=== PATIENT | male | born 1970 | race Caucasian/White ===

== ENCOUNTER 2016-12-07 16:24 | Emergency (ER) | payer MEDICAID ==
[~2016-12-07] VITALS: Ht 170.2 cm; Wt 97.1 kg
[~2016-12-07 16:24] MED LIST: AMOX1TAB12 PO; BACL-19 PO; BACL20TA PO; CARI350T PO; CYAN250013 PO; DOXY100T PO; GABA300C10 PO; HYDR-3307 PO; INSU100V8 SQ; LIDO700A5 TD; LISI-167 PO; METF100010 PO; TRAZ100T15 PO
[2016-12-07] MEDS ORDERED: ONDANSETRON 2MG/ML, 2ML IVPush ONE (17:00)
[2016-12-07] MEDS ORDERED: SODIUM CHLORIDE FLUSH 10ML SYR IVF ONE (17:00)
[2016-12-07 17:07] LABS: HEMOGLOBIN 14.8 g/dL (13.7-18.0)
[2016-12-07 17:22] LABS: BLOOD UREA NITROGEN 6 mg/dL (7-18)
[2016-12-07] MEDS ORDERED: ONDANSETRON 2MG/ML, 2ML ONE (18:20)
[2016-12-07] MEDS ORDERED: HYDROmorphone 1 MG/ML, 1ML ONE ×2 (18:20→19:15)
[2016-12-07] MEDS: HYDROmorphone 1 MG/ML, 1ML IVPush PRN ×2 (18:23→19:17)
[2016-12-07] MEDS ORDERED: OMNIPAQUE 350 MG/ML, 100ML BOTTLE ONE (20:06)
[2016-12-07] MEDS ORDERED: LORazepam 1MG TABLET PO ONE (21:00)
[2016-12-07 21:07] VITALS: BP 146/68
== END 2016-12-07 21:09 | disposition home or self-care (01) ==
LOC: ED 20:55
DX: M79.661 Pain in right lower leg (principal); I10 Essential (primary) hypertension; E11.9 Type 2 diabetes mellitus without complications; E78.00 Pure hypercholesterolemia, unspecified; M54.9 Dorsalgia, unspecified; G89.29 Other chronic pain; F10.20 Alcohol dependence, uncomplicated; F17.210 Nicotine dependence, cigarettes, uncomplicated
CPT/HCPCS: 36415; 73701; 80048; 82040; 85025; 93971; 96374; 96375; 96376; 99285; J1170; J2405; Q9967

== ENCOUNTER 2017-01-24 20:33 | Inpatient (IN) | payer MEDICAID ==
[~2017-01-24] VITALS: Ht 170.2 cm; Wt 103.5 kg
[2017-01-24] MEDS ORDERED: SODIUM CHLORIDE 0.9% 1,000 ML IV ONE (20:49)
[2017-01-24] MEDS ORDERED: ONDANSETRON 2MG/ML, 2ML IVPush ONE (21:00)
[2017-01-24] MEDS ORDERED: SODIUM CHLORIDE FLUSH 10ML SYR IVF ONE (21:00)
[2017-01-24] MEDS ORDERED: SODIUM CHLORIDE 0.9% 1,000ML IVBOLUS ONE (21:00)
[2017-01-24] MEDS ORDERED: MORPHINE SULFATE 4 MG/ML, 1ML ONE ×2 (21:18→21:34)
[2017-01-24] MEDS ORDERED: ONDANSETRON 2MG/ML, 2ML ONE (21:18)
[2017-01-24 21:22] LABS: ASPARTATE AMINO TRANSFERASE 11 U/L (15-37); BLOOD UREA NITROGEN 10 mg/dL (7-18)
[2017-01-24] MEDS: MORPHINE SULFATE 4 MG/ML, 1ML IVPush PRN ×2 (21:22→21:40)
[2017-01-24] MEDS ORDERED: CEFTRIAXONE PMX 1GM/50ML 50 ML ONE (21:55)
[2017-01-24] MEDS ORDERED: AZITHROMYCIN 500 MG in SODIUM CHLORIDE 0.9% 250 ML IV ONE (22:00)
[2017-01-24] MEDS ORDERED: CEFTRIAXONE PMX 1GM/50ML 50 ML IVPB ONE (22:00)
[2017-01-24] MEDS ORDERED: morphine SULFATE 10 MG/ML, 1ML ONE (22:21)
[2017-01-24 22:22] LABS: RAPID INFLUENZA A Negative (Negative); RAPID INFLUENZA B Negative (Negative)
[2017-01-24] MEDS: morphine SULFATE 10 MG/ML, 1ML IVPush PRN (22:26)
[2017-01-24] MEDS ORDERED: ENALAPRILAT 1.25 MG/ML, 2ML IV PRN (22:30)
[2017-01-24] MEDS ORDERED: GUAIFENESIN/DM 200-20MG, 10ML UDC PO PRN (22:30)
[2017-01-24] MEDS ORDERED: DOCUSATE 100 MG CAPSULE PO PRN (22:30)
[2017-01-24] MEDS: CEFTRIAXONE PMX 1GM/50ML 50 ML IV SCH (22:30)
[2017-01-24] MEDS ORDERED: ACETAMINOPHEN 325 MG TABLET PO PRN (22:30)
[2017-01-24] MEDS ORDERED: POLYETHYLENE GLYCOL 17 GM PACKET PO PRN (22:30)
[2017-01-24] MEDS ORDERED: hydrALAzine 20 MG/ML, 1ML IV PRN (22:30)
[2017-01-24] MEDS ORDERED: ONDANSETRON 2MG/ML, 2ML IVPush PRN (22:30)
[2017-01-24] MEDS ORDERED: LABETALOL 5MG/ML, 20ML IVPush PRN (22:30)
[2017-01-24 23:09] VITALS: BP 124/75
[2017-01-25] MEDS: NS + 20MEQ KCL 1,000 ML IV SCH ×2 (00:13→09:11)
[2017-01-25] MEDS: DOXYCYCLINE 100 MG in DEXTROSE 5% 250 ML IV SCH ×3 (00:13→21:50)
[2017-01-25] MEDS: TRAZODONE 100MG TABLET PO SCH ×2 (00:13→21:50)
[2017-01-25] MEDS: BACLOFEN 10 MG TABLET PO SCH ×3 (00:14→21:49)
[2017-01-25] MEDS: ENOXAPARIN 40 MG/0.4 ML SQ SCH ×2 (00:14→21:51)
[2017-01-25] MEDS: metFORMIN XR 500 MG TAB.ER.24H PO SCH ×3 (00:14→21:49)
[2017-01-25] MEDS: NICOTINE 14MG/24 HR PATCH.TD24 TD SCH ×2 (00:14→21:54)
[2017-01-25] MEDS: GABAPENTIN 300 MG CAPSULE PO SCH ×4 (00:14→21:47)
[2017-01-25] MEDS: LIDODERM 5% PATCH TD SCH ×2 (00:15→21:54)
[2017-01-25] MEDS: INSULIN DETEMIR 100 UNITS/ML, PEN SQ-INSULIN SCH ×3 (00:16→21:53)
[2017-01-25] MEDS: morphine SULFATE 10 MG/ML, 1ML IVPush PRN ×3 (02:18→16:42)
[2017-01-25 02:22] VITALS: BP 126/79
[2017-01-25 05:30] LABS: BLOOD UREA NITROGEN 11 mg/dL (7-18)
[2017-01-25 07:47] VITALS: BP 128/81
[2017-01-25] MEDS: LISINOPRIL 10 MG TABLET PO SCH (08:37)
[2017-01-25] MEDS: HYDROcodone/APAP 5/325 TABLET PO PRN ×2 (09:10→16:25)
[2017-01-25] MEDS: INSULIN ASPART 100 UNITS/ML, PEN SQ-INSULIN SCH ×4 (09:12→21:53)
[2017-01-25 16:37] VITALS: BP 128/79
[2017-01-25 21:24] VITALS: BP 125/77
[2017-01-25] MEDS: CEFTRIAXONE PMX 1GM/50ML 50 ML IV SCH (21:51)
[2017-01-26 00:39] VITALS: BP 143/92
[2017-01-26] MEDS: HYDROcodone/APAP 5/325 TABLET PO PRN ×3 (00:52→19:59)
[2017-01-26] MEDS: morphine SULFATE 10 MG/ML, 1ML IVPush PRN ×4 (04:35→22:35)
[2017-01-26 04:41] LABS: BLOOD UREA NITROGEN 14 mg/dL (7-18)
[2017-01-26 04:45] LABS: ASPARTATE AMINO TRANSFERASE 9 U/L (15-37)
[2017-01-26 07:32] VITALS: BP 101/61
[2017-01-26] MEDS: INSULIN ASPART 100 UNITS/ML, PEN SQ-INSULIN SCH ×4 (08:05→19:54)
[2017-01-26] MEDS: BACLOFEN 10 MG TABLET PO SCH ×2 (08:06→20:00)
[2017-01-26] MEDS: GABAPENTIN 300 MG CAPSULE PO SCH ×3 (08:06→20:00)
[2017-01-26] MEDS: LISINOPRIL 10 MG TABLET PO SCH (08:07)
[2017-01-26] MEDS: metFORMIN XR 500 MG TAB.ER.24H PO SCH ×2 (08:07→20:00)
[2017-01-26] MEDS: INSULIN DETEMIR 100 UNITS/ML, PEN SQ-INSULIN SCH ×2 (08:13→19:53)
[2017-01-26] MEDS: DOXYCYCLINE 100 MG in DEXTROSE 5% 250 ML IV SCH ×2 (09:00→23:41)
[2017-01-26 13:18] VITALS: BP 99/67
[2017-01-26] MEDS ORDERED: ALBUTEROL SULFATE 2.5 MG/3 ML ONE (17:03)
[2017-01-26] MEDS ORDERED: ALBUTEROL SULFATE 2.5 MG/3 ML NPPB PRN (17:30)
[2017-01-26 19:58] VITALS: BP 126/71
[2017-01-26] MEDS: NICOTINE 14MG/24 HR PATCH.TD24 TD SCH (20:09)
[2017-01-26] MEDS: TRAZODONE 100MG TABLET PO SCH (21:00)
[2017-01-26] MEDS: ENOXAPARIN 40 MG/0.4 ML SQ SCH (22:34)
[2017-01-26] MEDS: CEFTRIAXONE PMX 1GM/50ML 50 ML IV SCH (22:34)
[2017-01-26] MEDS: LIDODERM 5% PATCH TD SCH (22:35)
[2017-01-27 01:39] VITALS: BP 123/72
[2017-01-27] MEDS: TRAZODONE 100MG TABLET PO SCH (01:51)
[2017-01-27] MEDS: HYDROcodone/APAP 5/325 TABLET PO PRN (05:29)
[2017-01-27 06:09] LABS: ASPARTATE AMINO TRANSFERASE 13 U/L (15-37); BLOOD UREA NITROGEN 12 mg/dL (7-18)
[2017-01-27] MEDS: INSULIN ASPART 100 UNITS/ML, PEN SQ-INSULIN SCH (07:00)
[2017-01-27 07:40] VITALS: BP 115/76
[2017-01-27] MEDS ORDERED: CEFD300C37 PO (09:15)
[2017-01-27] MEDS ORDERED: DOXY100T PO (09:15)
[2017-01-27] MEDS: DOXYCYCLINE 100 MG in DEXTROSE 5% 250 ML IV SCH (09:18)
[2017-01-27] MEDS: LISINOPRIL 10 MG TABLET PO SCH (09:19)
[2017-01-27] MEDS: GABAPENTIN 300 MG CAPSULE PO SCH (09:19)
[2017-01-27] MEDS: BACLOFEN 10 MG TABLET PO SCH (09:19)
[2017-01-27] MEDS: INSULIN DETEMIR 100 UNITS/ML, PEN SQ-INSULIN SCH (09:19)
[2017-01-27] MEDS: metFORMIN XR 500 MG TAB.ER.24H PO SCH (09:19)
== END 2017-01-27 10:30 | disposition home or self-care (01) | DRG 871 ==
LOC: SUATTDRO 22:05 → ED 22:07 → EDIP 22:12 → 3NW 23:03
PROVIDERS: ADMIT Family Medicine; ATTEND Family Medicine
DX: A41.9 Sepsis, unspecified organism (principal); J18.9 Pneumonia, unspecified organism; E87.1 Hypo-osmolality and hyponatremia; I10 Essential (primary) hypertension; F17.210 Nicotine dependence, cigarettes, uncomplicated; R09.02 Hypoxemia; E11.65 Type 2 diabetes mellitus with hyperglycemia; F10.21 Alcohol dependence, in remission; J02.0 Streptococcal pharyngitis; Z71.6 Tobacco abuse counseling; Z88.6 Allergy status to analgesic agent; Z79.4 Long term (current) use of insulin; Z79.899 Other long term (current) drug therapy; Z79.84 Long term (current) use of oral hypoglycemic drugs; Z82.49 Family history of ischemic heart disease and other diseases of the circulatory system
CPT/HCPCS: 36415; 71010; 80048; 80053; 81003; 82962; 83605; 85025; 87040; 87400; 87880; 93005; 96365; 96368; 96375; 96376; J0456; J0696; J1650; J1815; J2405; J3480; J7060; J2270; J7030; J7050

== ENCOUNTER 2017-03-13 11:21 | Emergency (ER) | payer MEDICAID ==
[~2017-03-13] VITALS: Ht 170.2 cm; Wt 104.3 kg
[~2017-03-13 11:21] MED LIST changes: +CEFD300C37 PO
[2017-03-13] MEDS ORDERED: SODIUM CHLORIDE FLUSH 10ML SYR IVF ONE (12:00)
[2017-03-13] MEDS ORDERED: ONDANSETRON 2MG/ML, 2ML IVPush ONE (12:00)
[2017-03-13] MEDS ORDERED: SODIUM CHLORIDE 0.9% 1,000ML IVBOLUS ONE (12:00)
[2017-03-13] MEDS ORDERED: FAMOTIDINE 20 MG/2 ML IVP ONE (12:00)
[2017-03-13] MEDS ORDERED: MORPHINE SULFATE 4 MG/ML, 1ML ONE ×2 (12:04→12:52)
[2017-03-13] MEDS ORDERED: FAMOTIDINE 20 MG/2 ML ONE (12:04)
[2017-03-13] MEDS ORDERED: ONDANSETRON 2MG/ML, 2ML ONE (12:04)
[2017-03-13] MEDS: MORPHINE SULFATE 4 MG/ML, 1ML IVPush PRN ×2 (12:10→12:58)
[2017-03-13 12:19] LABS: ASPARTATE AMINO TRANSFERASE 26 U/L (15-37); BLOOD UREA NITROGEN 16 mg/dL (7-18)
[2017-03-13] MEDS ORDERED: SIMV10TA3 PO (13:08)
[2017-03-13] MEDS ORDERED: SIMV5TAB5 PO (13:08)
[2017-03-13 13:50] VITALS: BP 116/43
== END 2017-03-13 14:45 | disposition home or self-care (01) ==
LOC: ED 12:06
DX: R10.13 Epigastric pain (principal); R11.2 Nausea with vomiting, unspecified; R19.7 Diarrhea, unspecified; E10.65 Type 1 diabetes mellitus with hyperglycemia; I10 Essential (primary) hypertension; E78.00 Pure hypercholesterolemia, unspecified
CPT/HCPCS: 36415; 74022; 80053; 81003; 82010; 82800; 82962; 83690; 85025; 93005; 96361; 96374; 96375; 96376; 99285; J2405; J7030; S0028

== ENCOUNTER 2017-04-04 15:20 | Emergency (ER) | payer MEDICAID ==
[~2017-04-04] VITALS: Ht 170.2 cm; Wt 103.5 kg
[~2017-04-04 15:20] MED LIST changes: +SIMV10TA3 PO; +SIMV5TAB5 PO
[2017-04-04] MEDS ORDERED: SODIUM CHLORIDE FLUSH 10ML SYR IVF ONE (15:30)
[2017-04-04] MEDS ORDERED: SODIUM CHLORIDE 0.9% 1,000ML IVBOLUS ONE (15:30)
[2017-04-04 15:46] LABS: PH, VENOUS 7.405 pH (7.320-7.420)
[2017-04-04 15:59] LABS: BLOOD UREA NITROGEN 13 mg/dL (7-18)
[2017-04-04 16:47] VITALS: BP 117/88
[2017-04-04] MEDS ORDERED: INSULIN REGULAR 100 UNITS/ML, 3ML VIAL SQ-INSULIN ONE (17:00)
[2017-04-04] MEDS ORDERED: INSULIN SINGLE DOSE, ER SQ-INSULIN ONE (17:04)
== END 2017-04-04 17:31 | disposition home or self-care (01) ==
LOC: ED 17:26
DX: E11.65 Type 2 diabetes mellitus with hyperglycemia (principal); Z79.4 Long term (current) use of insulin
CPT/HCPCS: 36415; 80048; 82010; 82040; 82803; 82962; 85025; 96360; 99284; J7030

== ENCOUNTER 2017-04-05 10:21 | Emergency (ER) | payer MEDICAID ==
[~2017-04-05] VITALS: Ht 170.2 cm; Wt 104.6 kg
[2017-04-05] MEDS ORDERED: SODIUM CHLORIDE 0.9% 1,000ML IVBOLUS ONE (11:00)
[2017-04-05] MEDS ORDERED: ONDANSETRON 2MG/ML, 2ML IVPush ONE (11:00)
[2017-04-05] MEDS ORDERED: ONDANSETRON 2MG/ML, 2ML ONE (11:07)
[2017-04-05] MEDS ORDERED: MORPHINE SULFATE 4 MG/ML, 1ML ONE ×2 (11:07→12:10)
[2017-04-05 11:11] LABS: ABG COLLECTION SITE NOT DOCUMENTED
[2017-04-05] MEDS: MORPHINE SULFATE 4 MG/ML, 1ML IVPush PRN ×2 (11:11→12:12)
[2017-04-05 11:13] LABS: BLOOD UREA NITROGEN 10 mg/dL (7-18)
[2017-04-05 12:05] VITALS: BP 121/61
== END 2017-04-05 12:36 | disposition home or self-care (01) ==
LOC: ED 10:40
DX: E11.65 Type 2 diabetes mellitus with hyperglycemia (principal); K08.89 Other specified disorders of teeth and supporting structures; E78.00 Pure hypercholesterolemia, unspecified; F10.229 Alcohol dependence with intoxication, unspecified; I10 Essential (primary) hypertension; Z79.4 Long term (current) use of insulin
CPT/HCPCS: 36415; 80048; 81003; 82010; 82040; 82803; 82962; 85025; 96374; 96375; 96376; 99284; J2405; J7030

== ENCOUNTER 2017-04-09 09:38 | Emergency (ER) | payer MEDICAID ==
[~2017-04-09] VITALS: Ht 162.6 cm; Wt 100.0 kg
[2017-04-09] MEDS ORDERED: DEXAMETHASONE 4 MG/ML, 1ML IVPush ONE (10:00)
[2017-04-09] MEDS ORDERED: MORPHINE SULFATE 4 MG/ML, 1ML IVPush ONE (10:00)
[2017-04-09] MEDS ORDERED: CLINDAMYCIN PMX 900MG/50ML 50 ML IV ONE (10:00)
[2017-04-09] MEDS ORDERED: MORPHINE SULFATE 4 MG/ML, 1ML ONE (10:07)
[2017-04-09] MEDS ORDERED: CLINDAMYCIN PMX 900MG/50ML 50 ML ONE (10:08)
[2017-04-09] MEDS ORDERED: DEXAMETHASONE 4 MG/ML, 1ML ONE (10:08)
[2017-04-09 10:15] VITALS: BP 136/85
[2017-04-10] MEDS ORDERED: OXYC5CAP4 PO (15:01)
== END 2017-04-09 11:24 | disposition home or self-care (01) ==
LOC: ED 09:52
DX: L03.211 Cellulitis of face (principal); E78.00 Pure hypercholesterolemia, unspecified; F10.229 Alcohol dependence with intoxication, unspecified; M54.9 Dorsalgia, unspecified; G89.29 Other chronic pain; E11.9 Type 2 diabetes mellitus without complications; I10 Essential (primary) hypertension; Z87.891 Personal history of nicotine dependence; Z90.49 Acquired absence of other specified parts of digestive tract
CPT/HCPCS: 96365; 96375; 99284; J1100

== ENCOUNTER 2017-04-10 14:46 | Emergency (ER) | payer MEDICAID ==
[~2017-04-10] VITALS: Ht 170.2 cm; Wt 103.0 kg
[2017-04-10] MEDS ORDERED: OXYC5CAP4 PO (15:01)
[2017-04-10] MEDS ORDERED: FAMOTIDINE 20 MG/2 ML ONE (15:21)
[2017-04-10] MEDS ORDERED: ONDANSETRON 2MG/ML, 2ML ONE (15:21)
[2017-04-10] MEDS ORDERED: ACETAMINOPHEN 325 MG TABLET ONE (15:21)
[2017-04-10] MEDS ORDERED: ACETAMINOPHEN 325 MG TABLET PO ONE (15:30)
[2017-04-10] MEDS ORDERED: FAMOTIDINE 20 MG/2 ML IVPush ONE (15:30)
[2017-04-10] MEDS ORDERED: ONDANSETRON 2MG/ML, 2ML IVPush ONE (15:30)
[2017-04-10] MEDS ORDERED: SODIUM CHLORIDE 0.9% 1,000ML IVBOLUS ONE (15:30)
[2017-04-10 15:31] LABS: PH, VENOUS 7.374 pH (7.320-7.420)
[2017-04-10 15:41] LABS: ASPARTATE AMINO TRANSFERASE 7 U/L (15-37); BLOOD UREA NITROGEN 20 mg/dL (7-18)
[2017-04-10] MEDS ORDERED: AMPICILLIN/SULBACTAM 3 GM IM ONE (16:00)
[2017-04-10] MEDS ORDERED: OMNIPAQUE 350 MG/ML, 100ML BOTTLE ONE (16:11)
[2017-04-10 17:07] VITALS: BP 89/67
== END 2017-04-10 17:10 | disposition left against medical advice (07) ==
LOC: ED 15:28
DX: K04.7 Periapical abscess without sinus (principal); F17.200 Nicotine dependence, unspecified, uncomplicated; E78.00 Pure hypercholesterolemia, unspecified; I10 Essential (primary) hypertension; E11.65 Type 2 diabetes mellitus with hyperglycemia; Z90.49 Acquired absence of other specified parts of digestive tract; Z79.82 Long term (current) use of aspirin
CPT/HCPCS: 36415; 70487; 80053; 82010; 82803; 83605; 85025; 87040; 96361; 96374; 96375; 99285; J2405; J7030; Q9967; S0028

== ENCOUNTER 2017-09-20 17:13 | Emergency (ER) | payer MEDICAID ==
[~2017-09-20] VITALS: Ht 170.2 cm; Wt 100.0 kg
[~2017-09-20 17:13] MED LIST changes: +OXYC5CAP2 PO
[2017-09-20 18:11] LABS: BASOPHILS # (AUTO) 0.05 x10^3/uL (0-0.1); BASOPHILS % (AUTO) 1 % (0-1); EOSINOPHILS # (AUTO) 0.17 x10^3/uL (0-0.4); EOSINOPHILS % (AUTO) 2 % (1-7); LYMPHOCYTES # (AUTO) 3.34 x10^3/uL (1-3.4); LYMPHOCYTES % (AUTO) 45 % (22-44); MD NO; MEAN CORPUSCULAR HEMOGLOBIN 34.6 pg (27.5-34.5); MEAN CORPUSCULAR VOLUME 101.9 fL (81-97); MEAN PLATELET VOLUME 7.9 fL (7.4-10.4); MONOCYTES # (AUTO) 0.53 x10^3/uL (0.2-0.8); MONOCYTES % (AUTO) 7 % (2-9); NEUTROPHILS # (AUTO) 3.35 x10^3/uL (1.8-6.8); NEUTROPHILS % (AUTO) 45 % (42-75); PLATELET COUNT 244 x10^3/uL (130-400); RED BLOOD COUNT 4.56 x10^6/uL (4.38-5.82); RED CELL DISTRIBUTION WIDTH 14.2 % (9.4-14.8)
[2017-09-20 18:24] LABS: ALANINE AMINOTRANSFERASE 137 U/L (12-78); ALBUMIN 3.8 g/dL (3.4-5.0); ANION GAP 15 mmol/L (5-15); CALCIUM 8.2 mg/dL (8.5-10.1); CHLORIDE 100 mmol/L (98-107); CREATININE 0.88 mg/dL (0.7-1.3)
[2017-09-20 18:26] LABS: ALKALINE PHOSPHATASE 95 U/L (45-117); BILIRUBIN,TOTAL 0.4 mg/dL (0.2-1.0); TOTAL PROTEIN 7.8 g/dL (6.4-8.2)
[2017-09-20 19:52] VITALS: BP 107/52
== END 2017-09-20 20:47 | disposition home or self-care (01) ==
LOC: ED 20:38
DX: E11.65 Type 2 diabetes mellitus with hyperglycemia (principal); E78.00 Pure hypercholesterolemia, unspecified; I10 Essential (primary) hypertension; I25.2 Old myocardial infarction; Z88.6 Allergy status to analgesic agent; Z90.49 Acquired absence of other specified parts of digestive tract; F10.229 Alcohol dependence with intoxication, unspecified
CPT/HCPCS: 36415; 71045; 80053; 83605; 85025; 93005; 99285

== ENCOUNTER 2017-09-23 17:31 | Emergency (ER) | payer MEDICAID ==
[~2017-09-23] VITALS: Ht 170.2 cm; Wt 91.1 kg
[2017-09-23] MEDS ORDERED: INSULIN REGULAR 100 UNITS/ML, 3ML VIAL ONE ×2 (17:50→19:47)
[2017-09-23 17:52] LABS: PH, VENOUS 7.411 pH (7.320-7.420)
[2017-09-23 17:56] LABS: BASOPHILS # (AUTO) 0.03 x10^3/uL (0-0.1); BASOPHILS % (AUTO) 1 % (0-1); EOSINOPHILS # (AUTO) 0.15 x10^3/uL (0-0.4); EOSINOPHILS % (AUTO) 3 % (1-7); LYMPHOCYTES # (AUTO) 1.76 x10^3/uL (1-3.4); LYMPHOCYTES % (AUTO) 33 % (22-44); MD NO; MEAN CORPUSCULAR HEMOGLOBIN 34.9 pg (27.5-34.5); MEAN CORPUSCULAR HGB CONC 34.1 g/dL (33.2-36.2); MEAN CORPUSCULAR VOLUME 102.5 fL (81-97); MEAN PLATELET VOLUME 8.3 fL (7.4-10.4); MONOCYTES # (AUTO) 0.47 x10^3/uL (0.2-0.8); MONOCYTES % (AUTO) 9 % (2-9); NEUTROPHILS # (AUTO) 2.94 x10^3/uL (1.8-6.8); NEUTROPHILS % (AUTO) 55 % (42-75); PLATELET COUNT 161 x10^3/uL (130-400); RED BLOOD COUNT 4.42 x10^6/uL (4.38-5.82); RED CELL DISTRIBUTION WIDTH 13.5 % (9.4-14.8)
[2017-09-23] MEDS ORDERED: FLUO10TA PO (17:56)
[2017-09-23] MEDS ORDERED: INSULIN REGULAR 100 UNITS/ML, 3ML VIAL SQ-INSULIN ONE (18:00)
[2017-09-23] MEDS ORDERED: HYDROcodone/APAP 5/325 TABLET PO ONE ×2 (18:00→20:00)
[2017-09-23] MEDS ORDERED: SODIUM CHLORIDE 0.9% 1,000ML IVBOLUS ONE (18:00)
[2017-09-23 18:05] LABS: ALANINE AMINOTRANSFERASE 98 U/L (12-78); ALBUMIN 3.3 g/dL (3.4-5.0); ANION GAP 8 mmol/L (5-15); CALCIUM 8.7 mg/dL (8.5-10.1); CHLORIDE 97 mmol/L (98-107); CREATININE 0.97 mg/dL (0.7-1.3)
[2017-09-23 18:07] LABS: ALKALINE PHOSPHATASE 101 U/L (45-117); BILIRUBIN,TOTAL 0.8 mg/dL (0.2-1.0); TOTAL PROTEIN 6.8 g/dL (6.4-8.2)
[2017-09-23 18:10] LABS: ACETONE, SERUM Negative (Negative)
[2017-09-23] MEDS ORDERED: HYDROcodone/APAP 5/325 TABLET ONE ×2 (18:20→19:52)
[2017-09-23] MEDS ORDERED: metFORMIN 500 MG TABLET PO ONE (18:30)
[2017-09-23] MEDS ORDERED: INSULIN REGULAR 100 UNITS/ML, 3ML VIAL IVPush ONE (19:30)
[2017-09-23 20:12] VITALS: BP 122/76
== END 2017-09-23 21:00 | disposition home or self-care (01) ==
LOC: ED 19:56
DX: E11.65 Type 2 diabetes mellitus with hyperglycemia (principal); Z79.4 Long term (current) use of insulin
CPT/HCPCS: 36415; 80053; 82010; 82803; 83690; 85025; 96361; 96372; 96374; 99284; J7030

== ENCOUNTER 2017-10-06 02:35 | Emergency (ER) | payer MEDICAID ==
[~2017-10-06] VITALS: Ht 170.2 cm; Wt 95.7 kg
[~2017-10-06 02:35] MED LIST changes: +FLUO10TA PO
[2017-10-06 02:37] VITALS: BP 137/90
[2017-10-06] MEDS ORDERED: AZITHROMYCIN 500 MG TABLET PO ONE (03:30)
[2017-10-06] MEDS ORDERED: CEFTRIAXONE 250 MG IM ONE (03:30)
[2017-10-06] MEDS ORDERED: AZITHROMYCIN 250 MG TABLET ONE (03:42)
[2017-10-06] MEDS ORDERED: CEFTRIAXONE 250 MG ONE (03:42)
== END 2017-10-06 03:54 | disposition home or self-care (01) ==
LOC: ED 03:10
DX: A56.01 Chlamydial cystitis and urethritis (principal); B37.42 Candidal balanitis
CPT/HCPCS: 87491; 87591; 96372; 99284; J0696

== ENCOUNTER 2018-03-29 14:25 | Emergency (ER) | payer MEDICAID ==
[~2018-03-29] VITALS: Ht 170.2 cm; Wt 99.5 kg
[2018-03-29] MEDS ORDERED: MORPHINE SULFATE 4 MG/ML, 1ML ONE ×2 (15:20→15:56)
[2018-03-29] MEDS ORDERED: ONDANSETRON 2MG/ML, 2ML ONE (15:20)
[2018-03-29] MEDS ORDERED: ONDANSETRON 2MG/ML, 2ML IVPush ONE (15:30)
[2018-03-29] MEDS ORDERED: SODIUM CHLORIDE FLUSH 10ML SYR IVF ONE (15:30)
[2018-03-29 15:33] LABS: BASOPHILS # (AUTO) 0.04 x10^3/uL (0-0.1); BASOPHILS % (AUTO) 0 % (0-1); EOSINOPHILS # (AUTO) 0.14 x10^3/uL (0-0.4); EOSINOPHILS % (AUTO) 1 % (1-7); LYMPHOCYTES # (AUTO) 2.22 x10^3/uL (1-3.4); LYMPHOCYTES % (AUTO) 22 % (22-44); MD NO; MEAN CORPUSCULAR HEMOGLOBIN 32.9 pg (27.5-34.5); MEAN CORPUSCULAR HGB CONC 33.4 g/dL (33.2-36.2); MEAN CORPUSCULAR VOLUME 98.7 fL (81-97); MEAN PLATELET VOLUME 8.4 fL (7.4-10.4); MONOCYTES # (AUTO) 0.64 x10^3/uL (0.2-0.8); MONOCYTES % (AUTO) 6 % (2-9); NEUTROPHILS # (AUTO) 7.09 x10^3/uL (1.8-6.8); NEUTROPHILS % (AUTO) 70 % (42-75); PLATELET COUNT 200 x10^3/uL (130-400); RED BLOOD COUNT 4.98 x10^6/uL (4.38-5.82)
[2018-03-29] MEDS: MORPHINE SULFATE 4 MG/ML, 1ML IVPush PRN ×2 (15:36→15:59)
[2018-03-29 15:44] LABS: ALBUMIN 3.9 g/dL (3.4-5.0); ANION GAP 8 mmol/L (5-15); CALCIUM 9.1 mg/dL (8.5-10.1); CHLORIDE 102 mmol/L (98-107); CREATININE 0.87 mg/dL (0.7-1.3)
[2018-03-29 16:43] VITALS: BP 179/83
== END 2018-03-29 17:16 | disposition home or self-care (01) ==
LOC: ED 17:04
DX: H60.12 Cellulitis of left external ear (principal); L03.211 Cellulitis of face; H93.8X2 Other specified disorders of left ear; I10 Essential (primary) hypertension; E11.9 Type 2 diabetes mellitus without complications; E78.00 Pure hypercholesterolemia, unspecified; Z87.891 Personal history of nicotine dependence
CPT/HCPCS: 36415; 70487; 80048; 82040; 85025; 96374; 96375; 99285; J2405

== ENCOUNTER 2018-04-01 17:30 | Inpatient (IN) | payer MEDICAID ==
[~2018-04-01] VITALS: Ht 170.2 cm; Wt 88.0 kg
[2018-04-01] MEDS ORDERED: ACETAMINOPHEN 500 MG TABLET PO ONE (18:30)
[2018-04-01] MEDS ORDERED: FAMOTIDINE 20 MG/2 ML IVPush ONE (18:30)
[2018-04-01] MEDS ORDERED: SODIUM CHLORIDE 0.9% 1,000ML IVBOLUS ONE (18:30)
[2018-04-01] MEDS ORDERED: ONDANSETRON 2MG/ML, 2ML IVPush ONE (18:30)
[2018-04-01] MEDS ORDERED: PANTOPRAZOLE 40 MG IV IVPush ONE (18:30)
[2018-04-01 18:42] LABS: BASOPHILS # (AUTO) 0.04 x10^3/uL (0-0.1); BASOPHILS % (AUTO) 0 % (0-1); EOSINOPHILS # (AUTO) 0.11 x10^3/uL (0-0.4); EOSINOPHILS % (AUTO) 1 % (1-7); LYMPHOCYTES # (AUTO) 2.11 x10^3/uL (1-3.4); LYMPHOCYTES % (AUTO) 25 % (22-44); MD NO; MEAN CORPUSCULAR HEMOGLOBIN 33.8 pg (27.5-34.5); MEAN CORPUSCULAR HGB CONC 34.1 g/dL (33.2-36.2); MEAN CORPUSCULAR VOLUME 99.1 fL (81-97); MEAN PLATELET VOLUME 8.4 fL (7.4-10.4); MONOCYTES # (AUTO) 0.62 x10^3/uL (0.2-0.8); MONOCYTES % (AUTO) 8 % (2-9); NEUTROPHILS # (AUTO) 5.47 x10^3/uL (1.8-6.8); NEUTROPHILS % (AUTO) 66 % (42-75); PLATELET COUNT 222 x10^3/uL (130-400); RED BLOOD COUNT 4.89 x10^6/uL (4.38-5.82); RED CELL DISTRIBUTION WIDTH 13.8 % (9.4-14.8)
[2018-04-01 18:54] LABS: ALANINE AMINOTRANSFERASE 43 U/L (12-78); ALBUMIN 3.7 g/dL (3.4-5.0); ANION GAP 9 mmol/L (5-15); CALCIUM 9.2 mg/dL (8.5-10.1); CHLORIDE 104 mmol/L (98-107); CREATININE 0.88 mg/dL (0.7-1.3)
[2018-04-01 18:57] LABS: ALKALINE PHOSPHATASE 67 U/L (45-117); BILIRUBIN,TOTAL 0.6 mg/dL (0.2-1.0); TOTAL PROTEIN 7.7 g/dL (6.4-8.2)
[2018-04-01] MEDS ORDERED: FAMOTIDINE 20 MG/2 ML ONE (18:58)
[2018-04-01] MEDS ORDERED: ONDANSETRON 2MG/ML, 2ML ONE (18:58)
[2018-04-01] MEDS ORDERED: ACETAMINOPHEN 500 MG TABLET ONE (18:58)
[2018-04-01] MEDS ORDERED: PANTOPRAZOLE 40 MG IV ONE (18:58)
[2018-04-01 18:59] LABS: MICROSCOPIC NOT IND
[2018-04-01 19:04] LABS: CULTURE INDICATED? NO
[2018-04-01] MEDS ORDERED: OMNIPAQUE 350 MG/ML, 100ML BOTTLE ONE (19:42)
[2018-04-01] MEDS ORDERED: INSU100I34 SC (21:09)
[2018-04-01] MEDS ORDERED: CLON1TAB23 PO (21:09)
[2018-04-01] MEDS ORDERED: QUET300T5 PO (21:09)
[2018-04-01] MEDS ORDERED: CEPH-376 PO (21:09)
[2018-04-01] MEDS ORDERED: METO25TA35 PO (21:09)
[2018-04-01] MEDS ORDERED: ONDANSETRON 2MG/ML, 2ML IVPush PRN (21:30)
[2018-04-01] MEDS ORDERED: CEFTRIAXONE 250 MG IV ONE (21:30)
[2018-04-01] MEDS ORDERED: POLYETHYLENE GLYCOL 17 GM PACKET PO PRN (21:30)
[2018-04-01] MEDS ORDERED: ACETAMINOPHEN 325 MG TABLET PO PRN (21:30)
[2018-04-01] MEDS ORDERED: AZITHROMYCIN 500 MG TABLET PO ONE (21:30)
[2018-04-01] MEDS ORDERED: BISACODYL 10 MG SUPP PR PRN (21:30)
[2018-04-01 21:35] LABS: HEMOGLOBIN A1C 10.2 % (4.2-6.3)
[2018-04-01] MEDS ORDERED: CEPHALEXIN 500 MG CAPSULE ONE (21:37)
[2018-04-01] MEDS ORDERED: AZITHROMYCIN 500 MG TABLET ONE (21:37)
[2018-04-01] MEDS ORDERED: CEFTRIAXONE 250 MG ONE (21:37)
[2018-04-01] MEDS: SODIUM CHLORIDE FLUSH 10ML SYR IVF SCH (21:41)
[2018-04-01] MEDS: CEPHALEXIN 500 MG CAPSULE PO SCH (21:42)
[2018-04-01 21:55] LABS: FOLATE LEVEL > 20.0 ng/mL (3.1-17.5)
[2018-04-01] MEDS: NICOTINE 7 MG/24 HR PATCH.TD24 TD SCH (22:51)
[2018-04-01] MEDS: SIMVASTATIN 10 MG TABLET PO SCH (22:51)
[2018-04-01] MEDS: HYDROcodone/APAP 10/325 MG TABLET PO PRN (22:51)
[2018-04-01] MEDS: INSULIN LISPRO 100 UNITS/ML, PEN SQ-INSULIN SCH (22:51)
[2018-04-01] MEDS: QUETIAPINE 100MG TABLET PO SCH (22:51)
[2018-04-02 02:14] VITALS: BP 107/70
[2018-04-02] MEDS: CEPHALEXIN 500 MG CAPSULE PO SCH ×2 (02:49→12:00)
[2018-04-02] MEDS: INSULIN LISPRO 100 UNITS/ML, PEN SQ-INSULIN SCH ×3 (03:30→18:08)
[2018-04-02 05:15] LABS: CHLORIDE 108 mmol/L (98-107)
[2018-04-02 05:25] LABS: BASOPHILS # (AUTO) 0.04 x10^3/uL (0-0.1); BASOPHILS % (AUTO) 1 % (0-1); EOSINOPHILS % (AUTO) 3 % (1-7); LYMPHOCYTES # (AUTO) 2.39 x10^3/uL (1-3.4); LYMPHOCYTES % (AUTO) 38 % (22-44); MD NO; MEAN CORPUSCULAR HEMOGLOBIN 33.9 pg (27.5-34.5); MEAN CORPUSCULAR HGB CONC 34.2 g/dL (33.2-36.2); MEAN CORPUSCULAR VOLUME 99.2 fL (81-97); MEAN PLATELET VOLUME 8.7 fL (7.4-10.4); MONOCYTES # (AUTO) 0.57 x10^3/uL (0.2-0.8); MONOCYTES % (AUTO) 9 % (2-9); NEUTROPHILS # (AUTO) 3.11 x10^3/uL (1.8-6.8); NEUTROPHILS % (AUTO) 49 % (42-75); PLATELET COUNT 205 x10^3/uL (130-400); RED BLOOD COUNT 4.51 x10^6/uL (4.38-5.82); RED CELL DISTRIBUTION WIDTH 14.3 % (9.4-14.8)
[2018-04-02 05:27] LABS: ALANINE AMINOTRANSFERASE 35 U/L (12-78); ALBUMIN 3.2 g/dL (3.4-5.0); ALKALINE PHOSPHATASE 54 U/L (45-117); ANION GAP 8 mmol/L (5-15); BILIRUBIN,TOTAL 0.9 mg/dL (0.2-1.0); CALCIUM 8.8 mg/dL (8.5-10.1); CREATININE 0.76 mg/dL (0.7-1.3); TOTAL PROTEIN 6.6 g/dL (6.4-8.2)
[2018-04-02 06:49] VITALS: BP 123/82
[2018-04-02] MEDS: SENNA/DOCUSATE TABLET PO SCH (09:00)
[2018-04-02] MEDS: ALBUTEROL SULFATE 2.5MG/0.5ML NPPB SCH ×4 (12:00→22:00)
[2018-04-02] MEDS: PANTOPRAZOLE 40 MG IV IVPush SCH ×2 (12:00→22:36)
[2018-04-02] MEDS: LISINOPRIL 10 MG TABLET PO SCH (12:00)
[2018-04-02] MEDS: METOPROLOL TARTRATE 25 MG TABLET PO SCH (12:00)
[2018-04-02] MEDS: SODIUM CHLORIDE FLUSH 10ML SYR IVF SCH ×2 (12:00→22:36)
[2018-04-02] MEDS: FLUOXETINE 10 MG CAP PO SCH (12:00)
[2018-04-02 13:17] VITALS: BP 104/69
[2018-04-02] MEDS: SUCRALFATE 1 GM TABLET PO SCH ×2 (18:08→22:36)
[2018-04-02] MEDS: AMPICILLIN/SULBACTAM 3 GM in SODIUM CHLORIDE 0.9% 100 ML IV SCH (18:08)
[2018-04-02 19:19] VITALS: BP 107/71
[2018-04-02] MEDS ORDERED: CYCL-259 PO ×2 (20:36→20:40)
[2018-04-02] MEDS ORDERED: CYCLOBENZAPRINE 10 MG TABLET PO PRN (21:00)
[2018-04-02] MEDS: NICOTINE 7 MG/24 HR PATCH.TD24 TD SCH (22:35)
[2018-04-02] MEDS: HYDROcodone/APAP 10/325 MG TABLET PO PRN (22:37)
[2018-04-02] MEDS: SIMVASTATIN 10 MG TABLET PO SCH (22:37)
[2018-04-02] MEDS: QUETIAPINE 100MG TABLET PO SCH (22:37)
[2018-04-03] MEDS: AMPICILLIN/SULBACTAM 3 GM in SODIUM CHLORIDE 0.9% 100 ML IV SCH ×5 (00:06→23:59)
[2018-04-03] MEDS: INSULIN LISPRO 100 UNITS/ML, PEN SQ-INSULIN SCH ×5 (00:17→21:04)
[2018-04-03 01:09] VITALS: BP 98/64
[2018-04-03] MEDS: ALBUTEROL SULFATE 2.5MG/0.5ML NPPB SCH ×5 (06:00→22:37)
[2018-04-03 07:20] VITALS: BP 102/67
[2018-04-03] MEDS: SENNA/DOCUSATE TABLET PO SCH (09:00)
[2018-04-03] MEDS ORDERED: DIAZEPAM 5 MG/ML, 2ML IV ONE (09:00)
[2018-04-03] MEDS: LISINOPRIL 10 MG TABLET PO SCH (09:46)
[2018-04-03] MEDS: METOPROLOL TARTRATE 25 MG TABLET PO SCH (09:46)
[2018-04-03] MEDS: PANTOPRAZOLE 40 MG IV IVPush SCH (09:46)
[2018-04-03] MEDS: SUCRALFATE 1 GM TABLET PO SCH ×4 (09:46→21:03)
[2018-04-03] MEDS: FLUOXETINE 10 MG CAP PO SCH (09:46)
[2018-04-03] MEDS: SODIUM CHLORIDE FLUSH 10ML SYR IVF SCH ×2 (09:47→21:05)
[2018-04-03] MEDS ORDERED: MIDAZOLAM 1 MG/ML, 2ML ONE (10:32)
[2018-04-03] MEDS ORDERED: FENTANYL PF 250 MCG/5ML ONE (10:32)
[2018-04-03] MEDS: PANTOPROZOLE 40MG TABLET PO SCH (11:30)
[2018-04-03] MEDS: HYDROcodone/APAP 10/325 MG TABLET PO PRN ×2 (12:16→21:35)
[2018-04-03 13:22] VITALS: BP 125/80
[2018-04-03 19:16] VITALS: BP 108/74
[2018-04-03] MEDS: QUETIAPINE 100MG TABLET PO SCH (21:04)
[2018-04-03] MEDS: NICOTINE 7 MG/24 HR PATCH.TD24 TD SCH (21:04)
[2018-04-03] MEDS: SIMVASTATIN 10 MG TABLET PO SCH (21:04)
[2018-04-03] MEDS ORDERED: ALBUTEROL SULFATE 2.5 MG/3 ML ONE (22:34)
[2018-04-04 01:08] VITALS: BP 114/68
[2018-04-04] MEDS: AMPICILLIN/SULBACTAM 3 GM in SODIUM CHLORIDE 0.9% 100 ML IV SCH ×2 (05:49→12:40)
[2018-04-04] MEDS: ALBUTEROL SULFATE 2.5MG/0.5ML NPPB SCH (06:00)
[2018-04-04 07:15] VITALS: BP 106/71
[2018-04-04] MEDS ORDERED: ALBUTEROL SULFATE 2.5MG/0.5ML NPPB PRN (07:30)
[2018-04-04] MEDS: INSULIN LISPRO 100 UNITS/ML, PEN SQ-INSULIN SCH ×3 (08:14→16:31)
[2018-04-04] MEDS: METOPROLOL TARTRATE 25 MG TABLET PO SCH (08:15)
[2018-04-04] MEDS: FLUOXETINE 10 MG CAP PO SCH (08:15)
[2018-04-04] MEDS: LISINOPRIL 10 MG TABLET PO SCH (08:15)
[2018-04-04] MEDS: PANTOPROZOLE 40MG TABLET PO SCH (08:15)
[2018-04-04] MEDS: SENNA/DOCUSATE TABLET PO SCH (08:15)
[2018-04-04] MEDS: SODIUM CHLORIDE FLUSH 10ML SYR IVF SCH (08:16)
[2018-04-04] MEDS: SUCRALFATE 1 GM TABLET PO SCH ×3 (08:16→16:33)
[2018-04-04 13:05] VITALS: BP 131/84
[2018-04-04] MEDS ORDERED: SUCR1TAB33 PO (16:22)
[2018-04-04] MEDS ORDERED: PANT40TA5 PO (16:22)
[2018-04-04] MEDS ORDERED: AMOX1TAB64 PO (16:27)
== END 2018-04-04 17:02 | disposition home or self-care (01) | DRG 378 ==
LOC: ED 20:56 → EDIP 21:01 → ED 21:21 → 3NE 22:03
PROVIDERS: ADMIT Internal Medicine; ATTEND Internal Medicine
PROC: 0DB68ZX Excision of Stomach, Via Natural or Artificial Opening Endoscopic, Diagnostic (ICD-10-PCS; principal; 2018-04-03 10:30)
DX: K29.91 Gastroduodenitis, unspecified, with bleeding (principal); F11.20 Opioid dependence, uncomplicated; L03.211 Cellulitis of face; D75.89 Other specified diseases of blood and blood-forming organs; E11.65 Type 2 diabetes mellitus with hyperglycemia; F10.21 Alcohol dependence, in remission; F17.210 Nicotine dependence, cigarettes, uncomplicated; F41.1 Generalized anxiety disorder; G89.29 Other chronic pain; I10 Essential (primary) hypertension; T39.395A Adverse effect of other nonsteroidal anti-inflammatory drugs [NSAID], initial encounter; M54.9 Dorsalgia, unspecified; F32.9 Major depressive disorder, single episode, unspecified; J32.0 Chronic maxillary sinusitis; J32.2 Chronic ethmoidal sinusitis; N34.2 Other urethritis; Z79.4 Long term (current) use of insulin; Y92.89 Other specified places as the place of occurrence of the external cause; Z82.49 Family history of ischemic heart disease and other diseases of the circulatory system; Z93.3 Colostomy status; Z90.49 Acquired absence of other specified parts of digestive tract; Z90.89 Acquired absence of other organs; Z71.6 Tobacco abuse counseling; Z88.6 Allergy status to analgesic agent
CPT/HCPCS: 36415; 99285; J7611; S0028; 70460; 80053; 81003; 82607; 82746; 82962; 83036; 83605; 83690; 85025; 86677; 86850; 86900; 87491; 87591; 88305; 94640; 96374; 96375; J0295; J0696; J2250; J2405; J3010; Q9967; C9113; J1815; J7030

== ENCOUNTER 2018-05-05 23:13 | Observation (INO) | payer MEDICAID ==
[~2018-05-05] VITALS: Ht 167.6 cm; Wt 104.1 kg
[~2018-05-05 23:13] MED LIST changes: +AMOX1TAB64 PO; +CEPH-376 PO; +CLON1TAB23 PO; +CYCL-259 PO; +INSU100I34 SC; +METO25TA35 PO; +PANT40TA5 PO; +QUET300T5 PO; +SUCR1TAB33 PO; +TRAZ-137 PO; -TRAZ100T15 PO
[2018-05-05] MEDS ORDERED: SODIUM CHLORIDE FLUSH 10ML SYR IVF ONE (23:30)
[2018-05-05] MEDS ORDERED: MORPHINE SULFATE 4 MG/ML, 1ML IVPush PRN (23:30)
[2018-05-05 23:41] LABS: BASOPHILS # (AUTO) 0.05 x10^3/uL (0-0.1); BASOPHILS % (AUTO) 1 % (0-1); EOSINOPHILS # (AUTO) 0.26 x10^3/uL (0-0.4); EOSINOPHILS % (AUTO) 3 % (1-7); LYMPHOCYTES # (AUTO) 3.81 x10^3/uL (1-3.4); LYMPHOCYTES % (AUTO) 41 % (22-44); MD NO; MEAN CORPUSCULAR HEMOGLOBIN 33.3 pg (27.5-34.5); MEAN PLATELET VOLUME 8.3 fL (7.4-10.4); MONOCYTES # (AUTO) 0.69 x10^3/uL (0.2-0.8); MONOCYTES % (AUTO) 7 % (2-9); NEUTROPHILS # (AUTO) 4.48 x10^3/uL (1.8-6.8); NEUTROPHILS % (AUTO) 48 % (42-75); PLATELET COUNT 247 x10^3/uL (130-400); RED BLOOD COUNT 4.76 x10^6/uL (4.38-5.82); RED CELL DISTRIBUTION WIDTH 13.7 % (9.4-14.8)
[2018-05-05] MEDS ORDERED: MORPHINE SULFATE 4 MG/ML, 1ML ONE (23:43)
[2018-05-05 23:50] LABS: INTERNATIONAL NORMALIZED RATIO 1.07 (0.93-1.1)
[2018-05-05 23:52] LABS: ALANINE AMINOTRANSFERASE 60 U/L (12-78); ALBUMIN 3.7 g/dL (3.4-5.0); ANION GAP 13 mmol/L (5-15); CALCIUM 8.5 mg/dL (8.5-10.1); CHLORIDE 101 mmol/L (98-107); CREATININE 0.86 mg/dL (0.7-1.3)
[2018-05-05 23:57] LABS: ALKALINE PHOSPHATASE 91 U/L (45-117); BILIRUBIN,TOTAL 0.5 mg/dL (0.2-1.0); TOTAL PROTEIN 7.8 g/dL (6.4-8.2); TROPONIN I < 0.015 ng/mL (0.000-0.045)
[2018-05-06] MEDS ORDERED: MAALOX/HYOSCYAMINE/LIDOCAINE 45 ML BTL ONE (00:18)
[2018-05-06] MEDS ORDERED: PANTOPRAZOLE 40 MG IV ONE (00:18)
[2018-05-06] MEDS ORDERED: PANTOPRAZOLE 40 MG IV IVPush SCH (00:30)
[2018-05-06] MEDS ORDERED: MAALOX/HYOSCYAMINE/LIDOCAINE 45 ML BTL PO ONE (00:30)
[2018-05-06 01:03] VITALS: BP 125/81
[2018-05-06] MEDS ORDERED: ONDANSETRON ODT 4 MG PO PRN (01:30)
[2018-05-06] MEDS ORDERED: ACETAMINOPHEN 325 MG TABLET PO PRN (01:30)
[2018-05-06] MEDS ORDERED: BISACODYL 10 MG SUPP PR PRN (01:30)
[2018-05-06] MEDS ORDERED: LABETALOL 5MG/ML, 20ML IVPush PRN (01:30)
[2018-05-06] MEDS ORDERED: DOCUSATE 100 MG CAPSULE PO PRN (01:30)
[2018-05-06] MEDS: GABAPENTIN 100 MG CAPSULE PO SCH ×4 (01:30→21:23)
[2018-05-06] MEDS ORDERED: hydrALAzine 20 MG/ML, 1ML IVPush PRN (01:30)
[2018-05-06] MEDS ORDERED: HYDROcodone/APAP 10/325 MG TABLET PO PRN (01:30)
[2018-05-06] MEDS ORDERED: POLYETHYLENE GLYCOL 17 GM PACKET PO PRN (01:30)
[2018-05-06] MEDS: NICOTINE 7 MG/24 HR PATCH.TD24 TD SCH (01:30)
[2018-05-06] MEDS ORDERED: PROMETHAZINE 25 MG/ML, 1ML IM PRN (01:30)
[2018-05-06] MEDS ORDERED: morphine SULFATE 10 MG/ML, 1ML IVPush PRN (01:30)
[2018-05-06] MEDS ORDERED: ONDANSETRON 2MG/ML, 2ML IVPush PRN (01:30)
[2018-05-06 01:53] LABS: HEMOGLOBIN A1C 11.3 % (4.2-6.3)
[2018-05-06 02:11] LABS: THYROID STIMULATING HORMONE 2.33 mIU/L (0.358-3.740)
[2018-05-06] MEDS: OXYcodone IR 5MG TABLET PO PRN ×5 (02:21→21:23)
[2018-05-06] MEDS: ACETAMINOPHEN 500 MG TABLET PO SCH ×2 (03:16→11:58)
[2018-05-06] MEDS: HEPARIN 5,000 UNITS/ML, 1ML SQ SCH ×3 (03:17→16:56)
[2018-05-06] MEDS: INSULIN LISPRO 100 UNITS/ML, PEN SQ-INSULIN SCH ×5 (03:17→21:24)
[2018-05-06] MEDS: SODIUM CHLORIDE 0.9% 1,000 ML IV SCH ×2 (03:18→18:18)
[2018-05-06 05:30] LABS: CHLORIDE 104 mmol/L (98-107)
[2018-05-06 05:35] LABS: BASOPHILS # (AUTO) 0.04 x10^3/uL (0-0.1); BASOPHILS % (AUTO) 1 % (0-1); EOSINOPHILS # (AUTO) 0.24 x10^3/uL (0-0.4); EOSINOPHILS % (AUTO) 4 % (1-7); LYMPHOCYTES # (AUTO) 2.56 x10^3/uL (1-3.4); LYMPHOCYTES % (AUTO) 41 % (22-44); MD NO; MEAN CORPUSCULAR HEMOGLOBIN 33.8 pg (27.5-34.5); MEAN CORPUSCULAR HGB CONC 34.4 g/dL (33.2-36.2); MEAN PLATELET VOLUME 8.7 fL (7.4-10.4); MONOCYTES # (AUTO) 0.59 x10^3/uL (0.2-0.8); MONOCYTES % (AUTO) 10 % (2-9); NEUTROPHILS # (AUTO) 2.75 x10^3/uL (1.8-6.8); NEUTROPHILS % (AUTO) 45 % (42-75); PLATELET COUNT 206 x10^3/uL (130-400); RED BLOOD COUNT 4.26 x10^6/uL (4.38-5.82); RED CELL DISTRIBUTION WIDTH 13.7 % (9.4-14.8)
[2018-05-06 05:41] LABS: ALANINE AMINOTRANSFERASE 55 U/L (12-78); ALBUMIN 3.4 g/dL (3.4-5.0); ALKALINE PHOSPHATASE 68 U/L (45-117); ANION GAP 11 mmol/L (5-15); BILIRUBIN,TOTAL 0.5 mg/dL (0.2-1.0); CALCIUM 7.9 mg/dL (8.5-10.1); CHOL/HDL RATIO 5.4; CHOLESTEROL, TOTAL 183 mg/dL (140-239); CREATININE 0.73 mg/dL (0.7-1.3); HDL CHOL % 19 % (26-37); HDL CHOLESTEROL (DIRECT) 34 mg/dL (40-60); LDL CHOLESTEROL,CALCULATED 71 mg/dL (54-169); LDL/HDL RATIO 2.1 (0.5-3.0); TOTAL PROTEIN 6.9 g/dL (6.4-8.2); TRIGLYCERIDES 391 mg/dL (50-200); TROPONIN I < 0.015 ng/mL (0.000-0.045); VLDL CHOLESTEROL 78 mg/dL (0-25)
[2018-05-06 06:50] VITALS: BP 123/77
[2018-05-06] MEDS ORDERED: ERGOCALCIFEROL 50,000 UNIT CAPSULE PO SCH (08:30)
[2018-05-06] MEDS: PANTOPROZOLE 40MG TABLET PO SCH (08:59)
[2018-05-06] MEDS: METOPROLOL TARTRATE 25 MG TABLET PO SCH (08:59)
[2018-05-06] MEDS ORDERED: REGADENOSON 0.4 MG/5 ML SYRINGE ONE (09:35)
[2018-05-06 11:30] LABS: TROPONIN I < 0.015 ng/mL (0.000-0.045)
[2018-05-06] MEDS: FLUOXETINE 10 MG CAP PO SCH (11:58)
[2018-05-06] MEDS ORDERED: LORazepam 2 MG/ML, 1ML IVPush ONE (13:00)
[2018-05-06 13:02] VITALS: BP 109/77
[2018-05-06] MEDS ORDERED: GADOBUTROL 10 MMOL/10 ML PFS ONE (13:54)
[2018-05-06] MEDS: INSULIN GLARGINE 100 UNITS/ML, PEN SQ-INSULIN ONE ×2 (14:15→14:17)
[2018-05-06 17:32] LABS: MICROSCOPIC NOT IND
[2018-05-06 17:33] LABS: CULTURE INDICATED? NO
[2018-05-06 19:01] VITALS: BP 126/83
[2018-05-06] MEDS ORDERED: INSULIN GLARGINE 100 UNITS/ML, PEN SQ-INSULIN SCH ×2 (21:00)
[2018-05-06] MEDS ORDERED: QUETIAPINE 100MG TABLET PO SCH (21:00)
[2018-05-06] MEDS ORDERED: SIMVASTATIN 40 MG TABLET PO SCH (21:00)
[2018-05-07 01:28] VITALS: BP 132/86
[2018-05-07] MEDS: NICOTINE 7 MG/24 HR PATCH.TD24 TD SCH (01:30)
[2018-05-07] MEDS: ACETAMINOPHEN 500 MG TABLET PO SCH ×2 (01:31→13:46)
[2018-05-07] MEDS: HEPARIN 5,000 UNITS/ML, 1ML SQ SCH ×2 (01:32→08:29)
[2018-05-07] MEDS: OXYcodone IR 5MG TABLET PO PRN ×2 (01:32→06:25)
[2018-05-07 07:29] VITALS: BP 122/83
[2018-05-07] MEDS: METOPROLOL TARTRATE 25 MG TABLET PO SCH (08:29)
[2018-05-07] MEDS: FLUOXETINE 10 MG CAP PO SCH (08:29)
[2018-05-07] MEDS: INSULIN LISPRO 100 UNITS/ML, PEN SQ-INSULIN SCH ×2 (08:29→11:00)
[2018-05-07] MEDS: GABAPENTIN 100 MG CAPSULE PO SCH ×2 (08:29→15:49)
[2018-05-07] MEDS: PANTOPROZOLE 40MG TABLET PO SCH (08:29)
[2018-05-07] MEDS ORDERED: GABA300C10 PO (12:27)
[2018-05-07] MEDS ORDERED: CYCL5TAB PO (12:27)
[2018-05-07] MEDS ORDERED: ACET500T71 PO (12:27)
[2018-05-07] MEDS ORDERED: ERGO500017 PO (12:27)
[2018-05-07 15:08] VITALS: BP 133/85
== END 2018-05-07 16:50 | disposition home or self-care (01) ==
LOC: ED 23:59 → INTOOBSV 05-06 00:18 → EDIP 05-06 00:18 → 5SO 05-06 02:18 → DCLOUNGE 05-07 16:35
PROVIDERS: ADMIT Internal Medicine; ATTEND Internal Medicine
DX: R07.89 Other chest pain (principal); E11.65 Type 2 diabetes mellitus with hyperglycemia; E78.00 Pure hypercholesterolemia, unspecified; E55.9 Vitamin D deficiency, unspecified; E78.5 Hyperlipidemia, unspecified; F17.210 Nicotine dependence, cigarettes, uncomplicated; F32.9 Major depressive disorder, single episode, unspecified; F41.1 Generalized anxiety disorder; I10 Essential (primary) hypertension; K21.9 Gastro-esophageal reflux disease without esophagitis; Z79.4 Long term (current) use of insulin; Z82.49 Family history of ischemic heart disease and other diseases of the circulatory system; M50.30 Other cervical disc degeneration, unspecified cervical region
CPT/HCPCS: 36415; 71045; 72156; 78452; 80053; 80061; 81003; 82306; 82607; 82962; 83036; 83690; 83735; 83880; 84439; 84443; 84484; 85025; 85610; 85730; 93005; 93017; 96361; 96372; 96374; 96375; 96376; 97162; 97165; 99285; A9502; A9585; C9113; C9898; G0378; G8978; G8979; G8980; J1644; J1815; J2060; J2270; J2785; J7030

== ENCOUNTER 2018-06-10 19:08 | Observation (INO) | payer MEDICAID ==
[~2018-06-10] VITALS: Ht 170.2 cm; Wt 100.0 kg
[~2018-06-10 19:08] MED LIST changes: +ACET500T71 PO; +CYCL5TAB PO; +ERGO500017 PO
[2018-06-10 19:51] LABS: BASOPHILS # (AUTO) 0.04 x10^3/uL (0-0.1); BASOPHILS % (AUTO) 1 % (0-1); EOSINOPHILS # (AUTO) 0.15 x10^3/uL (0-0.4); EOSINOPHILS % (AUTO) 2 % (1-7); LYMPHOCYTES # (AUTO) 3.41 x10^3/uL (1-3.4); LYMPHOCYTES % (AUTO) 39 % (22-44); MD NO; MEAN CORPUSCULAR HEMOGLOBIN 34.3 pg (27.5-34.5); MEAN CORPUSCULAR HGB CONC 34.3 g/dL (33.2-36.2); MEAN CORPUSCULAR VOLUME 99.9 fL (81-97); MEAN PLATELET VOLUME 8.1 fL (7.4-10.4); MONOCYTES # (AUTO) 0.57 x10^3/uL (0.2-0.8); MONOCYTES % (AUTO) 6 % (2-9); NEUTROPHILS # (AUTO) 4.67 x10^3/uL (1.8-6.8); NEUTROPHILS % (AUTO) 53 % (42-75); PLATELET COUNT 254 x10^3/uL (130-400); RED BLOOD COUNT 4.83 x10^6/uL (4.38-5.82); RED CELL DISTRIBUTION WIDTH 13.6 % (9.4-14.8)
[2018-06-10 19:58] LABS: ALANINE AMINOTRANSFERASE 86 U/L (12-78); ALBUMIN 4.1 g/dL (3.4-5.0); ANION GAP 16 mmol/L (5-15); CALCIUM 8.8 mg/dL (8.5-10.1); CHLORIDE 98 mmol/L (98-107); CREATININE 0.91 mg/dL (0.7-1.3); SALICYLATE LEVEL 3.3 mg/dL (2.8-20.0)
[2018-06-10 20:00] LABS: ALKALINE PHOSPHATASE 82 U/L (45-117); BILIRUBIN,TOTAL 0.6 mg/dL (0.2-1.0); TOTAL PROTEIN 8.3 g/dL (6.4-8.2)
[2018-06-10] MEDS ORDERED: SODIUM CHLORIDE 0.9% 1,000ML IVBOLUS ONE (20:00)
[2018-06-10 20:04] LABS: ACETAMINOPHEN < 2 mcg/mL (10-30)
[2018-06-10 20:26] LABS: AMPHETAMINE SCREEN, URINE Negative (Negative); BARBITURATE SCREEN, URINE Negative (Negative); BENZODIAZEPINE SCREEN, URINE Negative (Negative); CANNABINOID SCREEN, URINE Positive (Negative); COCAINE SCREEN, URINE Negative (Negative); METHADONE SCREEN, URINE Negative (Negative); OPIATE SCREEN, URINE Negative (Negative)
[2018-06-11] MEDS ORDERED: TEMPLATE NON-FORMULARY MED. (Gabapentin** 300 MG) PO SCH (02:30)
[2018-06-11] MEDS ORDERED: ERGOCALCIFEROL 50,000 UNIT CAPSULE PO SCH ×2 (02:30→09:00)
[2018-06-11] MEDS ORDERED: INSULIN GLARGINE 100 UNITS/ML, PEN SQ-INSULIN ONE (03:00)
[2018-06-11] MEDS ORDERED: POLYETHYLENE GLYCOL 17 GM PACKET PO PRN (03:00)
[2018-06-11] MEDS ORDERED: BISACODYL 10 MG SUPP PR PRN (03:00)
[2018-06-11] MEDS ORDERED: OXYcodone IR 5MG TABLET PO PRN (03:00)
[2018-06-11] MEDS ORDERED: DOCUSATE 100 MG CAPSULE PO PRN (03:00)
[2018-06-11] MEDS ORDERED: ONDANSETRON ODT 4 MG PO PRN (03:00)
[2018-06-11 03:16] LABS: FREE T4 (FREE THYROXINE) 0.9 ng/dL (0.76-1.46); THYROID STIMULATING HORMONE 0.788 mIU/L (0.358-3.740)
[2018-06-11] MEDS: INSULIN LISPRO 100 UNITS/ML, PEN SQ-INSULIN SCH ×2 (07:00→12:34)
[2018-06-11] MEDS ORDERED: PANTOPROZOLE 40MG TABLET PO SCH (07:30)
[2018-06-11] MEDS ORDERED: FLUOXETINE 10 MG CAP PO SCH (09:00)
[2018-06-11] MEDS ORDERED: METOPROLOL TARTRATE 25 MG TABLET PO SCH (09:00)
[2018-06-11] MEDS ORDERED: metFORMIN XR 500 MG TAB.ER.24H PO SCH (09:00)
[2018-06-11] MEDS ORDERED: TEMAZEPAM 15 MG CAPSULE PO PRN (10:30)
[2018-06-11 11:06] VITALS: BP 171/91
[2018-06-11] MEDS ORDERED: GABAPENTIN 300 MG CAPSULE PO SCH (11:14)
[2018-06-11] MEDS ORDERED: ALBUTEROL SULFATE 2.5 MG/3 ML ONE (13:24)
[2018-06-11] MEDS ORDERED: ALBUTEROL/IPRATROPIUM 2.5MG/0.5MG, 3 ML ONE (13:29)
[2018-06-11] MEDS ORDERED: ALBUTEROL/IPRATROPIUM 2.5MG/0.5MG, 3 ML NPPB ONE (14:00)
[2018-06-11] MEDS ORDERED: QUETIAPINE 100MG TABLET PO SCH (21:00)
[2018-06-11] MEDS ORDERED: SIMVASTATIN 40 MG TABLET PO SCH (21:00)
== END 2018-06-11 13:50 ==
LOC: ED 23:46 → EDIP 06-11 02:14 → 2N 06-11 11:00
PROVIDERS: ADMIT Internal Medicine; ATTEND Internal Medicine
DX: R45.851 Suicidal ideations (principal); F33.2 Major depressive disorder, recurrent severe without psychotic features; E11.65 Type 2 diabetes mellitus with hyperglycemia; E55.9 Vitamin D deficiency, unspecified; E78.00 Pure hypercholesterolemia, unspecified; E78.5 Hyperlipidemia, unspecified; F10.220 Alcohol dependence with intoxication, uncomplicated; F12.10 Cannabis abuse, uncomplicated; F17.210 Nicotine dependence, cigarettes, uncomplicated; F41.1 Generalized anxiety disorder; I10 Essential (primary) hypertension; K21.9 Gastro-esophageal reflux disease without esophagitis; Z82.49 Family history of ischemic heart disease and other diseases of the circulatory system
CPT/HCPCS: 36415; 80053; 80307; 80329; 82607; 82962; 84439; 84443; 85025; 94640; 96360; 96372; 99285; G0378; J1815; J7030; J7620; G0480

== ENCOUNTER 2018-06-24 16:13 | Inpatient (IN) | payer MEDICAID ==
[~2018-06-24] VITALS: Ht 170.2 cm; Wt 100.8 kg
[2018-06-24 16:59] LABS: BASOPHILS % (AUTO) 0 % (0-1); EOSINOPHILS % (AUTO) 0 % (1-7); LYMPHOCYTES % (AUTO) 6 % (22-44); MD NO; MEAN CORPUSCULAR HEMOGLOBIN 34.1 pg (27.5-34.5); MEAN CORPUSCULAR HGB CONC 34.4 g/dL (33.2-36.2); MEAN PLATELET VOLUME 8.2 fL (7.4-10.4); MONOCYTES # (AUTO) 0.45 x10^3/uL (0.2-0.8); MONOCYTES % (AUTO) 3 % (2-9); NEUTROPHILS # (AUTO) 14.28 x10^3/uL (1.8-6.8); NEUTROPHILS % (AUTO) 91 % (42-75); PLATELET COUNT 239 x10^3/uL (130-400); RED BLOOD COUNT 4.81 x10^6/uL (4.38-5.82); RED CELL DISTRIBUTION WIDTH 13.5 % (9.4-14.8)
[2018-06-24 17:09] LABS: ALANINE AMINOTRANSFERASE 81 U/L (12-78); ALBUMIN 3.9 g/dL (3.4-5.0); ANION GAP 8 mmol/L (5-15); CALCIUM 8.2 mg/dL (8.5-10.1); CHLORIDE 100 mmol/L (98-107); CREATININE 1.07 mg/dL (0.7-1.3)
[2018-06-24 17:11] LABS: ALKALINE PHOSPHATASE 98 U/L (45-117); BILIRUBIN,TOTAL 0.9 mg/dL (0.2-1.0); TOTAL PROTEIN 8.2 g/dL (6.4-8.2)
[2018-06-24] MEDS ORDERED: MORPHINE SULFATE 4 MG/ML, 1ML ONE ×3 (17:47→19:42)
[2018-06-24] MEDS ORDERED: ONDANSETRON ODT 4 MG ONE (17:47)
[2018-06-24] MEDS: MORPHINE SULFATE 4 MG/ML, 1ML IVPush PRN ×2 (17:48→18:26)
[2018-06-24] MEDS ORDERED: SODIUM CHLORIDE FLUSH 10ML SYR IVF ONE ×2 (18:00→19:30)
[2018-06-24] MEDS ORDERED: ONDANSETRON ODT 4 MG PO ONE (18:00)
[2018-06-24 18:02] LABS: MICROSCOPIC AUTO
[2018-06-24 18:03] LABS: CULTURE INDICATED? NO
[2018-06-24] MEDS ORDERED: OMNIPAQUE 350 MG/ML, 100ML BOTTLE ONE (18:03)
[2018-06-24] MEDS ORDERED: SODIUM CHLORIDE 0.9% 1,000ML IVBOLUS ONE (19:30)
[2018-06-24] MEDS ORDERED: MORPHINE SULFATE 4 MG/ML, 1ML IVPush PRN (19:30)
[2018-06-24] MEDS ORDERED: TRAZ-137 PO (20:33)
[2018-06-24] MEDS ORDERED: INSULIN LISPRO 100 UNITS/ML, PEN SQ-INSULIN SCH (21:00)
[2018-06-24] MEDS ORDERED: SIMVASTATIN 10 MG TABLET PO SCH (21:00)
[2018-06-24] MEDS ORDERED: POLYETHYLENE GLYCOL 17 GM PACKET PO PRN (21:00)
[2018-06-24] MEDS ORDERED: hydrALAzine 20 MG/ML, 1ML IVPush PRN (21:00)
[2018-06-24] MEDS ORDERED: metFORMIN 500 MG TABLET PO SCH (21:00)
[2018-06-24] MEDS ORDERED: LABETALOL 5MG/ML, 20ML IVPush PRN (21:00)
[2018-06-24] MEDS ORDERED: METOCLOPRAMIDE 5 MG/ML, 2ML IVPush ONE (21:00)
[2018-06-24] MEDS ORDERED: ACETAMINOPHEN 325 MG TABLET PO PRN (21:00)
[2018-06-24] MEDS ORDERED: PROMETHAZINE 25 MG/ML, 1ML IM PRN (21:00)
[2018-06-24] MEDS ORDERED: DOCUSATE 100 MG CAPSULE PO PRN (21:00)
[2018-06-24] MEDS ORDERED: ONDANSETRON 2MG/ML, 2ML IVPush PRN (21:00)
[2018-06-24] MEDS ORDERED: BISACODYL 10 MG SUPP PR PRN (21:00)
[2018-06-24] MEDS ORDERED: morphine SULFATE 10 MG/ML, 1ML IVPush PRN (21:00)
[2018-06-24] MEDS ORDERED: ONDANSETRON ODT 4 MG PO PRN (21:00)
[2018-06-24] MEDS ORDERED: INSULIN GLARGINE 100 UNITS/ML, PEN SQ-INSULIN SCH (21:00)
[2018-06-24] MEDS ORDERED: ERGOCALCIFEROL 50,000 UNIT CAPSULE PO SCH (21:00)
[2018-06-24 21:26] LABS: HEMOGLOBIN A1C 11.6 % (4.2-6.3)
[2018-06-24] MEDS: SODIUM CHLORIDE 0.9% 1,000 ML IV SCH (22:23)
[2018-06-24] MEDS: QUETIAPINE 100MG TABLET PO SCH (22:57)
[2018-06-24] MEDS: SUCRALFATE 1 GM/10 ML UDC PO SCH (22:58)
[2018-06-24] MEDS: TRAZODONE 100MG TABLET PO SCH (22:58)
[2018-06-24] MEDS: GABAPENTIN 300 MG CAPSULE PO SCH (22:58)
[2018-06-24] MEDS: PANTOPRAZOLE 40 MG IV IVPush SCH (22:58)
[2018-06-24] MEDS: HEPARIN 5,000 UNITS/ML, 1ML SQ SCH (22:59)
[2018-06-24] MEDS: INSULIN LISPRO 100 UNITS/ML, PEN SQ-INSULIN SCH (23:16)
[2018-06-24] MEDS ORDERED: SIMVASTATIN 40 MG TABLET ONE (23:19)
[2018-06-25 00:55] VITALS: BP 107/73
[2018-06-25] MEDS: SIMVASTATIN 40 MG TABLET PO SCH ×2 (01:11→20:03)
[2018-06-25 02:40] VITALS: BP 109/72
[2018-06-25 04:39] LABS: ALANINE AMINOTRANSFERASE 70 U/L (12-78); ANION GAP 7 mmol/L (5-15); CALCIUM 7.4 mg/dL (8.5-10.1); CHLORIDE 104 mmol/L (98-107); CREATININE 0.68 mg/dL (0.7-1.3)
[2018-06-25 04:40] LABS: BASOPHILS # (AUTO) 0.05 x10^3/uL (0-0.1); BASOPHILS % (AUTO) 1 % (0-1); EOSINOPHILS % (AUTO) 2 % (1-7); LYMPHOCYTES # (AUTO) 1.35 x10^3/uL (1-3.4); LYMPHOCYTES % (AUTO) 22 % (22-44); MD NO; MEAN CORPUSCULAR HEMOGLOBIN 34.1 pg (27.5-34.5); MEAN CORPUSCULAR HGB CONC 34.2 g/dL (33.2-36.2); MEAN CORPUSCULAR VOLUME 99.8 fL (81-97); MEAN PLATELET VOLUME 8.4 fL (7.4-10.4); MONOCYTES # (AUTO) 0.42 x10^3/uL (0.2-0.8); MONOCYTES % (AUTO) 7 % (2-9); NEUTROPHILS # (AUTO) 4.33 x10^3/uL (1.8-6.8); NEUTROPHILS % (AUTO) 69 % (42-75); PLATELET COUNT 194 x10^3/uL (130-400); RED BLOOD COUNT 4.13 x10^6/uL (4.38-5.82); RED CELL DISTRIBUTION WIDTH 13.4 % (9.4-14.8)
[2018-06-25 04:41] LABS: ALKALINE PHOSPHATASE 63 U/L (45-117); BILIRUBIN,TOTAL 0.7 mg/dL (0.2-1.0); TOTAL PROTEIN 6.5 g/dL (6.4-8.2)
[2018-06-25] MEDS: SUCRALFATE 1 GM/10 ML UDC PO SCH ×4 (06:20→20:03)
[2018-06-25] MEDS: HEPARIN 5,000 UNITS/ML, 1ML SQ SCH ×3 (06:20→22:27)
[2018-06-25] MEDS: SODIUM CHLORIDE 0.9% 1,000 ML IV SCH ×2 (06:20→19:45)
[2018-06-25 07:46] VITALS: BP 119/84
[2018-06-25] MEDS: GABAPENTIN 300 MG CAPSULE PO SCH ×3 (10:56→20:03)
[2018-06-25] MEDS: FLUOXETINE 10 MG CAP PO SCH (10:56)
[2018-06-25] MEDS: METOPROLOL TARTRATE 25 MG TABLET PO SCH (10:56)
[2018-06-25] MEDS: PANTOPRAZOLE 40 MG IV IVPush SCH ×2 (12:25→20:02)
[2018-06-25] MEDS ORDERED: DEXTROSE 50%, 50ML SYRINGE IVPush PRN (12:30)
[2018-06-25] MEDS ORDERED: DEXTROSE 4 GM TAB.CHEW PO PRN (12:30)
[2018-06-25] MEDS ORDERED: GLUCAGON 1 MG IM PRN (12:30)
[2018-06-25] MEDS: INSULIN LISPRO 100 UNITS/ML, PEN SQ-INSULIN SCH ×2 (12:32→22:28)
[2018-06-25 15:12] VITALS: BP 119/83
[2018-06-25] MEDS: KETOROLAC 30 MG/1 ML IVPush PRN (15:37)
[2018-06-25] MEDS ORDERED: INSULIN LISPRO 100 UNITS/ML, PEN SQ-INSULIN SCH (16:00)
[2018-06-25] MEDS: METOCLOPRAMIDE 5 MG/ML, 2ML IVPush PRN (18:22)
[2018-06-25 19:18] VITALS: BP 107/69
[2018-06-25] MEDS: SODIUM CHLORIDE FLUSH 10ML SYR IVF SCH (19:45)
[2018-06-25 19:52] VITALS: BP 105/70
[2018-06-25] MEDS: QUETIAPINE 100MG TABLET PO SCH (20:03)
[2018-06-25] MEDS: TRAZODONE 100MG TABLET PO SCH (20:03)
[2018-06-26 02:20] VITALS: BP 109/76
[2018-06-26] MEDS: INSULIN LISPRO 100 UNITS/ML, PEN SQ-INSULIN SCH ×3 (03:46→17:38)
[2018-06-26] MEDS: SODIUM CHLORIDE 0.9% 1,000 ML IV SCH ×2 (05:49→18:09)
[2018-06-26 06:35] VITALS: BP 125/81
[2018-06-26] MEDS: SUCRALFATE 1 GM/10 ML UDC PO SCH ×4 (06:37→21:18)
[2018-06-26] MEDS: HEPARIN 5,000 UNITS/ML, 1ML SQ SCH ×2 (06:37→15:55)
[2018-06-26] MEDS: FLUOXETINE 10 MG CAP PO SCH (09:00)
[2018-06-26] MEDS: PANTOPRAZOLE 40 MG IV IVPush SCH ×2 (09:00→21:18)
[2018-06-26] MEDS: KETOROLAC 30 MG/1 ML IVPush PRN ×3 (09:00→22:27)
[2018-06-26] MEDS: SODIUM CHLORIDE FLUSH 10ML SYR IVF SCH ×2 (09:01→21:18)
[2018-06-26] MEDS: METOPROLOL TARTRATE 25 MG TABLET PO SCH (09:01)
[2018-06-26] MEDS: GABAPENTIN 300 MG CAPSULE PO SCH ×3 (09:01→21:18)
[2018-06-26 11:23] VITALS: BP 124/84
[2018-06-26 13:07] VITALS: BP 118/78
[2018-06-26] MEDS: METOCLOPRAMIDE 5 MG/ML, 2ML IVPush PRN ×2 (15:55→22:27)
[2018-06-26 19:00] VITALS: BP 144/88
[2018-06-26] MEDS: TRAZODONE 100MG TABLET PO SCH (21:18)
[2018-06-26] MEDS: QUETIAPINE 100MG TABLET PO SCH (21:19)
[2018-06-26] MEDS: SIMVASTATIN 40 MG TABLET PO SCH (21:19)
[2018-06-27] MEDS: HEPARIN 5,000 UNITS/ML, 1ML SQ SCH ×3 (00:07→16:00)
[2018-06-27] MEDS: INSULIN LISPRO 100 UNITS/ML, PEN SQ-INSULIN SCH ×4 (00:07→15:00)
[2018-06-27 02:40] VITALS: BP 136/85
[2018-06-27] MEDS: SODIUM CHLORIDE 0.9% 1,000 ML IV SCH (04:08)
[2018-06-27] MEDS: KETOROLAC 30 MG/1 ML IVPush PRN (04:08)
[2018-06-27] MEDS: METOCLOPRAMIDE 5 MG/ML, 2ML IVPush PRN (04:09)
[2018-06-27 07:33] VITALS: BP 144/73
[2018-06-27] MEDS: SUCRALFATE 1 GM/10 ML UDC PO SCH ×3 (07:49→16:00)
[2018-06-27] MEDS: GABAPENTIN 300 MG CAPSULE PO SCH ×2 (08:51→16:00)
[2018-06-27] MEDS: PANTOPRAZOLE 40 MG IV IVPush SCH (08:51)
[2018-06-27] MEDS: SODIUM CHLORIDE FLUSH 10ML SYR IVF SCH (08:51)
[2018-06-27] MEDS: FLUOXETINE 10 MG CAP PO SCH (08:51)
[2018-06-27] MEDS: METOPROLOL TARTRATE 25 MG TABLET PO SCH (08:52)
[2018-06-27] MEDS ORDERED: INSULIN NPH HUMAN 100 UNIT/ML, 3ML VIAL SQ-INSULIN SCH (09:30)
[2018-06-27 13:13] VITALS: BP 127/66
[2018-06-27] MEDS ORDERED: DOCU-131 PO (14:36)
[2018-06-27] MEDS ORDERED: SUCR1TAB33 PO (14:36)
[2018-06-27] MEDS ORDERED: METO5TAB2 PO (14:36)
[2018-06-27] MEDS ORDERED: PANT40TA5 PO (14:36)
[2018-06-27 15:41] VITALS: BP 152/91
== END 2018-06-27 16:00 | disposition home or self-care (01) | DRG 74 ==
LOC: ED 18:07 → EDIP 20:17 → 3NW 21:24 → DCLOUNGE 06-27 15:41
PROVIDERS: ADMIT Internal Medicine; ATTEND Internal Medicine
DX: E11.43 Type 2 diabetes mellitus with diabetic autonomic (poly)neuropathy (principal); K31.1 Adult hypertrophic pyloric stenosis; F11.20 Opioid dependence, uncomplicated; K56.609 Unspecified intestinal obstruction, unspecified as to partial versus complete obstruction; E11.65 Type 2 diabetes mellitus with hyperglycemia; E55.9 Vitamin D deficiency, unspecified; E78.00 Pure hypercholesterolemia, unspecified; E78.5 Hyperlipidemia, unspecified; E86.0 Dehydration; F17.210 Nicotine dependence, cigarettes, uncomplicated; F32.9 Major depressive disorder, single episode, unspecified; G89.29 Other chronic pain; I10 Essential (primary) hypertension; K21.9 Gastro-esophageal reflux disease without esophagitis; Z79.4 Long term (current) use of insulin; Z82.49 Family history of ischemic heart disease and other diseases of the circulatory system; Z90.49 Acquired absence of other specified parts of digestive tract; K31.84 Gastroparesis; Z88.6 Allergy status to analgesic agent; Z88.8 Allergy status to other drugs, medicaments and biological substances
CPT/HCPCS: 36415; 74022; 74177; 74245; 78264; 80053; 81001; 82962; 83036; 83605; 83690; 85025; 96374; 96376; G0378; J1644; J1815; J1885; Q0162; Q9967; A9541; C9113; C9898; J2765; J7030

== ENCOUNTER 2018-10-22 14:07 | Emergency (ER) | payer MEDICAID ==
[~2018-10-22] VITALS: Ht 170.2 cm; Wt 95.1 kg
[~2018-10-22 14:07] MED LIST changes: +DOCU-131 PO; +METO5TAB2 PO; +SIMV5TAB14 PO; -SIMV5TAB5 PO
[2018-10-22 14:26] VITALS: BP 163/106
[2018-10-22] MEDS ORDERED: CEFTRIAXONE 250 MG IM ONE (14:30)
[2018-10-22] MEDS ORDERED: AZITHROMYCIN 250 MG TABLET PO ONE (14:30)
[2018-10-22] MEDS ORDERED: AZITHROMYCIN 500 MG TABLET ONE (15:00)
[2018-10-22] MEDS ORDERED: CEFTRIAXONE 250 MG ONE (15:01)
[2018-10-22 15:20] LABS: MICROSCOPIC AUTO
[2018-10-22 15:22] LABS: CULTURE INDICATED? NO
== END 2018-10-22 15:38 | disposition home or self-care (01) ==
LOC: ED 15:26
DX: B37.42 Candidal balanitis (principal); N34.2 Other urethritis; E78.00 Pure hypercholesterolemia, unspecified; I10 Essential (primary) hypertension; E11.9 Type 2 diabetes mellitus without complications; F32.9 Major depressive disorder, single episode, unspecified; F17.200 Nicotine dependence, unspecified, uncomplicated
CPT/HCPCS: 81001; 87491; 87591; 96372; 99283; J0696

== ENCOUNTER 2019-09-25 14:03 | Emergency (ER) | payer MEDICAID ==
[~2019-09-25] VITALS: Ht 170.2 cm; Wt 90.0 kg
[~2019-09-25 14:03] MED LIST changes: +ACET500T64 PO; -ACET500T71 PO; +ALBU90AE INH; -HYDR-3307 PO; +HYDR-36 PO; +INSU100I13 SQ-INSULIN; +INSU100I34 SQ; +LISI-420 PO
[2019-09-25 14:21] VITALS: BP 139/90
[2019-09-25] MEDS ORDERED: ACETAMINOPHEN 500 MG TABLET ONE (15:18)
[2019-09-25] MEDS ORDERED: ACETAMINOPHEN 500 MG TABLET PO ONE (15:30)
== END 2019-09-25 15:25 ==
LOC: ED 15:15
DX: S20.211A Contusion of right front wall of thorax, initial encounter (principal); I10 Essential (primary) hypertension; E11.9 Type 2 diabetes mellitus without complications; E78.00 Pure hypercholesterolemia, unspecified; E78.5 Hyperlipidemia, unspecified; F17.210 Nicotine dependence, cigarettes, uncomplicated; X58.XXXA Exposure to other specified factors, initial encounter; Y93.89 Activity, other specified; Y92.009 Unspecified place in unspecified non-institutional (private) residence as the place of occurrence of the external cause; Y99.8 Other external cause status
CPT/HCPCS: 99283

== ENCOUNTER 2020-01-05 10:05 | Inpatient (IN) | payer MEDICAID ==
[~2020-01-05] VITALS: Ht 170.2 cm; Wt 98.2 kg
[~2020-01-05 10:05] MED LIST changes: +SIMV10TA18 PO; -SIMV10TA3 PO; -TRAZ-137 PO; +TRAZ-175 PO
[2020-01-05] MEDS ORDERED: SODIUM CHLORIDE 0.9% 1,000ML IVBOLUS ONE (10:30)
[2020-01-05] MEDS ORDERED: SODIUM CHLORIDE FLUSH 10ML SYR IVF ONE (10:30)
--- NOTE | 2020-01-05 10:33 | NUR ---
PT C/O MULTIPLE THINGS: EPIGAST PAIN OVER HERNIA X4 DAYS. WARM TO TOUCH. 5/10 AFTER 100 FENT BY EMS. GIVEN ZOFRAN. NO VOMITING.NO BM X2 DAYS. HX SBO. ALSO FSBS 326, NONCOMP W/ INSULIN, HAS NOT TAKEN MEDS IN MONTHS, GOES TO [facility]. STS COUGHED UP DARK RED BLOOD TODAY. HX ETOH ABUSE, STILL DRINKS. PIV BY EMS. UA SENT. JULIA WAS IN ROOM. PLAN FOR CT ABD/CXR IN ROOM.
[2020-01-05 10:46] LABS: MICROSCOPIC NOT IND
[2020-01-05 10:48] LABS: CULTURE INDICATED? NO
--- NOTE | 2020-01-05 10:52 | NUR ---
LAB AT BEDSIDE. PT ASKING FOR PAIN MEDS, WILL NOTIFY MD. GASTELUM
[2020-01-05 11:05] LABS: BASOPHILS # (AUTO) 0.06 x10^3/uL (0-0.1); BASOPHILS % (AUTO) 1 % (0-1); EOSINOPHILS # (AUTO) 0.21 x10^3/uL (0-0.4); EOSINOPHILS % (AUTO) 2 % (1-7); LYMPHOCYTES # (AUTO) 2.38 x10^3/uL (1-3.4); LYMPHOCYTES % (AUTO) 23 % (22-44); MD NO; MEAN CORPUSCULAR HEMOGLOBIN 36.8 pg (27.5-34.5); MEAN CORPUSCULAR HGB CONC 33.5 g/dL (33.2-36.2); MEAN CORPUSCULAR VOLUME 109.8 fL (81-97); MEAN PLATELET VOLUME 8.3 fL (7.4-10.4); MONOCYTES # (AUTO) 0.99 x10^3/uL (0.2-0.8); MONOCYTES % (AUTO) 10 % (2-9); NEUTROPHILS # (AUTO) 6.75 x10^3/uL (1.8-6.8); NEUTROPHILS % (AUTO) 65 % (42-75); PLATELET COUNT 119 x10^3/uL (130-400); RED BLOOD COUNT 3.88 x10^6/uL (4.38-5.82); RED CELL DISTRIBUTION WIDTH 14.2 % (9.4-14.8)
[2020-01-05] MEDS ORDERED: ONDANSETRON 2MG/ML, 2ML ONE ×2 (11:13→11:19)
[2020-01-05] MEDS ORDERED: MORPHINE SULFATE 4 MG/ML, 1ML ONE ×3 (11:13→13:15)
[2020-01-05 11:17] LABS: ALANINE AMINOTRANSFERASE 34 U/L (12-78); ALBUMIN 2.5 g/dL (3.4-5.0); ANION GAP 5 mmol/L (5-15); CALCIUM 7.7 mg/dL (8.5-10.1); CHLORIDE 105 mmol/L (98-107); CREATININE 0.69 mg/dL (0.7-1.3)
[2020-01-05 11:19] LABS: ALKALINE PHOSPHATASE 177 U/L (45-117); BILIRUBIN,TOTAL 1.2 mg/dL (0.2-1.0); TOTAL PROTEIN 7.5 g/dL (6.4-8.2)
[2020-01-05 11:20] LABS: INTERNATIONAL NORMALIZED RATIO 1.47 (0.93-1.1); PROTHROMBIN TIME 15.6 Seconds (9.6-11.5)
[2020-01-05] MEDS: MORPHINE SULFATE 4 MG/ML, 1ML IVPush PRN ×2 (11:22→13:17)
[2020-01-05] MEDS ORDERED: ONDANSETRON 2MG/ML, 2ML IVPush ONE (11:30)
--- NOTE | 2020-01-05 11:35 | NUR ---
PT TO CT W TECH
[2020-01-05] MEDS ORDERED: OMNIPAQUE 350 MG/ML, 100ML BOTTLE ONE (11:51)
--- NOTE | 2020-01-05 12:03 | NUR ---
BACK FROM CT. NAD.
--- NOTE | 2020-01-05 12:24 | NUR ---
RECHECK. REPOR TO JIMMY Reyes RN.
[2020-01-05] MEDS ORDERED: morphine SULFATE 10 MG/ML, 1ML ONE (13:13)
--- NOTE | 2020-01-05 13:18 | NUR ---
Pt medicated per emar.
[2020-01-05] MEDS ORDERED: LORazepam 2 MG/ML, 1ML IVPush PRN (13:30)
[2020-01-05] MEDS ORDERED: SODIUM CHLORIDE 0.9% 1,000 ML IV ONE (13:41)
--- NOTE | 2020-01-05 13:49 | NUR ---
Pt assisted to [facility] [place].
[2020-01-05] MEDS ORDERED: ONDANSETRON 2MG/ML, 2ML IVPush PRN (14:00)
[2020-01-05] MEDS ORDERED: SODIUM CHLORIDE FLUSH 10ML SYR IVF PRN (14:00)
[2020-01-05] MEDS ORDERED: MORPHINE SULFATE 4 MG/ML, 1ML IVPush PRN (14:00)
--- NOTE | 2020-01-05 14:14 | NUR ---
Dr. Montaño to bedside.
[2020-01-05] MEDS ORDERED: FOLIC ACID 5 MG/ML IM ONE (14:30)
[2020-01-05] MEDS ORDERED: DEXTROSE 4 GM TAB.CHEW PO PRN (14:30)
[2020-01-05] MEDS ORDERED: DOCUSATE 100 MG CAPSULE PO PRN (14:30)
[2020-01-05] MEDS ORDERED: DEXTROSE 50%, 50ML SYRINGE IVPush PRN (14:30)
[2020-01-05] MEDS ORDERED: hydrALAzine 20 MG/ML, 1ML IVPush PRN (14:30)
[2020-01-05] MEDS ORDERED: LORazepam 2 MG/ML, 1ML IV PRN ×3 (14:30)
[2020-01-05] MEDS ORDERED: ACETAMINOPHEN 325 MG TABLET PO PRN (14:30)
[2020-01-05] MEDS ORDERED: HYDROmorphone 2 MG/ML, 1ML IVPush PRN (14:30)
[2020-01-05] MEDS ORDERED: LORazepam 1MG TABLET PO PRN ×4 (14:30)
[2020-01-05] MEDS ORDERED: BACLOFEN 10 MG TABLET PO PRN (14:30)
[2020-01-05] MEDS ORDERED: GLUCAGON 1 MG IM PRN (14:30)
--- NOTE | 2020-01-05 15:00 | NUR ---
Pt provided with phone in room to make phone call.
--- NOTE | 2020-01-05 15:25 | NUR ---
Unable to obtain medications from patient, Dr. Montaño informed of this and okay he will address.
[2020-01-05] MEDS: INSULIN LISPRO 100 UNITS/ML, PEN SQ-INSULIN SCH ×2 (16:00→20:29)
[2020-01-05] MEDS: SUCRALFATE 1 GM TABLET PO SCH ×2 (16:00→20:16)
[2020-01-05 16:37] VITALS: BP 131/89
[2020-01-05] MEDS: LACTATED RINGERS 1,000 ML IV SCH (17:05)
[2020-01-05] MEDS: LORazepam 2 MG/ML, 1ML IV PRN ×2 (18:47→18:53)
[2020-01-05 18:54] VITALS: BP 125/80
[2020-01-05] MEDS: SODIUM CHLORIDE FLUSH 10ML SYR IVF SCH (20:30)
[2020-01-05] MEDS: QUETIAPINE 25MG TABLET PO SCH (20:30)
[2020-01-05] MEDS: ONDANSETRON 2MG/ML, 2ML IVPush PRN (20:59)
[2020-01-05] MEDS ORDERED: INSULIN GLARGINE 100 UNITS/ML, PEN SQ-INSULIN SCH (21:00)
[2020-01-06] MEDS: LACTATED RINGERS 1,000 ML IV SCH ×3 (00:13→21:23)
[2020-01-06] MEDS: MORPHINE SULFATE 4 MG/ML, 1ML IVPush PRN ×5 (00:14→21:24)
[2020-01-06 01:35] VITALS: BP 152/92
[2020-01-06] MEDS: LORazepam 2 MG/ML, 1ML IV PRN ×3 (02:29→20:17)
[2020-01-06] MEDS: ONDANSETRON 2MG/ML, 2ML IVPush PRN (04:33)
[2020-01-06 05:36] LABS: BASOPHILS # (AUTO) 0.05 x10^3/uL (0-0.1); BASOPHILS % (AUTO) 1 % (0-1); EOSINOPHILS # (AUTO) 0.12 x10^3/uL (0-0.4); EOSINOPHILS % (AUTO) 1 % (1-7); LYMPHOCYTES # (AUTO) 1.29 x10^3/uL (1-3.4); LYMPHOCYTES % (AUTO) 14 % (22-44); MD NO; MEAN CORPUSCULAR HEMOGLOBIN 36.4 pg (27.5-34.5); MEAN CORPUSCULAR HGB CONC 33.3 g/dL (33.2-36.2); MEAN CORPUSCULAR VOLUME 109.3 fL (81-97); MEAN PLATELET VOLUME 8.7 fL (7.4-10.4); MONOCYTES % (AUTO) 9 % (2-9); NEUTROPHILS # (AUTO) 7.15 x10^3/uL (1.8-6.8); NEUTROPHILS % (AUTO) 76 % (42-75); PLATELET COUNT 104 x10^3/uL (130-400); RED BLOOD COUNT 3.78 x10^6/uL (4.38-5.82); RED CELL DISTRIBUTION WIDTH 14.5 % (9.4-14.8)
[2020-01-06 05:47] LABS: ALBUMIN 2.5 g/dL (3.4-5.0); ANION GAP 5 mmol/L (5-15); CHLORIDE 101 mmol/L (98-107)
[2020-01-06 06:12] LABS: ALANINE AMINOTRANSFERASE 31 U/L (12-78); ALKALINE PHOSPHATASE 137 U/L (45-117); BILIRUBIN,TOTAL 1.6 mg/dL (0.2-1.0); CHOL/HDL RATIO 5.3; CHOLESTEROL, TOTAL 122 mg/dL (140-239); CREATININE 0.52 mg/dL (0.7-1.3); HDL CHOL % 19 % (26-37); HDL CHOLESTEROL (DIRECT) 23 mg/dL (40-60); LDL CHOLESTEROL,CALCULATED 78 mg/dL (54-169); LDL/HDL RATIO 3.4 (0.5-3.0); TOTAL PROTEIN 7.5 g/dL (6.4-8.2); TRIGLYCERIDES 103 mg/dL (50-200); VLDL CHOLESTEROL 21 mg/dL (0-25)
[2020-01-06 06:31] LABS: FREE T4 (FREE THYROXINE) 1.05 ng/dL (0.76-1.46)
[2020-01-06 06:55] VITALS: BP 150/91
[2020-01-06] MEDS ORDERED: MAGNESIUM SULFATE PMX 4GM/100M 100 ML IV ONE (08:00)
[2020-01-06] MEDS: SUCRALFATE 1 GM TABLET PO SCH ×4 (08:24→21:24)
[2020-01-06] MEDS: FLUOXETINE 10 MG CAP PO SCH (08:24)
[2020-01-06] MEDS: INSULIN LISPRO 100 UNITS/ML, PEN SQ-INSULIN SCH ×4 (08:24→21:24)
[2020-01-06] MEDS: LEVOTHYROXINE 75 MCG TABLET PO SCH (08:33)
[2020-01-06] MEDS: ONDANSETRON ODT 4 MG PO PRN ×2 (09:42→16:52)
[2020-01-06] MEDS: SODIUM CHLORIDE FLUSH 10ML SYR IVF SCH ×2 (09:42→21:25)
[2020-01-06 12:48] VITALS: BP 145/86
[2020-01-06] MEDS: ALBUTEROL SULFATE 2.5 MG/3 ML NPPB PRN (13:30)
[2020-01-06] MEDS: HEPARIN 5,000 UNITS/ML, 1ML SQ SCH ×2 (13:45→21:24)
[2020-01-06 19:22] VITALS: BP 156/87
[2020-01-06] MEDS: QUETIAPINE 25MG TABLET PO SCH (21:24)
[2020-01-07 02:15] VITALS: BP 145/80
[2020-01-07] MEDS: LEVOTHYROXINE 75 MCG TABLET PO SCH (05:25)
[2020-01-07] MEDS: HEPARIN 5,000 UNITS/ML, 1ML SQ SCH ×3 (05:25→21:00)
[2020-01-07 05:47] LABS: ALBUMIN 2.3 g/dL (3.4-5.0); ANION GAP 6 mmol/L (5-15); CALCIUM 8.1 mg/dL (8.5-10.1); CHLORIDE 98 mmol/L (98-107)
[2020-01-07 05:51] LABS: ALANINE AMINOTRANSFERASE 25 U/L (12-78); ALKALINE PHOSPHATASE 124 U/L (45-117); BILIRUBIN,TOTAL 3.1 mg/dL (0.2-1.0); CREATININE 0.55 mg/dL (0.7-1.3); MEAN CORPUSCULAR HEMOGLOBIN 37.1 pg (27.5-34.5); MEAN CORPUSCULAR VOLUME 109.3 fL (81-97); RED BLOOD COUNT 3.76 x10^6/uL (4.38-5.82); RED CELL DISTRIBUTION WIDTH 14.1 % (9.4-14.8); TOTAL PROTEIN 6.6 g/dL (6.4-8.2)
[2020-01-07] MEDS: INSULIN LISPRO 100 UNITS/ML, PEN SQ-INSULIN SCH ×4 (07:00→20:35)
[2020-01-07 07:01] LABS: BASOPHILS # (AUTO) 0.03 x10^3/uL (0-0.1); BASOPHILS % (AUTO) 0 % (0-1); EOSINOPHILS # (AUTO) 0.15 x10^3/uL (0-0.4); EOSINOPHILS % (AUTO) 2 % (1-7); LYMPHOCYTES # (AUTO) 1.41 x10^3/uL (1-3.4); LYMPHOCYTES % (AUTO) 16 % (22-44); MD MORPH REVIEW ONLY; MEAN PLATELET VOLUME 8.4 fL (7.4-10.4); MONOCYTES # (AUTO) 0.83 x10^3/uL (0.2-0.8); MONOCYTES % (AUTO) 9 % (2-9); NEUTROPHILS # (AUTO) 6.46 x10^3/uL (1.8-6.8); NEUTROPHILS % (AUTO) 73 % (42-75); PLATELET COUNT 97 x10^3/uL (130-400)
[2020-01-07 07:02] LABS: ANISOCYTOSIS 1+
[2020-01-07 07:03] VITALS: BP 147/88
[2020-01-07 07:03] LABS: <PLATELET ESTIMATE> DECREASED; <PLT MORPHOLOGY> NORMAL PLT MORPH; POLYCHROMASIA 1+; STOMATOCYTES 1+; TARGET CELLS 1+
[2020-01-07] MEDS ORDERED: POTASSIUM CHLORIDE 40 MEQ in SODIUM CHLORIDE 0.9% 500 ML IV ONE (08:30)
[2020-01-07] MEDS: FLUOXETINE 10 MG CAP PO SCH (08:36)
[2020-01-07] MEDS: SUCRALFATE 1 GM TABLET PO SCH ×4 (08:36→20:36)
[2020-01-07] MEDS: FOLIC ACID 1 MG TABLET PO SCH (08:36)
[2020-01-07] MEDS: THIAMINE 100MG TABLET PO SCH (08:36)
[2020-01-07] MEDS: LACTATED RINGERS 1,000 ML IV SCH ×2 (08:37→19:33)
[2020-01-07] MEDS: SODIUM CHLORIDE FLUSH 10ML SYR IVF SCH ×2 (08:37→20:37)
[2020-01-07] MEDS: MORPHINE SULFATE 4 MG/ML, 1ML IVPush PRN ×3 (08:39→22:23)
[2020-01-07] MEDS: THIAMINE 100 MG in DEXTROSE 5% 50 ML IVPB SCH (08:55)
[2020-01-07 14:40] VITALS: BP 142/88
[2020-01-07] MEDS: ALBUTEROL SULFATE 2.5 MG/3 ML NPPB PRN (19:02)
[2020-01-07] MEDS: QUETIAPINE 25MG TABLET PO SCH (20:36)
[2020-01-07] MEDS: LORazepam 2 MG/ML, 1ML IV PRN (20:36)
[2020-01-07 20:44] VITALS: BP 155/93
[2020-01-08 01:51] VITALS: BP 135/82
[2020-01-08] MEDS: LACTATED RINGERS 1,000 ML IV SCH ×3 (03:42→20:00)
[2020-01-08] MEDS: MORPHINE SULFATE 4 MG/ML, 1ML IVPush PRN ×2 (05:20→20:45)
[2020-01-08] MEDS: LEVOTHYROXINE 75 MCG TABLET PO SCH (05:20)
[2020-01-08] MEDS: HEPARIN 5,000 UNITS/ML, 1ML SQ SCH ×3 (05:20→20:46)
[2020-01-08 05:49] LABS: ANION GAP 6 mmol/L (5-15); CALCIUM 8.1 mg/dL (8.5-10.1); CHLORIDE 102 mmol/L (98-107)
[2020-01-08 05:50] LABS: ALANINE AMINOTRANSFERASE 22 U/L (12-78); ALBUMIN 2.3 g/dL (3.4-5.0)
[2020-01-08 05:52] LABS: ALKALINE PHOSPHATASE 119 U/L (45-117); BILIRUBIN,TOTAL 3.2 mg/dL (0.2-1.0); TOTAL PROTEIN 6.8 g/dL (6.4-8.2)
[2020-01-08] MEDS: INSULIN LISPRO 100 UNITS/ML, PEN SQ-INSULIN SCH ×4 (07:00→21:02)
[2020-01-08] MEDS: SUCRALFATE 1 GM TABLET PO SCH ×4 (07:28→20:44)
[2020-01-08] MEDS: SODIUM CHLORIDE FLUSH 10ML SYR IVF SCH ×2 (07:30→20:45)
[2020-01-08] MEDS: FLUOXETINE 10 MG CAP PO SCH (07:54)
[2020-01-08] MEDS: LORazepam 0.5MG TABLET PO PRN (07:54)
[2020-01-08] MEDS: THIAMINE 100MG TABLET PO SCH (07:54)
[2020-01-08] MEDS: ONDANSETRON ODT 4 MG PO PRN (07:54)
[2020-01-08] MEDS: FOLIC ACID 1 MG TABLET PO SCH (07:54)
[2020-01-08] MEDS: THIAMINE 100 MG in DEXTROSE 5% 50 ML IVPB SCH (08:28)
[2020-01-08] MEDS ORDERED: MAGNESIUM SULFATE PMX 2GM/50ML 50 ML IV ONE (08:30)
[2020-01-08 11:23] VITALS: BP 162/93
[2020-01-08] MEDS: OXYcodone IR 5MG TABLET PO PRN ×3 (11:42→22:45)
[2020-01-08] MEDS: POTASSIUM CHLORIDE 20 MEQ TAB.ER.PRT PO SCH (16:16)
[2020-01-08 18:30] VITALS: BP 130/90
[2020-01-08] MEDS: QUETIAPINE 25MG TABLET PO SCH (20:44)
[2020-01-09 00:11] VITALS: BP 134/86
[2020-01-09] MEDS: LORazepam 0.5MG TABLET PO PRN (01:00)
[2020-01-09] MEDS: LACTATED RINGERS 1,000 ML IV SCH ×3 (04:12→20:00)
[2020-01-09 05:27] LABS: BASOPHILS # (AUTO) 0.03 x10^3/uL (0-0.1); BASOPHILS % (AUTO) 0 % (0-1); EOSINOPHILS # (AUTO) 0.19 x10^3/uL (0-0.4); EOSINOPHILS % (AUTO) 2 % (1-7); LYMPHOCYTES # (AUTO) 1.62 x10^3/uL (1-3.4); LYMPHOCYTES % (AUTO) 20 % (22-44); MD NO; MEAN CORPUSCULAR HEMOGLOBIN 36.8 pg (27.5-34.5); MEAN CORPUSCULAR HGB CONC 33.9 g/dL (33.2-36.2); MEAN CORPUSCULAR VOLUME 108.8 fL (81-97); MEAN PLATELET VOLUME 8.9 fL (7.4-10.4); MONOCYTES # (AUTO) 0.89 x10^3/uL (0.2-0.8); MONOCYTES % (AUTO) 11 % (2-9); NEUTROPHILS # (AUTO) 5.57 x10^3/uL (1.8-6.8); NEUTROPHILS % (AUTO) 67 % (42-75); PLATELET COUNT 115 x10^3/uL (130-400); RED BLOOD COUNT 3.75 x10^6/uL (4.38-5.82); RED CELL DISTRIBUTION WIDTH 14.4 % (9.4-14.8)
[2020-01-09 05:31] LABS: ALBUMIN 2.4 g/dL (3.4-5.0); ANION GAP 5 mmol/L (5-15); CALCIUM 8.1 mg/dL (8.5-10.1); CHLORIDE 102 mmol/L (98-107)
[2020-01-09 05:37] LABS: ALANINE AMINOTRANSFERASE 22 U/L (12-78); ALKALINE PHOSPHATASE 122 U/L (45-117); BILIRUBIN,TOTAL 2.7 mg/dL (0.2-1.0); CREATININE 0.53 mg/dL (0.7-1.3); TOTAL PROTEIN 6.9 g/dL (6.4-8.2)
[2020-01-09] MEDS: SUCRALFATE 1 GM TABLET PO SCH ×4 (06:13→21:07)
[2020-01-09] MEDS: HEPARIN 5,000 UNITS/ML, 1ML SQ SCH ×3 (06:13→22:29)
[2020-01-09] MEDS: LEVOTHYROXINE 75 MCG TABLET PO SCH (06:14)
[2020-01-09] MEDS: OXYcodone IR 5MG TABLET PO PRN ×3 (06:14→16:25)
[2020-01-09 07:16] VITALS: BP 148/91
[2020-01-09] MEDS: INSULIN LISPRO 100 UNITS/ML, PEN SQ-INSULIN SCH ×4 (08:17→21:00)
[2020-01-09] MEDS: FOLIC ACID 1 MG TABLET PO SCH (08:18)
[2020-01-09] MEDS: THIAMINE 100MG TABLET PO SCH (08:18)
[2020-01-09] MEDS: FLUOXETINE 10 MG CAP PO SCH (08:18)
[2020-01-09] MEDS: POTASSIUM CHLORIDE 20 MEQ TAB.ER.PRT PO SCH ×2 (08:21→17:58)
[2020-01-09] MEDS: SODIUM CHLORIDE FLUSH 10ML SYR IVF SCH ×2 (08:22→21:07)
[2020-01-09 18:53] VITALS: BP 149/91
[2020-01-09] MEDS: QUETIAPINE 25MG TABLET PO SCH (22:30)
[2020-01-09] MEDS: MORPHINE SULFATE 4 MG/ML, 1ML IVPush PRN (22:35)
[2020-01-10 00:52] VITALS: BP 156/100
[2020-01-10] MEDS: OXYcodone IR 5MG TABLET PO PRN ×2 (04:11→08:12)
[2020-01-10] MEDS: LACTATED RINGERS 1,000 ML IV SCH (04:12)
[2020-01-10 05:24] LABS: ALBUMIN 2.2 g/dL (3.4-5.0); ANION GAP 7 mmol/L (5-15); CALCIUM 8.1 mg/dL (8.5-10.1); CHLORIDE 103 mmol/L (98-107)
[2020-01-10 05:27] LABS: ALANINE AMINOTRANSFERASE 20 U/L (12-78); ALKALINE PHOSPHATASE 120 U/L (45-117); BILIRUBIN,TOTAL 2.5 mg/dL (0.2-1.0); CREATININE 0.57 mg/dL (0.7-1.3); TOTAL PROTEIN 6.6 g/dL (6.4-8.2)
[2020-01-10 05:30] LABS: MEAN CORPUSCULAR HEMOGLOBIN 37.3 pg (27.5-34.5); MEAN CORPUSCULAR HGB CONC 33.7 g/dL (33.2-36.2); MEAN CORPUSCULAR VOLUME 110.4 fL (81-97); MEAN PLATELET VOLUME 8.3 fL (7.4-10.4); PLATELET COUNT 123 x10^3/uL (130-400); RED BLOOD COUNT 3.55 x10^6/uL (4.38-5.82); RED CELL DISTRIBUTION WIDTH 14.3 % (9.4-14.8)
[2020-01-10] MEDS: HEPARIN 5,000 UNITS/ML, 1ML SQ SCH ×2 (06:09→12:02)
[2020-01-10] MEDS: LEVOTHYROXINE 75 MCG TABLET PO SCH (06:09)
[2020-01-10 06:12] LABS: BASOPHILS # (AUTO) 0.04 x10^3/uL (0-0.1); BASOPHILS % (AUTO) 1 % (0-1); EOSINOPHILS # (AUTO) 0.13 x10^3/uL (0-0.4); EOSINOPHILS % (AUTO) 2 % (1-7); LYMPHOCYTES # (AUTO) 1.51 x10^3/uL (1-3.4); LYMPHOCYTES % (AUTO) 22 % (22-44); MD SCAN; MONOCYTES # (AUTO) 0.81 x10^3/uL (0.2-0.8); MONOCYTES % (AUTO) 12 % (2-9); NEUTROPHILS % (AUTO) 63 % (42-75)
[2020-01-10] MEDS: SUCRALFATE 1 GM TABLET PO SCH ×2 (07:54→12:00)
[2020-01-10] MEDS: INSULIN LISPRO 100 UNITS/ML, PEN SQ-INSULIN SCH ×2 (07:55→11:54)
[2020-01-10] MEDS: FOLIC ACID 1 MG TABLET PO SCH (07:56)
[2020-01-10] MEDS: POTASSIUM CHLORIDE 20 MEQ TAB.ER.PRT PO SCH (07:56)
[2020-01-10] MEDS: THIAMINE 100MG TABLET PO SCH (07:56)
[2020-01-10] MEDS: FLUOXETINE 10 MG CAP PO SCH (07:59)
[2020-01-10] MEDS: SODIUM CHLORIDE FLUSH 10ML SYR IVF SCH (08:00)
[2020-01-10 08:50] VITALS: BP 106/73
[2020-01-10] MEDS ORDERED: INSU100I11 SQ-INSULIN (10:00)
[2020-01-10] MEDS ORDERED: FOLI-17 PO (10:00)
[2020-01-10] MEDS ORDERED: LEVO75TA PO (10:00)
[2020-01-10] MEDS ORDERED: INSU100I13 SQ-INSULIN ×5 (10:00→10:02)
[2020-01-10] MEDS ORDERED: THIA100T67 PO (10:00)
[2020-01-10] MEDS ORDERED: INSULIN GLARGINE 100 UNITS/ML, PEN SQ-INSULIN SCH (21:00)
== END 2020-01-10 14:00 | disposition home or self-care (01) | DRG 439 ==
LOC: ED 10:15 → EDIP 13:41 → SUATTDRO 14:05 → 3N 16:01
PROVIDERS: ADMIT Hospitalist; ATTEND Internal Medicine
DX: K85.20 Alcohol induced acute pancreatitis without necrosis or infection (principal); R65.10 Systemic inflammatory response syndrome (SIRS) of non-infectious origin without acute organ dysfunction; F41.1 Generalized anxiety disorder; I10 Essential (primary) hypertension; F20.9 Schizophrenia, unspecified; E11.43 Type 2 diabetes mellitus with diabetic autonomic (poly)neuropathy; E11.65 Type 2 diabetes mellitus with hyperglycemia; E78.5 Hyperlipidemia, unspecified; F32.9 Major depressive disorder, single episode, unspecified; K59.00 Constipation, unspecified; K21.9 Gastro-esophageal reflux disease without esophagitis; E03.9 Hypothyroidism, unspecified; D69.6 Thrombocytopenia, unspecified; E55.9 Vitamin D deficiency, unspecified; F17.210 Nicotine dependence, cigarettes, uncomplicated; Z79.4 Long term (current) use of insulin; Z82.49 Family history of ischemic heart disease and other diseases of the circulatory system; Z91.19 Patient's noncompliance with other medical treatment and regimen; Z88.6 Allergy status to analgesic agent; Z79.899 Other long term (current) drug therapy; Z79.51 Long term (current) use of inhaled steroids
CPT/HCPCS: 36415; 96361; 96374; 96375; 96376; 99285; J7613; 71045; 74177; 80053; 80061; 81003; 82607; 82962; 83036; 83690; 83735; 84100; 84439; 84443; 85025; 85610; 85730; 93306; 94640; G0378; J1170; J1644; J2405; J3411; J3480; Q0162; Q9967; J1815; J2060; J2270; J3475; J7030; J7040; J7120

== ENCOUNTER 2020-01-20 18:51 | Emergency (ER) | payer MEDICAID ==
[~2020-01-20] VITALS: Ht 167.6 cm; Wt 81.8 kg
[~2020-01-20 18:51] MED LIST changes: +FOLI-17 PO; +INSU100I11 SQ-INSULIN; +LEVO75TA PO; +THIA100T67 PO
[2020-01-20] MEDS ORDERED: MORPHINE SULFATE 4 MG/ML, 1ML ONE (19:27)
[2020-01-20] MEDS ORDERED: ONDANSETRON 2MG/ML, 2ML ONE (19:27)
[2020-01-20] MEDS ORDERED: MORPHINE SULFATE 4 MG/ML, 1ML IVPush ONE (20:00)
[2020-01-20] MEDS ORDERED: ONDANSETRON 2MG/ML, 2ML IVPush ONE (20:00)
--- NOTE | 2020-01-20 20:05 | NUR ---
XRAY awaiting CT C-spine clearance
[2020-01-20] MEDS ORDERED: OMNIPAQUE 350 MG/ML, 100ML BOTTLE ONE (20:23)
[2020-01-20] MEDS ORDERED: HYDROmorphone 1 MG/ML, 1ML INJ ONE ×2 (20:50→22:31)
[2020-01-20] MEDS ORDERED: HYDROmorphone 1 MG/ML, 1ML INJ IV ONE ×2 (21:00→22:00)
--- NOTE | 2020-01-20 21:07 | NUR ---
assumed care of the patient at this time.
[2020-01-20] MEDS ORDERED: ONDANSETRON ODT 8 MG ONE (23:29)
[2020-01-20] MEDS ORDERED: ONDANSETRON ODT 4 MG PO ONE (23:30)
[2020-01-21 00:32] VITALS: BP 124/62
== END 2020-01-21 00:36 | disposition home or self-care (01) ==
LOC: ED 21:10
DX: S22.32XA Fracture of one rib, left side, initial encounter for closed fracture (principal); G89.11 Acute pain due to trauma; R10.12 Left upper quadrant pain; R10.11 Right upper quadrant pain; M16.12 Unilateral primary osteoarthritis, left hip; M54.2 Cervicalgia; I10 Essential (primary) hypertension; E11.9 Type 2 diabetes mellitus without complications; J90 Pleural effusion, not elsewhere classified; W10.8XXA Fall (on) (from) other stairs and steps, initial encounter; Y93.89 Activity, other specified; Y92.098 Other place in other non-institutional residence as the place of occurrence of the external cause; Y99.8 Other external cause status
CPT/HCPCS: 71101; 72125; 73502; 74177; 96374; 96375; 96376; 99285; J1170; J2270; J2405; Q0162; Q9967

== ENCOUNTER 2020-01-29 03:15 | Inpatient (IN) | payer MEDICAID ==
[~2020-01-29] VITALS: Ht 170.2 cm; Wt 106.8 kg
[2020-01-29] MEDS ORDERED: HYDROcodone/APAP 5/325 TABLET PO ONE ×2 (03:30→08:30)
[2020-01-29] MEDS ORDERED: HYDROcodone/APAP 5/325 TABLET ONE ×2 (03:40→08:17)
[2020-01-29 03:49] LABS: MEAN CORPUSCULAR HEMOGLOBIN 36.6 pg (27.5-34.5); MEAN CORPUSCULAR HGB CONC 33.6 g/dL (33.2-36.2); MEAN CORPUSCULAR VOLUME 108.9 fL (81-97); MEAN PLATELET VOLUME 8.7 fL (7.4-10.4); PLATELET COUNT 91 x10^3/uL (130-400); RED BLOOD COUNT 3.99 x10^6/uL (4.38-5.82); RED CELL DISTRIBUTION WIDTH 14.5 % (9.4-14.8)
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
[2020-01-29 03:57] LABS: ANION GAP 9 mmol/L (5-15); CALCIUM 8.1 mg/dL (8.5-10.1); CHLORIDE 98 mmol/L (98-107)
[2020-01-29 04:01] LABS: AMPHETAMINE SCREEN, URINE Negative (Negative); BARBITURATE SCREEN, URINE Negative (Negative); BENZODIAZEPINE SCREEN, URINE Negative (Negative); CANNABINOID SCREEN, URINE Negative (Negative); COCAINE SCREEN, URINE Negative (Negative); METHADONE SCREEN, URINE Negative (Negative); OPIATE SCREEN, URINE Positive (Negative)
[2020-01-29 04:02] LABS: ALBUMIN 2.6 g/dL (3.4-5.0); CREATININE 0.78 mg/dL (0.7-1.3)
[2020-01-29 04:05] LABS: SALICYLATE LEVEL < 1.7 mg/dL (2.8-20.0)
--- NOTE | 2020-01-29 04:09 | NUR ---
Patient 88% on RA. Placed on O2. Patient requesting something to help him sleep. Advised patient we can reevaluate after the [place] starts working. Patient agreed.
--- NOTE | 2020-01-29 04:09 | NUR ---
Sitter outside, room secured, belongings x1 bag locked in cabinet.
[2020-01-29 04:25] LABS: BASOPHILS # (AUTO) 0.03 x10^3/uL (0-0.1); BASOPHILS % (AUTO) 0 % (0-1); EOSINOPHILS # (AUTO) 0.08 x10^3/uL (0-0.4); EOSINOPHILS % (AUTO) 1 % (1-7); LYMPHOCYTES # (AUTO) 1.84 x10^3/uL (1-3.4); LYMPHOCYTES % (AUTO) 17 % (22-44); MD SCAN; MONOCYTES # (AUTO) 1.12 x10^3/uL (0.2-0.8); MONOCYTES % (AUTO) 11 % (2-9); NEUTROPHILS # (AUTO) 7.55 x10^3/uL (1.8-6.8); NEUTROPHILS % (AUTO) 71 % (42-75)
--- NOTE | 2020-01-29 04:38 | NUR ---
Patient admits to alcohol use.
--- NOTE | 2020-01-29 05:08 | NUR ---
Patient requesting pain meds. Advised patient he cannot have more pain meds due to DOLLY and other opiates taken. Patient remains on O2.
--- NOTE | 2020-01-29 06:41 | NUR ---
Spoke with Margaret from [facility]. Patient was brought to [facility] from [facility] and sent here due to staffing issue. Advised Margaret that patient DOLLY >0.3 and will be telepsych once below legal limit. Patient still c/o pain. Advised patient we will have to reevaluate pain medical care administrator after patient is sober. Patient agreed. Remains on O2 at this time.
--- NOTE | 2020-01-29 06:50 | NUR ---
Report to MELVIN Dumas.
--- NOTE | 2020-01-29 07:01 | NUR ---
REPORT RECEIVED FROM MEGHNA CHARLES. PT RESTING ON GURNEY, SITTER OUTSIDE ROOM, CHEST RISE AND FALL OBSERVED.
--- NOTE | 2020-01-29 08:00 | NUR ---
BREAKFAST TRAY DELIVERED TO PT. PT STATES "I DONT WANT TO LIVE ANYMORE, BUT MY BABIES". PT TEARFUL.
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
--- NOTE | 2020-01-29 09:06 | NUR ---
PT RESTING ON GURNEY W/ SITTER OUTSIDE ROOM, GARAGE DOORS DOWN.
--- NOTE | 2020-01-29 10:24 | NUR ---
PT RESTING ON GURNEY W/ SITTER OUTSIDE ROOM, GARAGE DOORS DOWN.
[2020-01-29] MEDS ORDERED: LORazepam 1MG TABLET ONE ×2 (11:19→15:34)
--- NOTE | 2020-01-29 11:23 | NUR ---
PT MEDICATED PER VERBAL ORDER FOR 1MG ATIVAN PO.
[2020-01-29] MEDS ORDERED: LORazepam 1MG TABLET PO ONE ×2 (11:30→16:00)
--- NOTE | 2020-01-29 12:15 | NUR ---
PT RESTING ON [facility] W/ SITER OUTSIDE ROOM, GARAGE DOORS DOWN.
--- NOTE | 2020-01-29 13:13 | NUR ---
PT REQ INHALER. PER DR.BARNES GABRIEL TO GIVE PT ALBUTEROL INHALER FROM HOME.
--- NOTE | 2020-01-29 13:28 | NUR ---
PT EXTREMELY ANXIOUS AND REPORTS HE IS CLAUSTROPHOBIC, REQ WALK. SITTER WALKED W/ PT AROUND UNIT. PT AMBULATED W/ A STEADY GAIT.
--- NOTE | 2020-01-29 14:28 | NUR ---
PT AMBULATED TO THE BR W/ A STEADY GAIT. RETUNED TO ROOM, NADN. SITTER OUTSIDE ROOM, GARAGE DOORS DOWN.
[2020-01-29 14:30] VITALS: BP 150/87
--- NOTE | 2020-01-29 15:08 | NUR ---
TO GO SPEAK W/ PT.
--- NOTE | 2020-01-29 15:38 | NUR ---
SPOKE W/ PT. VERBAL ORDER FOR 2MG PO ATIVAN, PT MEDICATED. DION STEELE NOW IN ROOM.
--- NOTE | 2020-01-29 16:02 | NUR ---
PT REFUSING TO KEEP MONITORING ON.
[2020-01-29] MEDS: INSULIN LISPRO 100 UNITS/ML, PEN SQ-INSULIN SCH ×2 (16:30→21:31)
[2020-01-29] MEDS ORDERED: PROMETHAZINE 25 MG/ML, 1ML IM PRN (16:30)
[2020-01-29] MEDS ORDERED: LORazepam 0.5MG TABLET PO PRN (16:30)
[2020-01-29] MEDS ORDERED: LORazepam 2 MG/ML, 1ML IV PRN ×3 (16:30)
[2020-01-29] MEDS ORDERED: ACETAMINOPHEN 325 MG TABLET PO PRN (16:30)
[2020-01-29] MEDS ORDERED: LABETALOL 5MG/ML, 20ML IVPush PRN (16:30)
[2020-01-29] MEDS ORDERED: LORazepam 1MG TABLET PO PRN ×2 (16:30)
--- NOTE | 2020-01-29 16:54 | NUR ---
AWAITING LAB TO DRAW CULTURES PRIOR TO ADMIN OF ABX.
[2020-01-29] MEDS: SODIUM CHLORIDE 0.9% 1,000 ML IV SCH (17:03)
[2020-01-29] MEDS ORDERED: LIDOCAINE 1%, 10ML ONE (17:04)
--- NOTE | 2020-01-29 17:13 | NUR ---
REPORT GIVEN TO ADIEL CHARLES. IR HERE FOR THOACENTESIS. WILL TRANSPORT AFTER PROCEDURE.
--- NOTE | 2020-01-29 17:25 | NUR ---
ATTEMPT TO CALL RAMBO CHARLES FOR REPORT. WILL CALL BACK WHEN READY.
--- NOTE | 2020-01-29 17:44 | NUR ---
TELEPHONE CALL PLACED TO CT TO LET THEM KNOW IR IS FINISHED IN ROOM AND THEY CAN TAKE PT FOR CHEST CT.
--- NOTE | 2020-01-29 17:50 | NUR ---
IR REPORTS PULLING OFF 1550ML OF FLUID FROM PT.
--- NOTE | 2020-01-29 18:14 | NUR ---
PT TRANSPORTED UPSTAIRS W/ SITTER. BELONGINGS BAG TRANSPORTED W/ PT.
[2020-01-29] MEDS ORDERED: OMNIPAQUE 350 MG/ML, 75ML BOTTLE ONE (18:22)
[2020-01-29 19:03] VITALS: BP 171/95
[2020-01-29] MEDS: TRAZODONE 100MG TABLET PO SCH (21:28)
[2020-01-29] MEDS: HEPARIN 5,000 UNITS/ML, 1ML SQ SCH (21:28)
[2020-01-29] MEDS: SUCRALFATE 1 GM TABLET PO SCH (21:29)
[2020-01-29] MEDS: hydrALAzine 20 MG/ML, 1ML IVPush PRN (21:29)
[2020-01-29] MEDS: HYDROcodone/APAP 5/325 TABLET PO PRN (21:29)
[2020-01-29] MEDS: INSULIN GLARGINE 100 UNITS/ML, PEN SQ-INSULIN SCH (21:30)
[2020-01-29] MEDS: CEFTRIAXONE PMX 1GM/50ML 50 ML IV SCH (22:17)
[2020-01-29] MEDS: DOXYCYCLINE 100 MG in DEXTROSE 5% 250 ML IV SCH (23:29)
[2020-01-30] MEDS: LORazepam 1MG TABLET PO PRN ×3 (00:13→15:31)
[2020-01-30] MEDS: HYDROcodone/APAP 5/325 TABLET PO PRN ×4 (02:15→20:57)
[2020-01-30 02:52] VITALS: BP 140/80
[2020-01-30] MEDS: HEPARIN 5,000 UNITS/ML, 1ML SQ SCH ×3 (05:26→20:55)
[2020-01-30] MEDS: LEVOTHYROXINE 75 MCG TABLET PO SCH (05:26)
[2020-01-30] MEDS: SODIUM CHLORIDE 0.9% 1,000 ML IV SCH ×2 (05:28→15:31)
[2020-01-30 05:35] LABS: ALANINE AMINOTRANSFERASE 23 U/L (12-78); ALBUMIN 2.3 g/dL (3.4-5.0); ANION GAP 8 mmol/L (5-15); CHLORIDE 99 mmol/L (98-107); CREATININE 0.56 mg/dL (0.7-1.3)
[2020-01-30 05:37] LABS: ALKALINE PHOSPHATASE 169 U/L (45-117); BILIRUBIN,TOTAL 3.1 mg/dL (0.2-1.0); TOTAL PROTEIN 7.4 g/dL (6.4-8.2)
[2020-01-30 05:43] LABS: BASOPHILS # (AUTO) 0.04 x10^3/uL (0-0.1); BASOPHILS % (AUTO) 0 % (0-1); EOSINOPHILS # (AUTO) 0.03 x10^3/uL (0-0.4); EOSINOPHILS % (AUTO) 0 % (1-7); LYMPHOCYTES # (AUTO) 0.94 x10^3/uL (1-3.4); LYMPHOCYTES % (AUTO) 10 % (22-44); MD SCAN; MEAN CORPUSCULAR HEMOGLOBIN 37.1 pg (27.5-34.5); MEAN CORPUSCULAR HGB CONC 33.6 g/dL (33.2-36.2); MEAN CORPUSCULAR VOLUME 110.4 fL (81-97); MEAN PLATELET VOLUME 8.7 fL (7.4-10.4); MONOCYTES # (AUTO) 0.77 x10^3/uL (0.2-0.8); MONOCYTES % (AUTO) 8 % (2-9); NEUTROPHILS # (AUTO) 8.14 x10^3/uL (1.8-6.8); NEUTROPHILS % (AUTO) 82 % (42-75); PLATELET COUNT 77 x10^3/uL (130-400); RED BLOOD COUNT 3.87 x10^6/uL (4.38-5.82); RED CELL DISTRIBUTION WIDTH 14.9 % (9.4-14.8)
[2020-01-30 07:52] VITALS: BP 189/113
[2020-01-30] MEDS: INSULIN LISPRO 100 UNITS/ML, PEN SQ-INSULIN SCH ×4 (08:05→20:57)
[2020-01-30] MEDS: FLUOXETINE 10 MG CAP PO SCH (08:06)
[2020-01-30] MEDS: MULTIVITAMIN 1 TABLET PO SCH (08:06)
[2020-01-30] MEDS: THIAMINE 100MG TABLET PO SCH (08:06)
[2020-01-30] MEDS: FOLIC ACID 1 MG TABLET PO SCH (08:06)
[2020-01-30] MEDS: SUCRALFATE 1 GM TABLET PO SCH ×4 (08:07→20:57)
[2020-01-30] MEDS: DOXYCYCLINE 100 MG in DEXTROSE 5% 250 ML IV SCH ×2 (10:19→22:40)
[2020-01-30 10:21] VITALS: BP 177/106
[2020-01-30] MEDS: hydrALAzine 20 MG/ML, 1ML IVPush PRN (10:34)
[2020-01-30 15:22] LABS: FREE T4 (FREE THYROXINE) 0.98 ng/dL (0.76-1.46)
[2020-01-30 15:28] VITALS: BP 163/80
[2020-01-30] MEDS: ONDANSETRON 2MG/ML, 2ML IVPush PRN (18:32)
[2020-01-30] MEDS: CEFTRIAXONE PMX 1GM/50ML 50 ML IV SCH (20:55)
[2020-01-30] MEDS: TRAZODONE 100MG TABLET PO SCH (20:55)
[2020-01-30] MEDS: INSULIN GLARGINE 100 UNITS/ML, PEN SQ-INSULIN SCH (21:01)
[2020-01-30 22:41] VITALS: BP 155/80
[2020-01-31] MEDS: HYDROcodone/APAP 5/325 TABLET PO PRN ×4 (01:24→20:35)
[2020-01-31 03:43] VITALS: BP 167/95
[2020-01-31] MEDS: HEPARIN 5,000 UNITS/ML, 1ML SQ SCH ×3 (05:08→20:36)
[2020-01-31] MEDS: LEVOTHYROXINE 75 MCG TABLET PO SCH (06:08)
[2020-01-31] MEDS: SUCRALFATE 1 GM TABLET PO SCH ×4 (06:08→20:36)
[2020-01-31 08:06] VITALS: BP 165/93
[2020-01-31] MEDS: SODIUM CHLORIDE 0.9% 1,000 ML IV SCH ×2 (08:15→20:45)
[2020-01-31] MEDS: INSULIN LISPRO 100 UNITS/ML, PEN SQ-INSULIN SCH ×4 (08:15→20:45)
[2020-01-31] MEDS: FOLIC ACID 1 MG TABLET PO SCH (08:27)
[2020-01-31] MEDS: MULTIVITAMIN 1 TABLET PO SCH (08:27)
[2020-01-31] MEDS: THIAMINE 100MG TABLET PO SCH (08:27)
[2020-01-31] MEDS: FLUOXETINE 10 MG CAP PO SCH (08:28)
[2020-01-31] MEDS: LORazepam 1MG TABLET PO PRN ×2 (08:28→16:26)
[2020-01-31] MEDS: DOXYCYCLINE 100 MG in DEXTROSE 5% 250 ML IV SCH (11:09)
[2020-01-31] MEDS: ONDANSETRON 2MG/ML, 2ML IVPush PRN (11:11)
[2020-01-31 13:26] VITALS: BP 169/108
[2020-01-31 16:19] VITALS: BP 164/101
[2020-01-31] MEDS: hydrALAzine 20 MG/ML, 1ML IVPush PRN (16:27)
[2020-01-31] MEDS ORDERED: POTASSIUM PHOSPHATE 44 MEQ in SODIUM CHLORIDE 0.9% 500 ML IV ONE (16:30)
[2020-01-31] MEDS ORDERED: MAGNESIUM SULFATE PMX 2GM/50ML 50 ML IV ONE (16:30)
[2020-01-31 17:29] VITALS: BP 149/74
[2020-01-31 20:07] VITALS: BP 142/96
[2020-01-31] MEDS: CEFDINIR 300 MG CAPSULE PO SCH (20:35)
[2020-01-31] MEDS: TRAZODONE 100MG TABLET PO SCH (20:35)
[2020-01-31] MEDS: DOXYCYCLINE 100MG TABLET PO SCH (20:36)
[2020-01-31] MEDS: INSULIN GLARGINE 100 UNITS/ML, PEN SQ-INSULIN SCH (20:52)
[2020-02-01 00:09] VITALS: BP 143/101
[2020-02-01] MEDS: HYDROcodone/APAP 5/325 TABLET PO PRN ×4 (00:20→16:58)
[2020-02-01] MEDS: HEPARIN 5,000 UNITS/ML, 1ML SQ SCH ×3 (04:23→20:40)
[2020-02-01 05:50] LABS: ALBUMIN 2.1 g/dL (3.4-5.0); ANION GAP 9 mmol/L (5-15); CALCIUM 7.3 mg/dL (8.5-10.1); CHLORIDE 96 mmol/L (98-107)
[2020-02-01 06:00] LABS: MEAN CORPUSCULAR HEMOGLOBIN 36.6 pg (27.5-34.5); MEAN CORPUSCULAR HGB CONC 33.4 g/dL (33.2-36.2); MEAN CORPUSCULAR VOLUME 109.4 fL (81-97); MEAN PLATELET VOLUME 8.6 fL (7.4-10.4); PLATELET COUNT 70 x10^3/uL (130-400); RED BLOOD COUNT 3.57 x10^6/uL (4.38-5.82); RED CELL DISTRIBUTION WIDTH 14.7 % (9.4-14.8)
[2020-02-01] MEDS: THYROID 30 MG TABLET PO SCH (06:06)
[2020-02-01] MEDS: SUCRALFATE 1 GM TABLET PO SCH ×4 (06:06→20:40)
[2020-02-01 06:37] LABS: BASOPHILS # (AUTO) 0.04 x10^3/uL (0-0.1); BASOPHILS % (AUTO) 0 % (0-1); EOSINOPHILS # (AUTO) 0.23 x10^3/uL (0-0.4); EOSINOPHILS % (AUTO) 3 % (1-7); LYMPHOCYTES # (AUTO) 1.68 x10^3/uL (1-3.4); LYMPHOCYTES % (AUTO) 20 % (22-44); MD SCAN; MONOCYTES # (AUTO) 0.75 x10^3/uL (0.2-0.8); MONOCYTES % (AUTO) 9 % (2-9); NEUTROPHILS # (AUTO) 5.86 x10^3/uL (1.8-6.8); NEUTROPHILS % (AUTO) 69 % (42-75)
[2020-02-01 07:57] VITALS: BP 132/90
[2020-02-01] MEDS ORDERED: MAGNESIUM SULFATE PMX 2GM/50ML 50 ML IV ONE (09:00)
[2020-02-01] MEDS ORDERED: SUCRALFATE 1 GM/10 ML UDC ONE (09:30)
[2020-02-01] MEDS ORDERED: POTASSIUM CHLORIDE 20 MEQ in SODIUM CHLORIDE 0.9% 250 ML IV ONE (09:30)
[2020-02-01] MEDS: FLUOXETINE 10 MG CAP PO SCH (09:59)
[2020-02-01] MEDS: MULTIVITAMIN 1 TABLET PO SCH (09:59)
[2020-02-01] MEDS: LORazepam 1MG TABLET PO PRN (09:59)
[2020-02-01] MEDS: CEFDINIR 300 MG CAPSULE PO SCH ×2 (10:00→20:40)
[2020-02-01] MEDS: DOXYCYCLINE 100MG TABLET PO SCH ×2 (10:00→20:40)
[2020-02-01] MEDS: THIAMINE 100MG TABLET PO SCH (10:00)
[2020-02-01] MEDS: FOLIC ACID 1 MG TABLET PO SCH (10:00)
[2020-02-01] MEDS: SODIUM CHLORIDE 0.9% 1,000 ML IV SCH (11:07)
[2020-02-01 13:01] VITALS: BP 148/88
[2020-02-01 20:33] VITALS: BP 125/88
[2020-02-01] MEDS: TRAZODONE 100MG TABLET PO SCH (20:40)
[2020-02-01] MEDS: INSULIN GLARGINE 100 UNITS/ML, PEN SQ-INSULIN SCH (20:48)
[2020-02-02 00:46] VITALS: BP 151/85
[2020-02-02] MEDS: HYDROcodone/APAP 5/325 TABLET PO PRN ×4 (03:12→18:10)
[2020-02-02] MEDS: THYROID 30 MG TABLET PO SCH (05:21)
[2020-02-02] MEDS: SODIUM CHLORIDE 0.9% 1,000 ML IV SCH ×2 (05:22→18:09)
[2020-02-02] MEDS: HEPARIN 5,000 UNITS/ML, 1ML SQ SCH ×3 (05:22→20:17)
[2020-02-02 06:51] LABS: MEAN CORPUSCULAR HEMOGLOBIN 37.1 pg (27.5-34.5); MEAN CORPUSCULAR HGB CONC 33.9 g/dL (33.2-36.2); MEAN CORPUSCULAR VOLUME 109.5 fL (81-97); MEAN PLATELET VOLUME 8.5 fL (7.4-10.4); PLATELET COUNT 85 x10^3/uL (130-400); RED BLOOD COUNT 3.44 x10^6/uL (4.38-5.82); RED CELL DISTRIBUTION WIDTH 14.5 % (9.4-14.8)
[2020-02-02 06:55] LABS: ALBUMIN 2.1 g/dL (3.4-5.0); ANION GAP 9 mmol/L (5-15); CALCIUM 7.8 mg/dL (8.5-10.1); CHLORIDE 100 mmol/L (98-107)
[2020-02-02 06:58] LABS: CREATININE 0.54 mg/dL (0.7-1.3)
[2020-02-02 07:31] LABS: BASOPHILS # (AUTO) 0.03 x10^3/uL (0-0.1); BASOPHILS % (AUTO) 0 % (0-1); EOSINOPHILS # (AUTO) 0.16 x10^3/uL (0-0.4); EOSINOPHILS % (AUTO) 2 % (1-7); LYMPHOCYTES # (AUTO) 1.33 x10^3/uL (1-3.4); LYMPHOCYTES % (AUTO) 19 % (22-44); MD SCAN; MONOCYTES # (AUTO) 0.58 x10^3/uL (0.2-0.8); MONOCYTES % (AUTO) 8 % (2-9); NEUTROPHILS # (AUTO) 5.02 x10^3/uL (1.8-6.8); NEUTROPHILS % (AUTO) 71 % (42-75)
[2020-02-02] MEDS: CEFDINIR 300 MG CAPSULE PO SCH ×2 (08:00→20:16)
[2020-02-02] MEDS: FOLIC ACID 1 MG TABLET PO SCH (08:00)
[2020-02-02] MEDS: SUCRALFATE 1 GM TABLET PO SCH ×4 (08:00→20:15)
[2020-02-02] MEDS: THIAMINE 100MG TABLET PO SCH (08:00)
[2020-02-02] MEDS: FLUOXETINE 10 MG CAP PO SCH (08:00)
[2020-02-02] MEDS: MULTIVITAMIN 1 TABLET PO SCH (08:00)
[2020-02-02] MEDS: DOXYCYCLINE 100MG TABLET PO SCH ×2 (08:00→20:16)
[2020-02-02 08:24] VITALS: BP 136/90
[2020-02-02] MEDS ORDERED: DOCUSATE 100 MG CAPSULE PO PRN (09:30)
[2020-02-02] MEDS ORDERED: POLYETHYLENE GLYCOL 17 GM PACKET NG PRN (09:30)
[2020-02-02] MEDS ORDERED: DOCUSATE 100 MG CAPSULE ONE (09:34)
[2020-02-02] MEDS: morphine SULFATE 10 MG/ML, 1ML IVPush PRN ×2 (09:37→16:20)
[2020-02-02 14:59] VITALS: BP 114/82
[2020-02-02] MEDS: ONDANSETRON 2MG/ML, 2ML IVPush PRN (16:20)
[2020-02-02 19:56] VITALS: BP 160/87
[2020-02-02] MEDS: TRAZODONE 100MG TABLET PO SCH (20:16)
[2020-02-02] MEDS: INSULIN GLARGINE 100 UNITS/ML, PEN SQ-INSULIN SCH (20:17)
[2020-02-03] MEDS: ONDANSETRON 2MG/ML, 2ML IVPush PRN (00:03)
[2020-02-03] MEDS: morphine SULFATE 10 MG/ML, 1ML IVPush PRN ×3 (00:03→13:32)
[2020-02-03 01:10] VITALS: BP 147/91
[2020-02-03] MEDS: THYROID 30 MG TABLET PO SCH (05:04)
[2020-02-03] MEDS: HEPARIN 5,000 UNITS/ML, 1ML SQ SCH ×2 (05:04→13:31)
[2020-02-03 07:45] VITALS: BP 121/85
[2020-02-03] MEDS: FOLIC ACID 1 MG TABLET PO SCH (08:07)
[2020-02-03] MEDS: MULTIVITAMIN 1 TABLET PO SCH (08:07)
[2020-02-03] MEDS: THIAMINE 100MG TABLET PO SCH (08:07)
[2020-02-03] MEDS: DOXYCYCLINE 100MG TABLET PO SCH (08:07)
[2020-02-03] MEDS: FLUOXETINE 10 MG CAP PO SCH (08:07)
[2020-02-03] MEDS: SUCRALFATE 1 GM TABLET PO SCH ×2 (08:07→13:31)
[2020-02-03] MEDS: CEFDINIR 300 MG CAPSULE PO SCH (09:00)
[2020-02-03] MEDS ORDERED: FUROSEMIDE 20 MG TABLET PO SCH (11:30)
[2020-02-03] MEDS ORDERED: SPIRONOLACTONE 25 MG TABLET PO SCH (11:30)
[2020-02-03 12:23] VITALS: BP 146/90
[2020-02-03] MEDS ORDERED: THYR30TA PO (12:51)
[2020-02-03] MEDS ORDERED: CEFD300C37 PO (12:51)
[2020-02-03] MEDS ORDERED: FURO20TA3 PO (12:51)
[2020-02-03] MEDS ORDERED: MULT1TAB60 PO (12:51)
[2020-02-03] MEDS ORDERED: THIA100T67 PO (12:51)
[2020-02-03] MEDS ORDERED: DOXY100T PO (12:51)
[2020-02-03] MEDS ORDERED: SPIR25TA PO (12:51)
[2020-02-03] MEDS ORDERED: POTA20TA6 PO (12:55)
[2020-02-03 13:10] LABS: ALANINE AMINOTRANSFERASE 25 U/L (12-78); ALBUMIN 2.2 g/dL (3.4-5.0); ANION GAP 4 mmol/L (5-15); CALCIUM 8.2 mg/dL (8.5-10.1); CHLORIDE 103 mmol/L (98-107); CREATININE 0.66 mg/dL (0.7-1.3); INTERNATIONAL NORMALIZED RATIO 1.32 (0.93-1.1)
[2020-02-03 13:12] LABS: ALKALINE PHOSPHATASE 150 U/L (45-117); BILIRUBIN,TOTAL 1.6 mg/dL (0.2-1.0); TOTAL PROTEIN 6.8 g/dL (6.4-8.2)
== END 2020-02-03 14:00 | DRG 194 ==
LOC: ED 03:55 → EDIP 15:57 → 4NE 18:50 → 3N 01-31 17:47 → 4NE 01-31 18:01
PROVIDERS: ADMIT Internal Medicine; ATTEND Hospitalist
PROC: 0W9B3ZZ Drainage of Left Pleural Cavity, Percutaneous Approach (ICD-10-PCS; principal; 2020-01-29)
DX: J18.9 Pneumonia, unspecified organism (principal); E87.1 Hypo-osmolality and hyponatremia; F10.239 Alcohol dependence with withdrawal, unspecified; F33.2 Major depressive disorder, recurrent severe without psychotic features; R45.851 Suicidal ideations; J91.8 Pleural effusion in other conditions classified elsewhere; D69.59 Other secondary thrombocytopenia; E03.9 Hypothyroidism, unspecified; E11.65 Type 2 diabetes mellitus with hyperglycemia; E78.00 Pure hypercholesterolemia, unspecified; E78.5 Hyperlipidemia, unspecified; F10.220 Alcohol dependence with intoxication, uncomplicated; Y90.9 Presence of alcohol in blood, level not specified; F17.200 Nicotine dependence, unspecified, uncomplicated; F20.9 Schizophrenia, unspecified; I10 Essential (primary) hypertension; Z82.49 Family history of ischemic heart disease and other diseases of the circulatory system; Z79.4 Long term (current) use of insulin; Z91.14 Patient's other noncompliance with medication regimen; Z20.828 Contact with and (suspected) exposure to other viral communicable diseases
CPT/HCPCS: 32555; 36415; 82042; 82945; 83986; 84145; 89051; 99285; J3490; 71045; 71260; 80048; 80053; 80069; 80307; 82040; 82306; 82962; 83615; 83735; 84100; 84157; 84439; 84443; 84481; 85025; 85610; 87040; 87070; 87075; 87205; 93005; G0378; J0696; J1644; J2405; J3480; J7060; Q9967; J0360; J1815; J2270; J3475; J7030; J7040; J7050; U0001

== ENCOUNTER 2020-02-03 14:05 | Inpatient (IN) | payer MEDICAID ==
[~2020-02-03] VITALS: Ht 170.2 cm; Wt 84.1 kg
[~2020-02-03 14:05] MED LIST changes: +FURO20TA3 PO; +HYDR-3246 PO; -HYDR-36 PO; +MULT1TAB60 PO; +POTA20TA6 PO; +SPIR25TA PO; +THYR30TA PO
[2020-02-03] MEDS ORDERED: PLEASE ENTER HEIGHT AND WEIGHT MC SCH (15:00)
[2020-02-03] MEDS ORDERED: ALBUTEROL SULFATE 2.5 MG/3 ML NPPB PRN (16:00)
[2020-02-03] MEDS ORDERED: DOCUSATE 100 MG CAPSULE PO PRN (16:30)
[2020-02-03] MEDS ORDERED: DOXYCYCLINE 100MG TABLET PO SCH (16:30)
[2020-02-03] MEDS: HYDROXYZINE PAMOATE 50MG CAP PO PRN (16:45)
[2020-02-03 16:52] VITALS: BP 108/70
[2020-02-03] MEDS: ALBUTEROL SULFATE 2.5 MG/3 ML NPPB SCH (19:20)
[2020-02-03 19:44] VITALS: BP 135/73
[2020-02-03] MEDS ORDERED: CEFDINIR 300 MG CAPSULE PO SCH (21:00)
[2020-02-03] MEDS: TRAZODONE 100MG TABLET PO SCH (21:22)
[2020-02-03] MEDS: SUCRALFATE 1 GM TABLET PO SCH (21:22)
[2020-02-03] MEDS: CEFDINIR 300 MG CAPSULE PO SCH (21:22)
[2020-02-03] MEDS: INSULIN GLARGINE 100 UNITS/ML, PEN SQ-INSULIN SCH (21:24)
[2020-02-04 02:25] LABS: MICROSCOPIC NOT IND
[2020-02-04] MEDS: THYROID 30 MG TABLET PO SCH (06:15)
[2020-02-04 07:44] VITALS: BP 151/85
[2020-02-04] MEDS: SUCRALFATE 1 GM TABLET PO SCH ×4 (07:55→20:18)
[2020-02-04] MEDS: MULTIVITAMIN 1 TABLET PO SCH (08:26)
[2020-02-04] MEDS: THIAMINE 100MG TABLET PO SCH (08:26)
[2020-02-04] MEDS: FUROSEMIDE 20 MG TABLET PO SCH (08:26)
[2020-02-04] MEDS: DOXYCYCLINE 100MG TABLET PO SCH ×2 (08:26→16:51)
[2020-02-04] MEDS: SPIRONOLACTONE 25 MG TABLET PO SCH (08:26)
[2020-02-04] MEDS: CEFDINIR 300 MG CAPSULE PO SCH ×2 (08:35→20:21)
[2020-02-04] MEDS: ALBUTEROL SULFATE 2.5 MG/3 ML NPPB SCH ×2 (09:30→21:00)
[2020-02-04] MEDS: OXYcodone IR 5MG TABLET PO PRN ×2 (12:18→20:19)
[2020-02-04] MEDS: FLUOXETINE HCL 20 MG CAPSULE PO SCH (16:51)
[2020-02-04 19:15] VITALS: BP 122/74
[2020-02-04] MEDS: HYDROXYZINE PAMOATE 50MG CAP PO PRN (20:18)
[2020-02-04] MEDS: TRAZODONE 100MG TABLET PO SCH (20:18)
[2020-02-04] MEDS: INSULIN GLARGINE 100 UNITS/ML, PEN SQ-INSULIN SCH (22:59)
[2020-02-05] MEDS: DOXYCYCLINE 100MG TABLET PO SCH ×2 (05:11→16:02)
[2020-02-05] MEDS: THYROID 30 MG TABLET PO SCH (05:11)
[2020-02-05 07:37] VITALS: BP 126/79
[2020-02-05] MEDS: SUCRALFATE 1 GM TABLET PO SCH ×4 (07:51→19:50)
[2020-02-05] MEDS: SPIRONOLACTONE 25 MG TABLET PO SCH (08:21)
[2020-02-05] MEDS: MULTIVITAMIN 1 TABLET PO SCH (08:22)
[2020-02-05] MEDS: FLUOXETINE HCL 20 MG CAPSULE PO SCH (08:22)
[2020-02-05] MEDS: FUROSEMIDE 20 MG TABLET PO SCH (08:22)
[2020-02-05] MEDS: THIAMINE 100MG TABLET PO SCH (08:22)
[2020-02-05] MEDS: CEFDINIR 300 MG CAPSULE PO SCH ×2 (08:23→19:57)
[2020-02-05] MEDS: ALBUTEROL SULFATE 2.5 MG/3 ML NPPB SCH ×2 (09:00→21:26)
[2020-02-05] MEDS: LORazepam 0.5MG TABLET PO PRN (13:57)
[2020-02-05 19:06] VITALS: BP 137/85
[2020-02-05] MEDS: OXYcodone IR 5MG TABLET PO PRN (19:50)
[2020-02-05] MEDS: TRAZODONE 100MG TABLET PO SCH (19:50)
[2020-02-05] MEDS: LIDOCAINE GEL 2%, 5ML TP SCH (19:52)
[2020-02-05] MEDS: INSULIN GLARGINE 100 UNITS/ML, PEN SQ-INSULIN SCH (19:59)
[2020-02-06] MEDS: DOXYCYCLINE 100MG TABLET PO SCH ×2 (04:17→19:53)
[2020-02-06] MEDS: THYROID 30 MG TABLET PO SCH (06:18)
[2020-02-06] MEDS: LORazepam 0.5MG TABLET PO PRN ×2 (06:20→17:56)
[2020-02-06] MEDS: OXYcodone IR 5MG TABLET PO PRN ×2 (06:35→19:54)
[2020-02-06 07:28] VITALS: BP 132/77
[2020-02-06] MEDS: SUCRALFATE 1 GM TABLET PO SCH ×4 (07:37→22:47)
[2020-02-06] MEDS: ALBUTEROL SULFATE 2.5 MG/3 ML NPPB SCH ×2 (09:00→21:00)
[2020-02-06] MEDS: CEFDINIR 300 MG CAPSULE PO SCH ×2 (09:00→20:04)
[2020-02-06] MEDS: SPIRONOLACTONE 25 MG TABLET PO SCH (09:04)
[2020-02-06] MEDS: MULTIVITAMIN 1 TABLET PO SCH (09:04)
[2020-02-06] MEDS: THIAMINE 100MG TABLET PO SCH (09:04)
[2020-02-06] MEDS: FUROSEMIDE 20 MG TABLET PO SCH (09:04)
[2020-02-06] MEDS: FLUOXETINE HCL 20 MG CAPSULE PO SCH (09:05)
[2020-02-06] MEDS: LIDOCAINE GEL 2%, 5ML TP SCH ×2 (09:07→20:04)
[2020-02-06 19:06] VITALS: BP 130/84
[2020-02-06] MEDS: TRAZODONE 100MG TABLET PO SCH (19:53)
[2020-02-06] MEDS: HYDROXYZINE PAMOATE 50MG CAP PO PRN (19:54)
[2020-02-06] MEDS: INSULIN GLARGINE 100 UNITS/ML, PEN SQ-INSULIN SCH (20:03)
[2020-02-07] MEDS: LORazepam 0.5MG TABLET PO PRN ×3 (02:17→20:24)
[2020-02-07] MEDS: THYROID 30 MG TABLET PO SCH (05:22)
[2020-02-07] MEDS: SUCRALFATE 1 GM TABLET PO SCH ×4 (07:37→22:46)
[2020-02-07] MEDS: OXYcodone IR 5MG TABLET PO PRN ×3 (07:43→22:47)
[2020-02-07 07:45] VITALS: BP 129/84
[2020-02-07] MEDS: FLUOXETINE HCL 20 MG CAPSULE PO SCH (08:41)
[2020-02-07] MEDS: MULTIVITAMIN 1 TABLET PO SCH (08:41)
[2020-02-07] MEDS: THIAMINE 100MG TABLET PO SCH (08:41)
[2020-02-07] MEDS: SPIRONOLACTONE 25 MG TABLET PO SCH (08:42)
[2020-02-07] MEDS: FUROSEMIDE 20 MG TABLET PO SCH (08:42)
[2020-02-07] MEDS: LIDOCAINE GEL 2%, 5ML TP SCH ×2 (08:43→22:52)
[2020-02-07] MEDS: DOXYCYCLINE 100MG TABLET PO SCH ×2 (09:34→20:24)
[2020-02-07] MEDS: ALBUTEROL SULFATE 2.5 MG/3 ML NPPB SCH ×2 (10:38→20:50)
[2020-02-07 19:34] VITALS: BP 111/69
[2020-02-07] MEDS: TRAZODONE 100MG TABLET PO SCH (20:24)
[2020-02-07] MEDS: INSULIN GLARGINE 100 UNITS/ML, PEN SQ-INSULIN SCH (20:26)
[2020-02-08] MEDS: THYROID 30 MG TABLET PO SCH (05:43)
[2020-02-08] MEDS: OXYcodone IR 5MG TABLET PO PRN ×2 (05:46→17:59)
[2020-02-08 07:37] VITALS: BP 126/77
[2020-02-08] MEDS: SUCRALFATE 1 GM TABLET PO SCH ×4 (07:44→20:31)
[2020-02-08] MEDS: FLUOXETINE HCL 20 MG CAPSULE PO SCH (08:08)
[2020-02-08] MEDS: THIAMINE 100MG TABLET PO SCH (08:08)
[2020-02-08] MEDS: LORazepam 0.5MG TABLET PO PRN ×2 (08:08→16:52)
[2020-02-08] MEDS: SPIRONOLACTONE 25 MG TABLET PO SCH (08:09)
[2020-02-08] MEDS: MULTIVITAMIN 1 TABLET PO SCH (08:09)
[2020-02-08] MEDS: FUROSEMIDE 20 MG TABLET PO SCH (08:09)
[2020-02-08] MEDS: ALBUTEROL SULFATE 2.5 MG/3 ML NPPB SCH ×2 (09:20→18:38)
[2020-02-08] MEDS: DOXYCYCLINE 100MG TABLET PO SCH ×2 (09:54→20:31)
[2020-02-08] MEDS: LIDOCAINE GEL 2%, 5ML TP SCH ×2 (09:54→20:36)
[2020-02-08 19:15] VITALS: BP 122/79
[2020-02-08] MEDS: TRAZODONE 100MG TABLET PO SCH (20:31)
[2020-02-08] MEDS: INSULIN GLARGINE 100 UNITS/ML, PEN SQ-INSULIN SCH (20:32)
[2020-02-09] MEDS: THYROID 30 MG TABLET PO SCH (05:29)
[2020-02-09 07:05] VITALS: BP 119/77
[2020-02-09] MEDS: LORazepam 0.5MG TABLET PO PRN ×2 (08:18→17:12)
[2020-02-09] MEDS: SUCRALFATE 1 GM TABLET PO SCH ×4 (08:18→20:03)
[2020-02-09] MEDS: THIAMINE 100MG TABLET PO SCH (08:18)
[2020-02-09] MEDS: MULTIVITAMIN 1 TABLET PO SCH (08:18)
[2020-02-09] MEDS: SPIRONOLACTONE 25 MG TABLET PO SCH (08:18)
[2020-02-09] MEDS: FUROSEMIDE 20 MG TABLET PO SCH (08:18)
[2020-02-09] MEDS: FLUOXETINE HCL 20 MG CAPSULE PO SCH (08:19)
[2020-02-09] MEDS: ALBUTEROL SULFATE 2.5 MG/3 ML NPPB SCH (09:00)
[2020-02-09] MEDS: DOXYCYCLINE 100MG TABLET PO SCH ×2 (09:18→20:03)
[2020-02-09] MEDS: OXYcodone IR 5MG TABLET PO PRN (09:19)
[2020-02-09] MEDS: LIDOCAINE GEL 2%, 5ML TP SCH ×3 (09:39→21:11)
[2020-02-09] MEDS ORDERED: FLUO20CA23 PO (13:19)
[2020-02-09] MEDS: HYDROXYZINE PAMOATE 50MG CAP PO PRN ×2 (14:57→18:38)
[2020-02-09] MEDS: ACETAMINOPHEN 325 MG TABLET PO PRN ×2 (14:57→20:03)
[2020-02-09 19:15] VITALS: BP 118/75
[2020-02-09] MEDS: TRAZODONE 100MG TABLET PO SCH (20:03)
[2020-02-09] MEDS: INSULIN GLARGINE 100 UNITS/ML, PEN SQ-INSULIN SCH (21:08)
[2020-02-10] MEDS: THYROID 30 MG TABLET PO SCH (05:59)
[2020-02-10 07:37] VITALS: BP 120/75
[2020-02-10] MEDS: SPIRONOLACTONE 25 MG TABLET PO SCH (08:40)
[2020-02-10] MEDS: FUROSEMIDE 20 MG TABLET PO SCH (08:40)
[2020-02-10] MEDS: DOXYCYCLINE 100MG TABLET PO SCH (08:40)
[2020-02-10] MEDS: FLUOXETINE HCL 20 MG CAPSULE PO SCH (08:40)
[2020-02-10] MEDS: THIAMINE 100MG TABLET PO SCH (08:40)
[2020-02-10] MEDS: SUCRALFATE 1 GM TABLET PO SCH ×2 (08:40→11:08)
[2020-02-10] MEDS: MULTIVITAMIN 1 TABLET PO SCH (08:40)
[2020-02-10] MEDS: LIDOCAINE GEL 2%, 5ML TP SCH (08:41)
[2020-02-10] MEDS: LORazepam 0.5MG TABLET PO PRN (08:51)
[2020-02-10] MEDS: ACETAMINOPHEN 325 MG TABLET PO PRN (10:51)
== END 2020-02-10 11:57 | disposition home or self-care (01) | DRG 885 ==
LOC: 3E 14:05
PROVIDERS: ADMIT Psychiatry & Neurology Psychosomatic Medicine; ATTEND Psychiatry & Neurology Psychosomatic Medicine
DX: F33.2 Major depressive disorder, recurrent severe without psychotic features (principal); J15.6 Pneumonia due to other Gram-negative bacteria; E87.1 Hypo-osmolality and hyponatremia; F10.229 Alcohol dependence with intoxication, unspecified; F41.9 Anxiety disorder, unspecified; S20.229A Contusion of unspecified back wall of thorax, initial encounter; W19.XXXA Unspecified fall, initial encounter; E11.9 Type 2 diabetes mellitus without complications; E03.9 Hypothyroidism, unspecified; K21.9 Gastro-esophageal reflux disease without esophagitis; D69.6 Thrombocytopenia, unspecified; F17.210 Nicotine dependence, cigarettes, uncomplicated; Z11.59 Encounter for screening for other viral diseases; Z90.89 Acquired absence of other organs; Z79.899 Other long term (current) drug therapy; Z88.6 Allergy status to analgesic agent; Z88.8 Allergy status to other drugs, medicaments and biological substances; Z82.49 Family history of ischemic heart disease and other diseases of the circulatory system; Z56.0 Unemployment, unspecified
CPT/HCPCS: J7613 ×3; 81003; 82962; 93005; 94640; J1815

== ENCOUNTER 2020-07-18 13:37 | Inpatient (IN) | payer MEDICAID ==
[~2020-07-18] VITALS: Ht 170.2 cm; Wt 88.4 kg
[~2020-07-18 13:37] MED LIST changes: +FLUO20CA23 PO; +MULT-449 PO; -MULT1TAB60 PO; -PANT40TA5 PO; +PANT40TA6 PO
--- NOTE | 2020-07-18 13:44 | NUR ---
PATIENT ARRIVES WITH [facility] WITH COMPLAINTS OF ABDOMINAL PAIN AND BLOATING. PATIENT HAS A LARGE ROUNDED TIGHT TO TOUCH BELLY THAT BEGAN 4 DAYS AGO, THIS IS FIRST TIME. JAUNDICED. PATIENT REPORTS HAD A COLOSTOMY IN PAST BUT WAS REVERSED YEARS AGO. REPORTS NO KNOWN HISTORY OF LIVER ISSUES. PATIENT REPORTS A CASE OF ALCOHOL A DAY BUT HAS TAPERED OFF SOME.
[2020-07-18] MEDS ORDERED: METF500T17 PO (13:57)
[2020-07-18 14:28] LABS: BASOPHILS % (AUTO) 1 % (0-1); EOSINOPHILS % (AUTO) 1 % (1-7); LYMPHOCYTES % (AUTO) 13 % (22-44); MEAN CORPUSCULAR HEMOGLOBIN 38.9 pg (27.5-34.5); MEAN CORPUSCULAR HGB CONC 33.9 g/dL (33.2-36.2); MEAN PLATELET VOLUME 7.6 fL (7.4-10.4); MONOCYTES % (AUTO) 7 % (2-9); NEUTROPHILS % (AUTO) 79 % (42-75); PLATELET COUNT 164 x10^3/uL (130-400); RED BLOOD COUNT 3.26 x10^6/uL (4.38-5.82); RED CELL DISTRIBUTION WIDTH 17.4 % (9.4-14.8)
[2020-07-18] MEDS ORDERED: SODIUM CHLORIDE FLUSH 10ML SYR IVF ONE (14:30)
[2020-07-18 14:37] LABS: ALANINE AMINOTRANSFERASE 37 U/L (12-78); ALBUMIN 1.7 g/dL (3.4-5.0); ANION GAP 11 mmol/L (5-15); CALCIUM 7.8 mg/dL (8.5-10.1); CHLORIDE 102 mmol/L (98-107); CREATININE 0.75 mg/dL (0.7-1.3)
[2020-07-18 14:42] LABS: ALKALINE PHOSPHATASE 153 U/L (45-117); BILIRUBIN,TOTAL 4.4 mg/dL (0.2-1.0); TOTAL PROTEIN 9.4 g/dL (6.4-8.2)
[2020-07-18 14:52] LABS: INTERNATIONAL NORMALIZED RATIO 1.72 (0.93-1.1); PROTHROMBIN TIME 18.1 Seconds (9.6-11.5)
[2020-07-18 14:57] LABS: MD MORPH REVIEW ONLY
[2020-07-18 14:59] LABS: <PLATELET ESTIMATE> ADEQUATE; <PLT MORPHOLOGY> NORMAL PLT MORPH; HYPOCHROMIA 1+
[2020-07-18 15:01] LABS: OVALOCYTES 1+; TARGET CELLS 1+; TEAR DROPS 1+
[2020-07-18] MEDS ORDERED: LIDOCAINE 1%, 10ML ONE (15:19)
--- NOTE | 2020-07-18 15:28 | NUR ---
patient began feeling short of breath and anxious, placed on two liters of oxygen and sat patient up. patient's large abdomen appears to put to much pressure on patients lungs when he lays down, possibly. feelng improved now
[2020-07-18] MEDS ORDERED: SODIUM CHLORIDE 0.9% 1,000ML IVBOLUS ONE ×2 (15:30→17:00)
--- NOTE | 2020-07-18 15:49 | NUR ---
consent signed for paracentesis and patient being kept npo. in bed. on oxygen. rails up. urine sent.
[2020-07-18 16:02] LABS: MICROSCOPIC INDICATED
--- NOTE | 2020-07-18 16:16 | NUR ---
PATIENT IN US GETTING PARACENTESIS THEN WILL MEDICATE
--- NOTE | 2020-07-18 16:24 | NUR ---
PATIENT RETURNED FROM PARACENTESIS. DISCUSSED WITH GENEVIEVE RIVAS AND TB CANCELLED NO SOURCE INFECTION
[2020-07-18] MEDS ORDERED: CEFTRIAXONE PMX 1GM/50ML 50 ML IV ONE ×2 (16:30→17:30)
--- NOTE | 2020-07-18 16:32 | NUR ---
PATIENT NOT FEELING WELL. LET MD KNOW
--- NOTE | 2020-07-18 16:53 | NUR ---
PATIENT IN CT THEN WILL GIVE ROCEPHEN
[2020-07-18] MEDS ORDERED: CEFTRIAXONE PMX 1GM/50ML 50 ML ONE (16:54)
[2020-07-18] MEDS ORDERED: OMNIPAQUE 350 MG/ML, 100ML BOTTLE ONE (17:08)
[2020-07-18] MEDS ORDERED: HYDROmorphone 1 MG/ML, 1ML INJ ONE (17:32)
[2020-07-18] MEDS: HYDROmorphone 2 MG/ML, 1ML IVPush PRN ×2 (17:34→17:55)
--- NOTE | 2020-07-18 17:35 | NUR ---
PATIENT HAVING 9 OF 10 PAIN IN ABDOMEN. LET MD KNOW AND GOT ORDER FOR AND GAVE DILAUDID.
[2020-07-18] MEDS ORDERED: METRONIDAZOLE PMX 500MG/100ML 100 ML ONE (17:58)
[2020-07-18] MEDS: METRONIDAZOLE PMX 500MG/100ML 100 ML IV SCH (17:59)
[2020-07-18] MEDS: HEPARIN 5,000 UNITS/ML, 1ML SQ SCH (18:00)
[2020-07-18] MEDS ORDERED: DOCUSATE 100 MG CAPSULE PO PRN (18:00)
[2020-07-18] MEDS ORDERED: INSULIN LISPRO 100 UNITS/ML, PEN SQ-INSULIN SCH (18:00)
[2020-07-18] MEDS ORDERED: CEFTRIAXONE PMX 1GM/50ML 50 ML IV SCH (18:00)
[2020-07-18] MEDS ORDERED: POLYETHYLENE GLYCOL 17 GM PACKET PO PRN (18:00)
[2020-07-18] MEDS ORDERED: ONDANSETRON 2MG/ML, 2ML IVPush PRN (18:00)
[2020-07-18] MEDS ORDERED: HEPARIN 5,000 UNITS/ML, 1ML ONE (18:07)
--- NOTE | 2020-07-18 18:10 | NUR ---
FSBS 125
[2020-07-18] MEDS: SODIUM CHLORIDE 0.9% 1,000 ML IV SCH (18:12)
--- NOTE | 2020-07-18 18:31 | NUR ---
CALLED JOSELINE THE ORDEREDING PHYSICIAN TO ALERT HIM THAT PATIENT'S PT 18.1 AND INR 1.72 AND APTT 38, PROCEED WITH HEPARIN? YES. WILL GIVE. ALSO TO ALERT HIM THAT PATIENT HR IS UP TO 145, PATIENT "FEELS AWFUL" AND IS BARFING. HE ORDERED 12 LEAD AND WILL GIVE ZOFRAN.
[2020-07-18] MEDS ORDERED: ONDANSETRON 2MG/ML, 2ML ONE (18:40)
--- NOTE | 2020-07-18 19:06 | NUR ---
EKG DONE, SINUS TACH. PATIENT STILL HAS NAUSEA AFTER ZOFRAN. NO INSULIN COVERAGE ON LOW SCALE FOR FSBS 125 ACCORDING TO PHARMACY.
--- NOTE | 2020-07-18 19:14 | NUR ---
PATIENT REPORT TO MELVIN SMYTH. PATIENT JUST ALERTED ME DIFFICULTY URINATING FEELING HE HAS TO GO, LET LIBRA CHARLES KNOW THAT AND THAT MAYBE HE NEEDS CATHETER? PATIENT LEAVING FOR UPSTAIRS. HE IS AOX4,CALM, AND NOT THROWING UP AT THIS TIME.
[2020-07-18 19:44] VITALS: BP 165/96
[2020-07-18] MEDS: INSULIN LISPRO 100 UNITS/ML, PEN LOW DOSE SS SQ-INSULIN SCH (21:42)
[2020-07-18] MEDS: metFORMIN 500 MG TABLET PO SCH (21:43)
[2020-07-18] MEDS: TRAZODONE 100MG TABLET PO SCH (21:43)
[2020-07-18] MEDS: ALBUTEROL HFA 90 MCG/SPRAY INH SCH (21:43)
[2020-07-18] MEDS: QUETIAPINE 100MG TABLET PO SCH (21:43)
[2020-07-18] MEDS: INSULIN GLARGINE 100 UNITS/ML, PEN SQ-INSULIN SCH (21:44)
[2020-07-18] MEDS: morphine SULFATE 10 MG/ML, 1ML IVPush PRN (22:11)
[2020-07-19 01:59] VITALS: BP 129/78
[2020-07-19] MEDS: METRONIDAZOLE PMX 500MG/100ML 100 ML IV SCH ×3 (02:21→17:17)
[2020-07-19] MEDS: HEPARIN 5,000 UNITS/ML, 1ML SQ SCH ×2 (02:21→09:18)
[2020-07-19] MEDS: ALBUTEROL HFA 90 MCG/SPRAY INH SCH ×4 (03:11→20:27)
[2020-07-19] MEDS: morphine SULFATE 10 MG/ML, 1ML IVPush PRN ×2 (03:12→18:39)
[2020-07-19] MEDS: SODIUM CHLORIDE 0.9% 1,000 ML IV SCH ×2 (05:15→15:39)
[2020-07-19] MEDS: LEVOTHYROXINE 75 MCG TABLET PO SCH (05:15)
[2020-07-19] MEDS ORDERED: LORazepam 2 MG/ML, 1ML IVPush ONE (05:30)
[2020-07-19 06:44] LABS: BASOPHILS % (AUTO) 1 % (0-1); EOSINOPHILS % (AUTO) 2 % (1-7); LYMPHOCYTES % (AUTO) 17 % (22-44); MEAN CORPUSCULAR HEMOGLOBIN 38.9 pg (27.5-34.5); MEAN CORPUSCULAR HGB CONC 33.8 g/dL (33.2-36.2); MEAN PLATELET VOLUME 7.5 fL (7.4-10.4); MONOCYTES % (AUTO) 11 % (2-9); NEUTROPHILS % (AUTO) 69 % (42-75); PLATELET COUNT 110 x10^3/uL (130-400); RED BLOOD COUNT 2.61 x10^6/uL (4.38-5.82); RED CELL DISTRIBUTION WIDTH 17.6 % (9.4-14.8)
[2020-07-19 06:54] LABS: ALANINE AMINOTRANSFERASE 32 U/L (12-78); ALBUMIN 1.5 g/dL (3.4-5.0); ANION GAP 16 mmol/L (5-15); CALCIUM 7.7 mg/dL (8.5-10.1); CHLORIDE 104 mmol/L (98-107)
[2020-07-19 06:57] LABS: ALKALINE PHOSPHATASE 124 U/L (45-117); BILIRUBIN,TOTAL 3.5 mg/dL (0.2-1.0); CREATININE 0.68 mg/dL (0.7-1.3); TOTAL PROTEIN 7.9 g/dL (6.4-8.2)
[2020-07-19 07:29] LABS: MD NO
[2020-07-19 07:45] VITALS: BP 110/74
[2020-07-19] MEDS ORDERED: FUROSEMIDE 20 MG TABLET PO SCH (09:00)
[2020-07-19] MEDS: INSULIN LISPRO 100 UNITS/ML, PEN LOW DOSE SS SQ-INSULIN SCH ×4 (09:16→21:26)
[2020-07-19] MEDS: POTASSIUM CHLORIDE 20 MEQ TAB.ER.PRT PO SCH (09:17)
[2020-07-19] MEDS: THIAMINE 100MG TABLET PO SCH (09:17)
[2020-07-19] MEDS: FLUOXETINE HCL 20 MG CAPSULE PO SCH (09:17)
[2020-07-19] MEDS: FOLIC ACID 1 MG TABLET PO SCH (09:17)
[2020-07-19] MEDS: MULTIVITAMIN 1 TABLET PO SCH (09:17)
[2020-07-19] MEDS: metFORMIN 500 MG TABLET PO SCH (09:17)
[2020-07-19] MEDS ORDERED: LACTATED RINGERS 1,000 ML IVBOLUS ONE (10:00)
[2020-07-19 10:04] VITALS: BP 122/73
[2020-07-19] MEDS ORDERED: VANCOMYCIN PER PHARMACY MC PRN (10:30)
[2020-07-19] MEDS ORDERED: PHARMACOKINETIC CONSULTATION MC ONE (11:00)
[2020-07-19] MEDS ORDERED: PHARMACOKINETIC MONITORING MC PRN (11:00)
[2020-07-19] MEDS ORDERED: VANCOMYCIN 2,100 MG in SODIUM CHLORIDE 0.9% 500 ML IV ONE (11:30)
[2020-07-19] MEDS: PIPERACILLIN/TAZO/PMX 3.375GM 50 ML IV SCH ×3 (11:43→23:37)
[2020-07-19 11:47] VITALS: BP 131/84
[2020-07-19] MEDS ORDERED: LIDOCAINE 1%, 10ML ONE (13:29)
[2020-07-19 14:00] VITALS: BP 120/68
[2020-07-19] MEDS: BISACODYL 5 MG EC TABLET PO SCH (16:47)
[2020-07-19 18:47] VITALS: BP 126/73
[2020-07-19] MEDS: QUETIAPINE 100MG TABLET PO SCH (21:25)
[2020-07-19] MEDS: INSULIN GLARGINE 100 UNITS/ML, PEN SQ-INSULIN SCH (21:26)
[2020-07-19] MEDS: TRAZODONE 100MG TABLET PO SCH (21:26)
[2020-07-20 00:08] VITALS: BP 115/74
[2020-07-20] MEDS: VANCOMYCIN 1,700 MG in SODIUM CHLORIDE 0.9% 250 ML IV SCH ×3 (00:12→23:20)
[2020-07-20] MEDS: ALBUTEROL HFA 90 MCG/SPRAY INH SCH ×4 (02:21→19:10)
[2020-07-20] MEDS: METRONIDAZOLE PMX 500MG/100ML 100 ML IV SCH ×3 (02:21→17:42)
[2020-07-20] MEDS: SODIUM CHLORIDE 0.9% 1,000 ML IV SCH ×2 (02:21→17:42)
[2020-07-20] MEDS: LEVOTHYROXINE 75 MCG TABLET PO SCH (05:45)
[2020-07-20] MEDS: PIPERACILLIN/TAZO/PMX 3.375GM 50 ML IV SCH ×3 (05:45→19:47)
[2020-07-20 06:50] VITALS: BP 127/85
[2020-07-20] MEDS: INSULIN LISPRO 100 UNITS/ML, PEN LOW DOSE SS SQ-INSULIN SCH ×4 (07:00→21:00)
[2020-07-20] MEDS: FLUOXETINE HCL 20 MG CAPSULE PO SCH (07:58)
[2020-07-20] MEDS: MULTIVITAMIN 1 TABLET PO SCH (07:58)
[2020-07-20] MEDS: THIAMINE 100MG TABLET PO SCH (07:58)
[2020-07-20] MEDS: BISACODYL 5 MG EC TABLET PO SCH (07:59)
[2020-07-20] MEDS: FOLIC ACID 1 MG TABLET PO SCH (08:00)
[2020-07-20] MEDS: POTASSIUM CHLORIDE 20 MEQ TAB.ER.PRT PO SCH (08:00)
[2020-07-20 12:15] VITALS: BP 127/82
[2020-07-20] MEDS ORDERED: ALBUMIN HUMAN 25% 100 ML IV ONE (12:30)
[2020-07-20] MEDS ORDERED: LIDOCAINE 1%, 10ML ONE (14:01)
[2020-07-20] MEDS: morphine SULFATE 10 MG/ML, 1ML IVPush PRN ×2 (15:34→19:48)
[2020-07-20] MEDS: MOVIPREP POWDER 1 PREP KIT PO SCH (15:56)
[2020-07-20 18:50] VITALS: BP 147/78
[2020-07-20] MEDS: TRAZODONE 100MG TABLET PO SCH (19:46)
[2020-07-20] MEDS: QUETIAPINE 100MG TABLET PO SCH (19:46)
[2020-07-20] MEDS: INSULIN GLARGINE 100 UNITS/ML, PEN SQ-INSULIN SCH (20:42)
[2020-07-21 00:35] VITALS: BP 109/71
[2020-07-21] MEDS: morphine SULFATE 10 MG/ML, 1ML IVPush PRN ×2 (01:15→18:13)
[2020-07-21] MEDS: PIPERACILLIN/TAZO/PMX 3.375GM 50 ML IV SCH ×4 (01:16→18:13)
[2020-07-21] MEDS: ALBUTEROL HFA 90 MCG/SPRAY INH SCH ×4 (03:15→20:12)
[2020-07-21] MEDS: MOVIPREP POWDER 1 PREP KIT PO SCH (04:00)
[2020-07-21] MEDS: METRONIDAZOLE PMX 500MG/100ML 100 ML IV SCH ×3 (04:00→17:24)
[2020-07-21] MEDS: LEVOTHYROXINE 75 MCG TABLET PO SCH (05:16)
[2020-07-21 06:21] LABS: ALBUMIN 1.8 g/dL (3.4-5.0); ANION GAP 7 mmol/L (5-15); CALCIUM 7.8 mg/dL (8.5-10.1); CHLORIDE 104 mmol/L (98-107)
[2020-07-21 06:24] LABS: BASOPHILS % (AUTO) 1 % (0-1); EOSINOPHILS % (AUTO) 2 % (1-7); LYMPHOCYTES % (AUTO) 14 % (22-44); MEAN CORPUSCULAR HEMOGLOBIN 39.1 pg (27.5-34.5); MEAN CORPUSCULAR HGB CONC 33.7 g/dL (33.2-36.2); MEAN PLATELET VOLUME 8.6 fL (7.4-10.4); MONOCYTES % (AUTO) 9 % (2-9); NEUTROPHILS % (AUTO) 75 % (42-75); PLATELET COUNT 89 x10^3/uL (130-400); RED BLOOD COUNT 2.55 x10^6/uL (4.38-5.82); RED CELL DISTRIBUTION WIDTH 16.9 % (9.4-14.8)
[2020-07-21 06:26] LABS: ALANINE AMINOTRANSFERASE 29 U/L (12-78); ALKALINE PHOSPHATASE 102 U/L (45-117); BILIRUBIN,TOTAL 5.9 mg/dL (0.2-1.0); CREATININE 0.76 mg/dL (0.7-1.3); TOTAL PROTEIN 7.8 g/dL (6.4-8.2)
[2020-07-21] MEDS: INSULIN LISPRO 100 UNITS/ML, PEN LOW DOSE SS SQ-INSULIN SCH ×4 (06:29→20:12)
[2020-07-21 07:12] LABS: MD SCAN
[2020-07-21] MEDS ORDERED: CHLORHEXIDINE 15 ML UDC MM ONE ×2 (07:30→08:00)
[2020-07-21] MEDS ORDERED: LIDOCAINE 1%, 10ML ONE (07:54)
[2020-07-21] MEDS ORDERED: PROPOFOL 10 MG/ML, 20ML ONE (07:54)
[2020-07-21] MEDS ORDERED: PROPOFOL 10 MG/ML, 50ML ONE (07:54)
[2020-07-21] MEDS ORDERED: ALBUTEROL SULFATE 2.5 MG/3 ML NPPB PRN (08:00)
[2020-07-21] MEDS ORDERED: LABETALOL 5MG/ML, 20ML IV PRN (08:00)
[2020-07-21] MEDS ORDERED: ONDANSETRON 2MG/ML, 2ML IVPush PRN (08:00)
[2020-07-21] MEDS ORDERED: OXYcodone 5 MG/5 ML ORAL.SOL UDC PO PRN (08:00)
[2020-07-21] MEDS ORDERED: MIDAZOLAM 1 MG/ML, 2ML IV PRN (08:00)
[2020-07-21] MEDS ORDERED: FENTANYL PF 100 MCG/2ML IV PRN (08:00)
[2020-07-21] MEDS: BISACODYL 5 MG EC TABLET PO SCH (08:21)
[2020-07-21] MEDS: FOLIC ACID 1 MG TABLET PO SCH (08:22)
[2020-07-21] MEDS: THIAMINE 100MG TABLET PO SCH (08:22)
[2020-07-21] MEDS: MULTIVITAMIN 1 TABLET PO SCH (08:22)
[2020-07-21 09:32] VITALS: BP 115/82
[2020-07-21] MEDS: OMEPRAZOLE 20 MG CAPSULE.DR PO SCH (09:55)
[2020-07-21] MEDS: FLUOXETINE HCL 20 MG CAPSULE PO SCH (09:55)
[2020-07-21] MEDS: POTASSIUM CHLORIDE 20 MEQ TAB.ER.PRT PO SCH ×2 (09:55→20:10)
[2020-07-21] MEDS: DICYCLOMINE 10 MG CAPSULE PO SCH ×2 (11:52→16:21)
[2020-07-21] MEDS: SODIUM CHLORIDE 0.9% 1,000 ML IV SCH (11:53)
[2020-07-21 12:12] VITALS: BP 102/70
[2020-07-21] MEDS ORDERED: MAGNESIUM SULFATE PMX 4GM/100M 100 ML IVPB ONE (19:30)
[2020-07-21 19:45] VITALS: BP 99/64
[2020-07-21] MEDS: QUETIAPINE 100MG TABLET PO SCH (20:10)
[2020-07-21] MEDS: TRAZODONE 100MG TABLET PO SCH (20:10)
[2020-07-21] MEDS: INSULIN GLARGINE 100 UNITS/ML, PEN SQ-INSULIN SCH (20:11)
[2020-07-22] MEDS: PIPERACILLIN/TAZO/PMX 3.375GM 50 ML IV SCH ×3 (00:31→12:32)
[2020-07-22] MEDS: morphine SULFATE 10 MG/ML, 1ML IVPush PRN ×4 (00:39→21:35)
[2020-07-22] MEDS: POTASSIUM CHLORIDE 20 MEQ TAB.ER.PRT PO SCH ×2 (01:10→08:03)
[2020-07-22 01:16] VITALS: BP 104/69
[2020-07-22] MEDS: METRONIDAZOLE PMX 500MG/100ML 100 ML IV SCH ×2 (02:04→09:51)
[2020-07-22] MEDS: ALBUTEROL HFA 90 MCG/SPRAY INH SCH ×4 (02:05→20:38)
[2020-07-22 04:23] LABS: BASOPHILS % (AUTO) 1 % (0-1); EOSINOPHILS % (AUTO) 3 % (1-7); LYMPHOCYTES % (AUTO) 19 % (22-44); MEAN CORPUSCULAR HEMOGLOBIN 38.7 pg (27.5-34.5); MEAN CORPUSCULAR HGB CONC 33.6 g/dL (33.2-36.2); MEAN PLATELET VOLUME 8.3 fL (7.4-10.4); MONOCYTES % (AUTO) 9 % (2-9); NEUTROPHILS % (AUTO) 67 % (42-75); PLATELET COUNT 80 x10^3/uL (130-400); RED BLOOD COUNT 2.54 x10^6/uL (4.38-5.82); RED CELL DISTRIBUTION WIDTH 16.8 % (9.4-14.8)
[2020-07-22 04:36] LABS: CHLORIDE 103 mmol/L (98-107)
[2020-07-22 04:44] LABS: ALANINE AMINOTRANSFERASE 25 U/L (12-78); ALBUMIN 1.6 g/dL (3.4-5.0); ALKALINE PHOSPHATASE 102 U/L (45-117); ANION GAP 5 mmol/L (5-15); BILIRUBIN,TOTAL 3.6 mg/dL (0.2-1.0); CALCIUM 7.5 mg/dL (8.5-10.1); CREATININE 1.26 mg/dL (0.7-1.3); TOTAL PROTEIN 7.1 g/dL (6.4-8.2); VANCOMYCIN,TROUGH 21.9 mcg/mL (5.0-10.0)
[2020-07-22] MEDS: LEVOTHYROXINE 75 MCG TABLET PO SCH (05:44)
[2020-07-22] MEDS: OMEPRAZOLE 20 MG CAPSULE.DR PO SCH (05:44)
[2020-07-22 05:55] LABS: MD SCAN
[2020-07-22 07:41] VITALS: BP 95/62
[2020-07-22] MEDS: INSULIN LISPRO 100 UNITS/ML, PEN LOW DOSE SS SQ-INSULIN SCH ×4 (07:51→20:38)
[2020-07-22] MEDS: MAGNESIUM OXIDE 400 MG TABLET PO SCH (08:03)
[2020-07-22] MEDS: DICYCLOMINE 10 MG CAPSULE PO SCH ×3 (08:03→16:09)
[2020-07-22] MEDS: FLUOXETINE HCL 20 MG CAPSULE PO SCH (08:03)
[2020-07-22] MEDS: FOLIC ACID 1 MG TABLET PO SCH (08:03)
[2020-07-22] MEDS: THIAMINE 100MG TABLET PO SCH (08:03)
[2020-07-22] MEDS: MULTIVITAMIN 1 TABLET PO SCH (08:04)
[2020-07-22] MEDS: SODIUM CHLORIDE 0.9% 1,000 ML IV SCH (09:51)
[2020-07-22 13:44] VITALS: BP 95/66
[2020-07-22] MEDS: FUROSEMIDE 40 MG TABLET PO SCH (14:23)
[2020-07-22] MEDS: SPIRONOLACTONE 50 MG TABLET PO SCH (14:23)
[2020-07-22] MEDS: LACTOBACILLUS CHEW TABLET PO SCH ×2 (15:03→20:36)
[2020-07-22] MEDS: CEFTRIAXONE PMX 1GM/50ML 50 ML IV SCH (15:03)
[2020-07-22] MEDS ORDERED: VANCOMYCIN 1,700 MG in SODIUM CHLORIDE 0.9% 250 ML IV SCH (16:00)
[2020-07-22 19:23] VITALS: BP 107/66
[2020-07-22] MEDS: QUETIAPINE 100MG TABLET PO SCH (20:36)
[2020-07-22] MEDS: TRAZODONE 100MG TABLET PO SCH (20:36)
[2020-07-22] MEDS: INSULIN GLARGINE 100 UNITS/ML, PEN SQ-INSULIN SCH (20:37)
[2020-07-23 00:45] VITALS: BP 98/65
[2020-07-23] MEDS: ALBUTEROL HFA 90 MCG/SPRAY INH SCH ×4 (03:03→20:23)
[2020-07-23] MEDS: LEVOTHYROXINE 75 MCG TABLET PO SCH (06:04)
[2020-07-23] MEDS: LACTOBACILLUS CHEW TABLET PO SCH ×4 (06:05→21:18)
[2020-07-23] MEDS: OMEPRAZOLE 20 MG CAPSULE.DR PO SCH (06:05)
[2020-07-23] MEDS: morphine SULFATE 10 MG/ML, 1ML IVPush PRN ×2 (06:05→10:26)
[2020-07-23] MEDS: SODIUM CHLORIDE 0.9% 1,000 ML IV SCH (06:06)
[2020-07-23 06:13] LABS: CHLORIDE 105 mmol/L (98-107)
[2020-07-23 06:23] LABS: ANION GAP 7 mmol/L (5-15); CALCIUM 7.6 mg/dL (8.5-10.1); CREATININE 1.04 mg/dL (0.7-1.3)
[2020-07-23 06:56] VITALS: BP 90/66
[2020-07-23] MEDS ORDERED: POTASSIUM CHLORIDE 20 MEQ TAB.ER.PRT PO ONE (07:00)
[2020-07-23] MEDS: INSULIN LISPRO 100 UNITS/ML, PEN LOW DOSE SS SQ-INSULIN SCH ×4 (08:13→21:17)
[2020-07-23] MEDS: MULTIVITAMIN 1 TABLET PO SCH (08:29)
[2020-07-23] MEDS: DICYCLOMINE 10 MG CAPSULE PO SCH ×3 (08:29→17:04)
[2020-07-23] MEDS: MAGNESIUM OXIDE 400 MG TABLET PO SCH (08:30)
[2020-07-23] MEDS: FLUOXETINE HCL 20 MG CAPSULE PO SCH (08:30)
[2020-07-23] MEDS: THIAMINE 100MG TABLET PO SCH (08:30)
[2020-07-23] MEDS: FOLIC ACID 1 MG TABLET PO SCH (08:30)
[2020-07-23] MEDS: FUROSEMIDE 40 MG TABLET PO SCH (10:25)
[2020-07-23] MEDS: SPIRONOLACTONE 50 MG TABLET PO SCH (10:25)
[2020-07-23 12:44] VITALS: BP 109/72
[2020-07-23] MEDS ORDERED: MAGN400T50 PO (15:24)
[2020-07-23] MEDS ORDERED: CEFT1FRO2 IVPB (15:24)
[2020-07-23] MEDS ORDERED: FURO40TA6 PO (15:24)
[2020-07-23] MEDS ORDERED: INSU100I13 SQ-INSULIN (15:24)
[2020-07-23] MEDS ORDERED: DICY10CA3 PO (15:24)
[2020-07-23] MEDS ORDERED: SPIR50TA PO (15:24)
[2020-07-23] MEDS ORDERED: OMEP-110 PO (15:24)
[2020-07-23] MEDS ORDERED: ACID1TAB7 PO (15:24)
[2020-07-23] MEDS ORDERED: INSU100I11 SQ-INSULIN (15:24)
[2020-07-23] MEDS: CEFTRIAXONE PMX 1GM/50ML 50 ML IV SCH (15:55)
[2020-07-23 18:53] VITALS: BP 100/65
[2020-07-23] MEDS: OXYcodone IR 5MG TABLET PO PRN (21:16)
[2020-07-23] MEDS: QUETIAPINE 100MG TABLET PO SCH (21:17)
[2020-07-23] MEDS: TRAZODONE 100MG TABLET PO SCH (21:18)
[2020-07-23] MEDS: INSULIN GLARGINE 100 UNITS/ML, PEN SQ-INSULIN SCH (21:19)
[2020-07-24 00:46] VITALS: BP 105/77
[2020-07-24 05:19] LABS: CHLORIDE 106 mmol/L (98-107)
[2020-07-24 05:34] LABS: ANION GAP 6 mmol/L (5-15); CALCIUM 7.9 mg/dL (8.5-10.1); CREATININE 0.84 mg/dL (0.7-1.3)
[2020-07-24] MEDS: LACTOBACILLUS CHEW TABLET PO SCH ×2 (05:56→11:30)
[2020-07-24] MEDS: OMEPRAZOLE 20 MG CAPSULE.DR PO SCH (05:56)
[2020-07-24] MEDS: LEVOTHYROXINE 75 MCG TABLET PO SCH (05:57)
[2020-07-24 07:37] VITALS: BP 108/69
[2020-07-24] MEDS: SPIRONOLACTONE 50 MG TABLET PO SCH (08:03)
[2020-07-24] MEDS: INSULIN LISPRO 100 UNITS/ML, PEN LOW DOSE SS SQ-INSULIN SCH ×2 (08:03→11:30)
[2020-07-24] MEDS: MAGNESIUM OXIDE 400 MG TABLET PO SCH (08:03)
[2020-07-24] MEDS: DICYCLOMINE 10 MG CAPSULE PO SCH ×2 (08:03→11:38)
[2020-07-24] MEDS: THIAMINE 100MG TABLET PO SCH (08:04)
[2020-07-24] MEDS: FLUOXETINE HCL 20 MG CAPSULE PO SCH (08:04)
[2020-07-24] MEDS: FUROSEMIDE 40 MG TABLET PO SCH (08:04)
[2020-07-24] MEDS: MULTIVITAMIN 1 TABLET PO SCH (08:04)
[2020-07-24] MEDS: FOLIC ACID 1 MG TABLET PO SCH (08:04)
[2020-07-24] MEDS: ALBUTEROL HFA 90 MCG/SPRAY INH SCH (08:43)
[2020-07-24] MEDS ORDERED: LIDOCAINE 1%, 10ML ONE (10:02)
[2020-07-24] MEDS ORDERED: OXYC5TAB3 PO (11:24)
[2020-07-24] MEDS: OXYcodone IR 5MG TABLET PO PRN (11:38)
[2020-07-24 12:11] VITALS: BP 99/66
[2020-07-24] MEDS ORDERED: FLU VACC QS2020-21(6MOS UP)/PF 60MCG/0.5 ML SYR IM-VACC ONE (13:00)
== END 2020-07-24 13:07 | DRG 871 ==
LOC: ED 14:42 → EDIP 17:16 → 4WST 19:53
PROVIDERS: ADMIT Family Medicine; ATTEND Internal Medicine
PROC: 0W9G3ZZ Drainage of Peritoneal Cavity, Percutaneous Approach (ICD-10-PCS; principal; 2020-07-19)
PROC: 0W9G3ZZ Drainage of Peritoneal Cavity, Percutaneous Approach (ICD-10-PCS; 2020-07-20)
PROC: 0DB98ZX Excision of Duodenum, Via Natural or Artificial Opening Endoscopic, Diagnostic (ICD-10-PCS; 2020-07-21)
PROC: 0DB68ZX Excision of Stomach, Via Natural or Artificial Opening Endoscopic, Diagnostic (ICD-10-PCS; 2020-07-21)
PROC: 0DBC8ZX Excision of Ileocecal Valve, Via Natural or Artificial Opening Endoscopic, Diagnostic (ICD-10-PCS; 2020-07-21)
DX: A41.9 Sepsis, unspecified organism (principal); E43 Unspecified severe protein-calorie malnutrition; K65.2 Spontaneous bacterial peritonitis; S06.9X9A Unspecified intracranial injury with loss of consciousness of unspecified duration, initial encounter; D68.9 Coagulation defect, unspecified; E87.1 Hypo-osmolality and hyponatremia; E87.2 Acidosis; K76.6 Portal hypertension; D53.9 Nutritional anemia, unspecified; Z20.828 Contact with and (suspected) exposure to other viral communicable diseases; D69.6 Thrombocytopenia, unspecified; E03.9 Hypothyroidism, unspecified; E11.65 Type 2 diabetes mellitus with hyperglycemia; E83.42 Hypomagnesemia; E87.6 Hypokalemia; F10.10 Alcohol abuse, uncomplicated; F17.210 Nicotine dependence, cigarettes, uncomplicated; F32.9 Major depressive disorder, single episode, unspecified; G89.29 Other chronic pain; I10 Essential (primary) hypertension; K29.40 Chronic atrophic gastritis without bleeding; K52.9 Noninfective gastroenteritis and colitis, unspecified; K57.30 Diverticulosis of large intestine without perforation or abscess without bleeding; K64.1 Second degree hemorrhoids; K70.11 Alcoholic hepatitis with ascites; E66.9 Obesity, unspecified; J32.9 Chronic sinusitis, unspecified; K70.31 Alcoholic cirrhosis of liver with ascites; Z23 Encounter for immunization; Y93.89 Activity, other specified; Z68.30 Body mass index [BMI] 30.0-30.9, adult; Z79.4 Long term (current) use of insulin; Z82.49 Family history of ischemic heart disease and other diseases of the circulatory system; Z93.3 Colostomy status; Y92.89 Other specified places as the place of occurrence of the external cause; Y99.8 Other external cause status; Z88.6 Allergy status to analgesic agent
CPT/HCPCS: 36415; 89051; 96365; 96366; 99291; J3490; 49083; 71045; 74177; 80048; 80053; 80202; 81001; 82607; 82962; 83036; 83605; 83615; 83690; 83735; 83880; 84100; 84443; 85025; 85610; 85730; 87040; 87070; 87086; 87205; 87635; 88305; 93005; 94640; G0378; J0696; J1170; J1644; J2405; J2543; J2704; J3370; P9047; Q9967; J1815; J2060; J2270; J3475; J7030; J7040; J7050; J7120

== ENCOUNTER 2020-07-27 10:04 | Emergency (ER) | payer MEDICAID ==
[~2020-07-27] VITALS: Ht 172.7 cm; Wt 91.0 kg
[~2020-07-27 10:04] MED LIST changes: +ACID1TAB7 PO; +CEFT1FRO2 IVPB; +DICY10CA3 PO; +FURO40TA6 PO; +MAGN400T50 PO; +METF500T17 PO; +OMEP-110 PO; +OXYC5TAB3 PO; +SPIR50TA PO
--- NOTE | 2020-07-27 10:20 | NUR ---
pt a&o to self, not place, year, not specific time. helene notified, plan for ammonia level and paracentesis. as
[2020-07-27] MEDS ORDERED: LIDOCAINE 1%, 10ML ONE (10:34)
[2020-07-27 10:58] LABS: BASOPHILS % (AUTO) 1 % (0-1); EOSINOPHILS % (AUTO) 1 % (1-7); LYMPHOCYTES % (AUTO) 17 % (22-44); MEAN CORPUSCULAR HEMOGLOBIN 39.4 pg (27.5-34.5); MEAN CORPUSCULAR HGB CONC 34.2 g/dL (33.2-36.2); MEAN PLATELET VOLUME 7.6 fL (7.4-10.4); MONOCYTES % (AUTO) 18 % (2-9); NEUTROPHILS % (AUTO) 64 % (42-75); PLATELET COUNT 109 x10^3/uL (130-400); RED BLOOD COUNT 2.41 x10^6/uL (4.38-5.82); RED CELL DISTRIBUTION WIDTH 17.5 % (9.4-14.8)
--- NOTE | 2020-07-27 10:59 | NUR ---
a&ox2 baseline per faciltiy nurse pérez. no hx stroke. dr consent obtained for paracentesis, IR notified. vss. as
--- NOTE | 2020-07-27 11:01 | NUR ---
to IR . as
[2020-07-27 11:06] LABS: MD NO
[2020-07-27 11:17] LABS: ALANINE AMINOTRANSFERASE 23 U/L (12-78); ALBUMIN 1.7 g/dL (3.4-5.0); ANION GAP 7 mmol/L (5-15); CALCIUM 8.2 mg/dL (8.5-10.1); CHLORIDE 103 mmol/L (98-107); CREATININE 0.92 mg/dL (0.7-1.3)
[2020-07-27 11:19] LABS: ALKALINE PHOSPHATASE 102 U/L (45-117); BILIRUBIN,TOTAL 2.6 mg/dL (0.2-1.0); TOTAL PROTEIN 7.1 g/dL (6.4-8.2)
--- NOTE | 2020-07-27 11:44 | NUR ---
back from ir, plan for lactulose, vss. as
[2020-07-27] MEDS ORDERED: MAGNESIUM SULFATE PMX 2GM/50ML 50 ML IV ONE (12:00)
[2020-07-27] MEDS ORDERED: LACTULOSE 20 GM/30 ML UDC PO ONE (12:00)
[2020-07-27] MEDS ORDERED: MAGNESIUM SULFATE PMX 2GM/50ML 50 ML ONE (12:04)
--- NOTE | 2020-07-27 12:28 | NUR ---
piv est mag infusing lactulose req from pharm. voided in urinal. pt angry, mumbles, attempt to get up to smoke cig. reoriented. fall precs. vss. as
--- NOTE | 2020-07-27 13:33 | NUR ---
GIVEN LACTULOSE, DELAY D/T PHARMACY NOT SENDING IT.
--- NOTE | 2020-07-27 13:38 | NUR ---
ROBERT IN ROOM. PT SPEAKING MORE CLEARLY. PLAN FOR DC BACK TO FACILITY AFTER MAG.
--- NOTE | 2020-07-27 14:01 | NUR ---
BEDSIDE REPORT FROM MELVIN SHEPHERD. PT SITTING IN BED, ALERT WHEN SPOKEN TO. ANSWERS QUESTIONS APPROPRIATELY. NADN, RESPIRATIONS EVEN AND UNLABORED.
--- NOTE | 2020-07-27 14:01 | NUR ---
REPORT TO ESTRELLITA CHARLES. THROUGHPUT ARRANGING WHEELCHAIR RIDE.
--- NOTE | 2020-07-27 15:20 | NUR ---
PT REPOSITIONED IN BED. PROVIDED WITH URINAL AND REMOTE AT REQUEST. ALL NEEDS MET AT THIS TIME.
[2020-07-27 16:11] VITALS: BP 90/58
[2020-07-28 14:13] LABS: CELLS COUNTED 94
== END 2020-07-27 16:13 | disposition home or self-care (01) ==
LOC: ED 16:10
DX: K70.31 Alcoholic cirrhosis of liver with ascites (principal); R10.84 Generalized abdominal pain; E11.9 Type 2 diabetes mellitus without complications; E78.5 Hyperlipidemia, unspecified; E78.00 Pure hypercholesterolemia, unspecified; Z88.9 Allergy status to unspecified drugs, medicaments and biological substances; Z79.899 Other long term (current) drug therapy
CPT/HCPCS: 36415; 49083; 80053; 82042; 82140; 83615; 83735; 85025; 87070; 87205; 89051; 96365; 99285; J3475; J3490

== ENCOUNTER 2020-07-29 16:10 | Inpatient (IN) | payer MEDICAID ==
[~2020-07-29] VITALS: Ht 170.2 cm; Wt 94.6 kg
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
--- NOTE | 2020-07-29 17:28 | NUR ---
dentures lab technician at bedside.
[2020-07-29 17:50] LABS: INTERNATIONAL NORMALIZED RATIO 1.82 (0.93-1.1); PROTHROMBIN TIME 19.2 Seconds (9.6-11.5)
[2020-07-29 17:52] LABS: ALANINE AMINOTRANSFERASE 24 U/L (12-78); ALBUMIN 1.7 g/dL (3.4-5.0); ANION GAP 4 mmol/L (5-15); CALCIUM 8.2 mg/dL (8.5-10.1); CHLORIDE 107 mmol/L (98-107)
[2020-07-29 17:55] LABS: ALKALINE PHOSPHATASE 111 U/L (45-117); BILIRUBIN,TOTAL 3.5 mg/dL (0.2-1.0); CREATININE 1.03 mg/dL (0.7-1.3); TOTAL PROTEIN 7.4 g/dL (6.4-8.2)
[2020-07-29 18:06] LABS: RED CELL DISTRIBUTION WIDTH 17.2 % (9.4-14.8)
[2020-07-29 18:15] LABS: BASOPHILS % (AUTO) 0 % (0-1); EOSINOPHILS % (AUTO) 0 % (1-7); LYMPHOCYTES % (AUTO) 6 % (22-44); MEAN CORPUSCULAR HEMOGLOBIN 38.7 pg (27.5-34.5); MEAN CORPUSCULAR HGB CONC 33.7 g/dL (33.2-36.2); MEAN PLATELET VOLUME 8.3 fL (7.4-10.4); MONOCYTES % (AUTO) 11 % (2-9); NEUTROPHILS % (AUTO) 82 % (42-75); PLATELET COUNT 152 x10^3/uL (130-400); RED BLOOD COUNT 2.56 x10^6/uL (4.38-5.82)
--- NOTE | 2020-07-29 18:36 | NUR ---
PATIENT RESTING IN GURNEY WITH EYES CLOSED, RESPIRATIONS EVEN AND UNLABORED, CONNECTED TO VITALS MACHINE, SIDE RAILS UP X2, CALL LIGHT WITHIN REACH.
[2020-07-29 18:43] LABS: MD SCAN
[2020-07-29] MEDS ORDERED: LACTULOSE 20 GM/30 ML UDC PO ONE (19:00)
[2020-07-29] MEDS ORDERED: LIDOCAINE 1%, 10ML ONE (19:12)
--- NOTE | 2020-07-29 19:16 | NUR ---
URINE SAMPLE COLLECTED VIA STRAIGHT CATH AND WALKED TO LAB.
[2020-07-29] MEDS ORDERED: SODIUM CHLORIDE FLUSH 10ML SYR IVF ONE (19:30)
[2020-07-29 19:48] LABS: MICROSCOPIC INDICATED
--- NOTE | 2020-07-29 19:51 | NUR ---
REPORT TO BERYL PT READY TO GO AFTER MED AND IV PLACEMENT.
--- NOTE | 2020-07-29 20:06 | NUR ---
22 GAUGE IV STARTED LEFT AC, LACTULOSE GIVEN. PATIENT TRANSFERRED TO MEDICAL/TELEMETRY VIA RNEY IN STABLE CONDITION WITH AUTOMOBILE UPHOLSTERER AND DIRECTOR SELECTION AND ADMINISTRATION. ALL PATIENT BELONGINGS GATHERED AND TAKEN WITH PATIENT.
[2020-07-29 20:19] VITALS: BP 116/73
[2020-07-30 00:34] VITALS: BP 117/80
[2020-07-30] MEDS ORDERED: ENALAPRILAT 1.25 MG/ML, 2ML IVPush PRN (02:00)
[2020-07-30] MEDS ORDERED: DOCUSATE 100 MG CAPSULE PO PRN (02:00)
[2020-07-30 04:54] LABS: BASOPHILS % (AUTO) 0 % (0-1); EOSINOPHILS % (AUTO) 0 % (1-7); LYMPHOCYTES % (AUTO) 8 % (22-44); MEAN CORPUSCULAR HEMOGLOBIN 39.4 pg (27.5-34.5); MEAN CORPUSCULAR HGB CONC 33.9 g/dL (33.2-36.2); MEAN PLATELET VOLUME 7.2 fL (7.4-10.4); MONOCYTES % (AUTO) 11 % (2-9); NEUTROPHILS % (AUTO) 80 % (42-75); PLATELET COUNT 165 x10^3/uL (130-400); RED BLOOD COUNT 2.52 x10^6/uL (4.38-5.82); RED CELL DISTRIBUTION WIDTH 16.7 % (9.4-14.8)
[2020-07-30 05:03] LABS: ANION GAP 5 mmol/L (5-15); CALCIUM 8.1 mg/dL (8.5-10.1); CHLORIDE 106 mmol/L (98-107); CREATININE 0.93 mg/dL (0.7-1.3)
[2020-07-30 05:11] LABS: MD NO
[2020-07-30 05:16] VITALS: BP 110/78
[2020-07-30 09:52] VITALS: BP 103/69
[2020-07-30] MEDS ORDERED: FUROSEMIDE 20 MG/2 ML IV ONE (14:30)
[2020-07-30] MEDS: SIMETHICONE 125 MG CHEW TAB PO SCH ×2 (15:33→21:41)
[2020-07-30 15:45] VITALS: BP 119/66
[2020-07-30 20:18] VITALS: BP 118/74
[2020-07-30] MEDS: LACTULOSE 20 GM/30 ML UDC PO SCH (21:40)
[2020-07-30] MEDS: MELATONIN 5 MG TABLET PO PRN (21:41)
[2020-07-30] MEDS: LIDODERM 5% PATCH TD PRN (21:41)
[2020-07-31 00:42] VITALS: BP 120/81
[2020-07-31 08:32] VITALS: BP 98/76
[2020-07-31 08:34] LABS: BASOPHILS % (AUTO) 1 % (0-1); EOSINOPHILS % (AUTO) 1 % (1-7); LYMPHOCYTES % (AUTO) 13 % (22-44); MEAN CORPUSCULAR HEMOGLOBIN 38.8 pg (27.5-34.5); MEAN CORPUSCULAR HGB CONC 33.5 g/dL (33.2-36.2); MONOCYTES % (AUTO) 12 % (2-9); NEUTROPHILS % (AUTO) 73 % (42-75); PLATELET COUNT 187 x10^3/uL (130-400); RED BLOOD COUNT 2.58 x10^6/uL (4.38-5.82)
[2020-07-31 08:35] LABS: MD NO
[2020-07-31] MEDS: SIMETHICONE 125 MG CHEW TAB PO SCH ×4 (08:49→21:27)
[2020-07-31] MEDS: LACTULOSE 20 GM/30 ML UDC PO SCH ×2 (08:49→21:27)
[2020-07-31 08:50] LABS: ALBUMIN 1.7 g/dL (3.4-5.0); ANION GAP 4 mmol/L (5-15); CALCIUM 8.1 mg/dL (8.5-10.1); CHLORIDE 102 mmol/L (98-107)
[2020-07-31 08:54] LABS: ALANINE AMINOTRANSFERASE 26 U/L (12-78); ALKALINE PHOSPHATASE 88 U/L (45-117); BILIRUBIN,TOTAL 3.4 mg/dL (0.2-1.0); CREATININE 0.95 mg/dL (0.7-1.3); TOTAL PROTEIN 7.5 g/dL (6.4-8.2)
[2020-07-31 13:00] VITALS: BP 103/73
[2020-07-31 19:20] VITALS: BP 104/70
[2020-07-31] MEDS: MELATONIN 5 MG TABLET PO PRN (21:27)
[2020-07-31] MEDS: OXYcodone IR 5MG TABLET PO PRN (21:28)
[2020-08-01 01:21] VITALS: BP 120/81
[2020-08-01] MEDS: OXYcodone IR 5MG TABLET PO PRN (04:08)
[2020-08-01] MEDS: LEVOTHYROXINE 100 MCG TABLET PO SCH (04:08)
[2020-08-01 04:28] LABS: ALBUMIN 1.6 g/dL (3.4-5.0); ANION GAP 4 mmol/L (5-15); CALCIUM 7.8 mg/dL (8.5-10.1); CHLORIDE 102 mmol/L (98-107)
[2020-08-01 04:30] LABS: BASOPHILS % (AUTO) 1 % (0-1); EOSINOPHILS % (AUTO) 2 % (1-7); LYMPHOCYTES % (AUTO) 16 % (22-44); MEAN CORPUSCULAR HEMOGLOBIN 38.3 pg (27.5-34.5); MEAN CORPUSCULAR HGB CONC 33.3 g/dL (33.2-36.2); MEAN PLATELET VOLUME 7.5 fL (7.4-10.4); MONOCYTES % (AUTO) 11 % (2-9); NEUTROPHILS % (AUTO) 71 % (42-75); PLATELET COUNT 184 x10^3/uL (130-400); RED BLOOD COUNT 2.67 x10^6/uL (4.38-5.82); RED CELL DISTRIBUTION WIDTH 16.6 % (9.4-14.8)
[2020-08-01 04:31] LABS: ALANINE AMINOTRANSFERASE 27 U/L (12-78); ALKALINE PHOSPHATASE 83 U/L (45-117); BILIRUBIN,TOTAL 3.6 mg/dL (0.2-1.0); CREATININE 0.84 mg/dL (0.7-1.3); TOTAL PROTEIN 7.4 g/dL (6.4-8.2)
[2020-08-01 04:33] LABS: MD NO
[2020-08-01] MEDS ORDERED: MAGNESIUM SULFATE PMX 2GM/50ML 50 ML IV ONE (07:00)
[2020-08-01 07:50] VITALS: BP 120/85
[2020-08-01] MEDS: SIMETHICONE 125 MG CHEW TAB PO SCH ×4 (08:56→21:08)
[2020-08-01] MEDS: LACTULOSE 20 GM/30 ML UDC PO SCH ×2 (08:56→21:07)
[2020-08-01] MEDS ORDERED: FUROSEMIDE 40 MG/4 ML IV ONE (11:00)
[2020-08-01] MEDS: SPIRONOLACTONE 50 MG TABLET PO SCH (12:01)
[2020-08-01] MEDS: DICYCLOMINE 10 MG CAPSULE PO SCH ×2 (12:01→16:57)
[2020-08-01 13:54] VITALS: BP 116/68
[2020-08-01] MEDS: LIDODERM 5% PATCH TD PRN (18:27)
[2020-08-01 18:32] VITALS: BP 120/76
[2020-08-01] MEDS: INSULIN GLARGINE 100 UNITS/ML, PEN SQ-INSULIN SCH (21:08)
[2020-08-01] MEDS: QUETIAPINE 100MG TABLET PO SCH (21:08)
[2020-08-01] MEDS: MELATONIN 5 MG TABLET PO PRN (21:08)
[2020-08-02 00:05] VITALS: BP 96/62
[2020-08-02 04:50] LABS: BASOPHILS % (AUTO) 1 % (0-1); EOSINOPHILS % (AUTO) 2 % (1-7); LYMPHOCYTES % (AUTO) 20 % (22-44); MEAN CORPUSCULAR HEMOGLOBIN 39.2 pg (27.5-34.5); MEAN CORPUSCULAR HGB CONC 34.1 g/dL (33.2-36.2); MONOCYTES % (AUTO) 11 % (2-9); NEUTROPHILS % (AUTO) 66 % (42-75); PLATELET COUNT 157 x10^3/uL (130-400); RED BLOOD COUNT 2.46 x10^6/uL (4.38-5.82)
[2020-08-02 04:55] LABS: MD NO
[2020-08-02 05:02] LABS: ALBUMIN 1.6 g/dL (3.4-5.0); ANION GAP 4 mmol/L (5-15); CALCIUM 8.1 mg/dL (8.5-10.1); CHLORIDE 102 mmol/L (98-107)
[2020-08-02 05:06] LABS: ALANINE AMINOTRANSFERASE 29 U/L (12-78); ALKALINE PHOSPHATASE 82 U/L (45-117); BILIRUBIN,TOTAL 3.7 mg/dL (0.2-1.0); CREATININE 0.97 mg/dL (0.7-1.3)
[2020-08-02] MEDS: LEVOTHYROXINE 100 MCG TABLET PO SCH (05:38)
[2020-08-02] MEDS: LEVOTHYROXINE 75 MCG TABLET PO SCH (05:51)
[2020-08-02] MEDS: OMEPRAZOLE 20 MG CAPSULE.DR PO SCH (05:51)
[2020-08-02 07:00] VITALS: BP 101/65
[2020-08-02] MEDS ORDERED: FUROSEMIDE 40 MG/4 ML IV ONE (07:30)
[2020-08-02] MEDS ORDERED: POTASSIUM CHLORIDE 20 MEQ TAB.ER.PRT PO ONE (07:30)
[2020-08-02] MEDS ORDERED: ALBUMIN HUMAN 25% 100 ML IV ONE (08:00)
[2020-08-02] MEDS: LACTULOSE 20 GM/30 ML UDC PO SCH ×2 (08:53→21:00)
[2020-08-02] MEDS: FLUOXETINE HCL 20 MG CAPSULE PO SCH (08:53)
[2020-08-02] MEDS: THIAMINE 100MG TABLET PO SCH (08:54)
[2020-08-02] MEDS: MULTIVITAMIN 1 TABLET PO SCH (08:54)
[2020-08-02] MEDS: FOLIC ACID 1 MG TABLET PO SCH (08:54)
[2020-08-02] MEDS: SPIRONOLACTONE 50 MG TABLET PO SCH (08:54)
[2020-08-02] MEDS: DICYCLOMINE 10 MG CAPSULE PO SCH ×3 (08:54→16:52)
[2020-08-02] MEDS: SIMETHICONE 125 MG CHEW TAB PO SCH ×4 (08:55→21:12)
[2020-08-02] MEDS: MAGNESIUM OXIDE 400 MG TABLET PO SCH (08:55)
[2020-08-02] MEDS ORDERED: BISACODYL 10 MG SUPP ONE (08:58)
[2020-08-02] MEDS: BISACODYL 10 MG SUPP PR PRN (09:09)
[2020-08-02 13:37] VITALS: BP 100/56
[2020-08-02 18:38] VITALS: BP 106/62
[2020-08-02] MEDS: INSULIN GLARGINE 100 UNITS/ML, PEN SQ-INSULIN SCH (21:00)
[2020-08-02] MEDS: QUETIAPINE 100MG TABLET PO SCH (21:13)
[2020-08-03 01:49] VITALS: BP 101/57
[2020-08-03 05:57] LABS: ANION GAP 3 mmol/L (5-15); CALCIUM 8.1 mg/dL (8.5-10.1); CHLORIDE 104 mmol/L (98-107)
[2020-08-03] MEDS: LEVOTHYROXINE 100 MCG TABLET PO SCH (06:14)
[2020-08-03] MEDS: LEVOTHYROXINE 75 MCG TABLET PO SCH (06:15)
[2020-08-03] MEDS: SIMETHICONE 125 MG CHEW TAB PO SCH ×4 (06:15→21:22)
[2020-08-03] MEDS: OMEPRAZOLE 20 MG CAPSULE.DR PO SCH (06:15)
[2020-08-03 07:24] VITALS: BP 96/66
[2020-08-03] MEDS ORDERED: ALBUTEROL HFA 90 MCG/SPRAY INH PRN ×2 (09:30→10:00)
[2020-08-03] MEDS: MAGNESIUM OXIDE 400 MG TABLET PO SCH (09:58)
[2020-08-03] MEDS: FUROSEMIDE 40 MG TABLET PO SCH (09:58)
[2020-08-03] MEDS: FLUOXETINE HCL 20 MG CAPSULE PO SCH (09:58)
[2020-08-03] MEDS: DICYCLOMINE 10 MG CAPSULE PO SCH ×3 (09:59→17:05)
[2020-08-03] MEDS: MULTIVITAMIN 1 TABLET PO SCH (09:59)
[2020-08-03] MEDS: FOLIC ACID 1 MG TABLET PO SCH (09:59)
[2020-08-03] MEDS: THIAMINE 100MG TABLET PO SCH (09:59)
[2020-08-03] MEDS: SPIRONOLACTONE 50 MG TABLET PO SCH (09:59)
[2020-08-03 12:49] VITALS: BP 109/66
[2020-08-03] MEDS: LACTULOSE 20 GM/30 ML UDC PO SCH ×4 (13:13→21:22)
[2020-08-03] MEDS: DOCUSATE 100 MG CAPSULE PO PRN (17:05)
[2020-08-03] MEDS: LIDODERM 5% PATCH TD PRN (17:33)
[2020-08-03 18:37] VITALS: BP 108/70
[2020-08-03] MEDS: QUETIAPINE 100MG TABLET PO SCH (21:22)
[2020-08-03 23:49] VITALS: BP 109/66
[2020-08-03] MEDS: MELATONIN 5 MG TABLET PO PRN (23:59)
[2020-08-04] MEDS: OXYcodone IR 5MG TABLET PO PRN ×2 (00:51→10:29)
[2020-08-04 05:04] LABS: BASOPHILS % (AUTO) 1 % (0-1); EOSINOPHILS % (AUTO) 2 % (1-7); LYMPHOCYTES % (AUTO) 20 % (22-44); MEAN CORPUSCULAR HEMOGLOBIN 39.2 pg (27.5-34.5); MEAN CORPUSCULAR HGB CONC 34.3 g/dL (33.2-36.2); MEAN PLATELET VOLUME 6.9 fL (7.4-10.4); MONOCYTES % (AUTO) 12 % (2-9); NEUTROPHILS % (AUTO) 65 % (42-75); PLATELET COUNT 159 x10^3/uL (130-400); RED BLOOD COUNT 2.42 x10^6/uL (4.38-5.82); RED CELL DISTRIBUTION WIDTH 16.5 % (9.4-14.8)
[2020-08-04 05:10] LABS: MD NO
[2020-08-04 06:06] VITALS: BP 144/98
[2020-08-04 06:18] VITALS: BP 117/71
[2020-08-04 06:20] LABS: ANION GAP 5 mmol/L (5-15); CALCIUM 8.1 mg/dL (8.5-10.1); CHLORIDE 102 mmol/L (98-107)
[2020-08-04 06:21] LABS: ALANINE AMINOTRANSFERASE 31 U/L (12-78); ALBUMIN 1.8 g/dL (3.4-5.0); ALKALINE PHOSPHATASE 85 U/L (45-117); TOTAL PROTEIN 7.2 g/dL (6.4-8.2)
[2020-08-04] MEDS: OMEPRAZOLE 20 MG CAPSULE.DR PO SCH (06:23)
[2020-08-04] MEDS: SIMETHICONE 125 MG CHEW TAB PO SCH ×4 (06:23→19:46)
[2020-08-04] MEDS: LEVOTHYROXINE 100 MCG TABLET PO SCH (06:23)
[2020-08-04] MEDS: MAGNESIUM OXIDE 400 MG TABLET PO SCH (09:00)
[2020-08-04] MEDS: FLUOXETINE HCL 20 MG CAPSULE PO SCH (10:29)
[2020-08-04] MEDS: THIAMINE 100MG TABLET PO SCH (10:29)
[2020-08-04] MEDS: DICYCLOMINE 10 MG CAPSULE PO SCH ×3 (10:29→17:54)
[2020-08-04] MEDS: MULTIVITAMIN 1 TABLET PO SCH (10:29)
[2020-08-04] MEDS: FUROSEMIDE 40 MG TABLET PO SCH (10:29)
[2020-08-04] MEDS: LACTULOSE 20 GM/30 ML UDC PO SCH (10:29)
[2020-08-04] MEDS: FOLIC ACID 1 MG TABLET PO SCH (10:30)
[2020-08-04] MEDS: SPIRONOLACTONE 50 MG TABLET PO SCH (10:30)
[2020-08-04 11:27] VITALS: BP 94/61
[2020-08-04] MEDS ORDERED: MAGNESIUM SULFATE PMX 4GM/100M 100 ML IVPB ONE (15:00)
[2020-08-04] MEDS: LACTULOSE 10 GM/15 ML UDC PO SCH ×3 (15:22→19:45)
[2020-08-04] MEDS: QUETIAPINE 100MG TABLET PO SCH (19:46)
[2020-08-04 20:42] VITALS: BP 115/66
[2020-08-05 01:34] VITALS: BP 126/76
[2020-08-05] MEDS: OMEPRAZOLE 20 MG CAPSULE.DR PO SCH (06:20)
[2020-08-05] MEDS: SIMETHICONE 125 MG CHEW TAB PO SCH ×4 (06:20→20:26)
[2020-08-05] MEDS: LEVOTHYROXINE 100 MCG TABLET PO SCH (06:21)
[2020-08-05 07:17] LABS: BASOPHILS % (AUTO) 1 % (0-1); EOSINOPHILS % (AUTO) 3 % (1-7); LYMPHOCYTES % (AUTO) 22 % (22-44); MEAN CORPUSCULAR HEMOGLOBIN 38.9 pg (27.5-34.5); MEAN CORPUSCULAR HGB CONC 33.9 g/dL (33.2-36.2); MEAN PLATELET VOLUME 7.3 fL (7.4-10.4); MONOCYTES % (AUTO) 12 % (2-9); NEUTROPHILS % (AUTO) 62 % (42-75); PLATELET COUNT 136 x10^3/uL (130-400); RED BLOOD COUNT 2.46 x10^6/uL (4.38-5.82); RED CELL DISTRIBUTION WIDTH 16.2 % (9.4-14.8)
[2020-08-05 07:24] LABS: MD NO
[2020-08-05 07:48] LABS: ANION GAP 7 mmol/L (5-15); CALCIUM 8.3 mg/dL (8.5-10.1); CHLORIDE 103 mmol/L (98-107)
[2020-08-05 07:49] LABS: ALANINE AMINOTRANSFERASE 31 U/L (12-78); ALKALINE PHOSPHATASE 87 U/L (45-117); BILIRUBIN,TOTAL 2.7 mg/dL (0.2-1.0); CREATININE 0.86 mg/dL (0.7-1.3); TOTAL PROTEIN 7.2 g/dL (6.4-8.2)
[2020-08-05 07:50] LABS: ALBUMIN 1.7 g/dL (3.4-5.0)
[2020-08-05] MEDS: THIAMINE 100MG TABLET PO SCH (09:00)
[2020-08-05] MEDS: MULTIVITAMIN 1 TABLET PO SCH (10:13)
[2020-08-05] MEDS: FLUOXETINE HCL 20 MG CAPSULE PO SCH (10:14)
[2020-08-05] MEDS: FOLIC ACID 1 MG TABLET PO SCH (10:14)
[2020-08-05] MEDS: SPIRONOLACTONE 50 MG TABLET PO SCH (10:14)
[2020-08-05] MEDS: FUROSEMIDE 40 MG TABLET PO SCH (10:14)
[2020-08-05] MEDS: DICYCLOMINE 10 MG CAPSULE PO SCH ×3 (10:14→17:49)
[2020-08-05] MEDS: LACTULOSE 10 GM/15 ML UDC PO SCH ×4 (10:15→20:30)
[2020-08-05 10:48] VITALS: BP 109/63
[2020-08-05] MEDS: DOCUSATE 100 MG CAPSULE PO PRN (11:53)
[2020-08-05] MEDS: MAGNESIUM OXIDE 400 MG TABLET PO SCH (11:53)
[2020-08-05] MEDS: RIFAXIMIN 550 MG TABLET PO SCH ×2 (11:53→20:26)
[2020-08-05] MEDS: BISACODYL 10 MG SUPP PR PRN (11:54)
[2020-08-05 11:59] VITALS: BP 103/67
[2020-08-05 12:05] VITALS: BP 95/65
[2020-08-05 19:14] VITALS: BP 102/63
[2020-08-05] MEDS: QUETIAPINE 100MG TABLET PO SCH (20:27)
[2020-08-06 00:44] VITALS: BP 130/70
[2020-08-06] MEDS: OXYcodone IR 5MG TABLET PO PRN (03:44)
[2020-08-06] MEDS: OMEPRAZOLE 20 MG CAPSULE.DR PO SCH (06:00)
[2020-08-06] MEDS: LEVOTHYROXINE 100 MCG TABLET PO SCH (06:00)
[2020-08-06] MEDS: LACTULOSE 10 GM/15 ML UDC PO SCH ×5 (06:00→20:34)
[2020-08-06] MEDS: SIMETHICONE 125 MG CHEW TAB PO SCH ×4 (06:26→20:34)
[2020-08-06 07:18] LABS: BASOPHILS % (AUTO) 1 % (0-1); EOSINOPHILS % (AUTO) 2 % (1-7); LYMPHOCYTES % (AUTO) 19 % (22-44); MEAN CORPUSCULAR HEMOGLOBIN 39.2 pg (27.5-34.5); MEAN CORPUSCULAR HGB CONC 34.3 g/dL (33.2-36.2); MEAN PLATELET VOLUME 7.5 fL (7.4-10.4); MONOCYTES % (AUTO) 13 % (2-9); NEUTROPHILS % (AUTO) 65 % (42-75); PLATELET COUNT 147 x10^3/uL (130-400); RED BLOOD COUNT 2.43 x10^6/uL (4.38-5.82)
[2020-08-06 07:22] LABS: MD NO
[2020-08-06 07:24] LABS: ALANINE AMINOTRANSFERASE 27 U/L (12-78); ALBUMIN 1.7 g/dL (3.4-5.0); ANION GAP 6 mmol/L (5-15); CALCIUM 8.1 mg/dL (8.5-10.1); CHLORIDE 104 mmol/L (98-107); CREATININE 0.94 mg/dL (0.7-1.3)
[2020-08-06 07:26] LABS: ALKALINE PHOSPHATASE 85 U/L (45-117); BILIRUBIN,TOTAL 2.3 mg/dL (0.2-1.0); TOTAL PROTEIN 6.9 g/dL (6.4-8.2)
[2020-08-06 08:38] VITALS: BP 106/67
[2020-08-06] MEDS: SPIRONOLACTONE 50 MG TABLET PO SCH (08:40)
[2020-08-06] MEDS: MAGNESIUM OXIDE 400 MG TABLET PO SCH (08:40)
[2020-08-06] MEDS: FUROSEMIDE 40 MG TABLET PO SCH (08:40)
[2020-08-06] MEDS: FOLIC ACID 1 MG TABLET PO SCH (08:40)
[2020-08-06] MEDS: MULTIVITAMIN 1 TABLET PO SCH (08:40)
[2020-08-06] MEDS: THIAMINE 100MG TABLET PO SCH (08:40)
[2020-08-06] MEDS: RIFAXIMIN 550 MG TABLET PO SCH ×2 (08:40→20:37)
[2020-08-06] MEDS: DICYCLOMINE 10 MG CAPSULE PO SCH ×3 (08:40→17:26)
[2020-08-06] MEDS: FLUOXETINE HCL 20 MG CAPSULE PO SCH (08:41)
[2020-08-06 12:17] VITALS: BP 104/68
[2020-08-06] MEDS ORDERED: MAGNESIUM SULFATE PMX 2GM/50ML 50 ML IV ONE (16:00)
[2020-08-06 19:54] VITALS: BP 111/85
[2020-08-06] MEDS: QUETIAPINE 100MG TABLET PO SCH (20:36)
[2020-08-07 01:17] VITALS: BP 106/67
[2020-08-07] MEDS: OMEPRAZOLE 20 MG CAPSULE.DR PO SCH (05:54)
[2020-08-07] MEDS: LEVOTHYROXINE 100 MCG TABLET PO SCH (05:54)
[2020-08-07] MEDS: LACTULOSE 10 GM/15 ML UDC PO SCH ×5 (05:55→20:51)
[2020-08-07 07:45] VITALS: BP 100/63
[2020-08-07] MEDS: FLUOXETINE HCL 20 MG CAPSULE PO SCH (10:12)
[2020-08-07] MEDS: DICYCLOMINE 10 MG CAPSULE PO SCH ×4 (10:12→18:29)
[2020-08-07] MEDS: THIAMINE 100MG TABLET PO SCH (10:13)
[2020-08-07] MEDS: MAGNESIUM OXIDE 400 MG TABLET PO SCH (10:13)
[2020-08-07] MEDS: FOLIC ACID 1 MG TABLET PO SCH (10:13)
[2020-08-07] MEDS: FUROSEMIDE 40 MG TABLET PO SCH (10:13)
[2020-08-07] MEDS: MULTIVITAMIN 1 TABLET PO SCH (10:13)
[2020-08-07] MEDS: SPIRONOLACTONE 50 MG TABLET PO SCH (10:18)
[2020-08-07] MEDS: SIMETHICONE 125 MG CHEW TAB PO SCH ×4 (10:18→20:51)
[2020-08-07] MEDS: RIFAXIMIN 550 MG TABLET PO SCH ×2 (10:18→20:51)
[2020-08-07 10:27] LABS: ALBUMIN 1.7 g/dL (3.4-5.0); ANION GAP 7 mmol/L (5-15); CALCIUM 8.5 mg/dL (8.5-10.1); CHLORIDE 106 mmol/L (98-107)
[2020-08-07 10:30] LABS: ALANINE AMINOTRANSFERASE 30 U/L (12-78); ALKALINE PHOSPHATASE 95 U/L (45-117); BILIRUBIN,TOTAL 2.9 mg/dL (0.2-1.0); CREATININE 1.08 mg/dL (0.7-1.3); TOTAL PROTEIN 7.7 g/dL (6.4-8.2)
[2020-08-07 12:49] VITALS: BP 118/66
[2020-08-07 13:27] LABS: BASOPHILS % (AUTO) 1 % (0-1); EOSINOPHILS % (AUTO) 1 % (1-7); LYMPHOCYTES % (AUTO) 8 % (22-44); MEAN CORPUSCULAR HEMOGLOBIN 39.1 pg (27.5-34.5); MEAN CORPUSCULAR HGB CONC 34.6 g/dL (33.2-36.2); MEAN PLATELET VOLUME 7.4 fL (7.4-10.4); MONOCYTES % (AUTO) 10 % (2-9); NEUTROPHILS % (AUTO) 80 % (42-75); PLATELET COUNT 162 x10^3/uL (130-400); RED BLOOD COUNT 2.54 x10^6/uL (4.38-5.82); RED CELL DISTRIBUTION WIDTH 15.7 % (9.4-14.8)
[2020-08-07 13:34] LABS: MD NO
[2020-08-07] MEDS ORDERED: LACTULOSE 3.3 GM/5 ML ORAL.SOL RC ONE (17:30)
[2020-08-07 18:46] VITALS: BP 111/75
[2020-08-07] MEDS ORDERED: QUETIAPINE 25MG TABLET ONE (20:36)
[2020-08-07] MEDS: QUETIAPINE 100MG TABLET PO SCH (20:59)
[2020-08-07] MEDS ORDERED: LACTULOSE 20 GM/30 ML UDC PR SCH (21:00)
[2020-08-08 00:58] VITALS: BP 114/72
[2020-08-08 04:44] LABS: BASOPHILS % (AUTO) 1 % (0-1); EOSINOPHILS % (AUTO) 2 % (1-7); LYMPHOCYTES % (AUTO) 12 % (22-44); MEAN CORPUSCULAR HEMOGLOBIN 39.4 pg (27.5-34.5); MEAN PLATELET VOLUME 7.7 fL (7.4-10.4); MONOCYTES % (AUTO) 11 % (2-9); NEUTROPHILS % (AUTO) 75 % (42-75); PLATELET COUNT 153 x10^3/uL (130-400); RED BLOOD COUNT 2.48 x10^6/uL (4.38-5.82); RED CELL DISTRIBUTION WIDTH 15.9 % (9.4-14.8)
[2020-08-08 04:53] LABS: MD NO
[2020-08-08 05:00] LABS: ALANINE AMINOTRANSFERASE 26 U/L (12-78); ALBUMIN 1.7 g/dL (3.4-5.0); ANION GAP 3 mmol/L (5-15); CALCIUM 8.3 mg/dL (8.5-10.1); CHLORIDE 106 mmol/L (98-107)
[2020-08-08 05:03] LABS: ALKALINE PHOSPHATASE 93 U/L (45-117); BILIRUBIN,TOTAL 2.5 mg/dL (0.2-1.0); CREATININE 1.07 mg/dL (0.7-1.3); TOTAL PROTEIN 7.1 g/dL (6.4-8.2)
[2020-08-08] MEDS: OMEPRAZOLE 20 MG CAPSULE.DR PO SCH (06:03)
[2020-08-08] MEDS: LEVOTHYROXINE 100 MCG TABLET PO SCH (06:03)
[2020-08-08] MEDS: SIMETHICONE 125 MG CHEW TAB PO SCH ×4 (06:03→21:36)
[2020-08-08] MEDS: LACTULOSE 10 GM/15 ML UDC PO SCH ×5 (06:03→21:36)
[2020-08-08 07:09] VITALS: BP 106/66
[2020-08-08] MEDS: RIFAXIMIN 550 MG TABLET PO SCH ×2 (10:05→21:36)
[2020-08-08] MEDS: MULTIVITAMIN 1 TABLET PO SCH (10:06)
[2020-08-08] MEDS: POTASSIUM CHLORIDE 20 MEQ TAB.ER.PRT PO SCH ×2 (10:06→18:10)
[2020-08-08] MEDS: FLUOXETINE HCL 20 MG CAPSULE PO SCH (10:06)
[2020-08-08] MEDS: MAGNESIUM OXIDE 400 MG TABLET PO SCH (10:06)
[2020-08-08] MEDS: FOLIC ACID 1 MG TABLET PO SCH (10:06)
[2020-08-08] MEDS: THIAMINE 100MG TABLET PO SCH (10:06)
[2020-08-08] MEDS: DICYCLOMINE 10 MG CAPSULE PO SCH ×2 (10:06→18:10)
[2020-08-08] MEDS: SPIRONOLACTONE 50 MG TABLET PO SCH (10:14)
[2020-08-08] MEDS: FUROSEMIDE 40 MG TABLET PO SCH (10:14)
[2020-08-08] MEDS ORDERED: LACTULOSE 20 GM/30 ML UDC PR SCH (11:51)
[2020-08-08 13:04] VITALS: BP 114/73
[2020-08-08] MEDS: LACTULOSE 3.3 GM/5 ML ORAL.SOL RC SCH ×2 (15:22→23:05)
[2020-08-08 18:33] VITALS: BP 103/62
[2020-08-08] MEDS ORDERED: LACTULOSE 3.3 GM/5 ML ORAL.SOL RC SCH (21:00)
[2020-08-08] MEDS: QUETIAPINE 100MG TABLET PO SCH (21:37)
[2020-08-09 02:00] VITALS: BP 109/66
[2020-08-09] MEDS: OMEPRAZOLE 20 MG CAPSULE.DR PO SCH (06:41)
[2020-08-09] MEDS: LACTULOSE 10 GM/15 ML UDC PO SCH ×5 (06:41→21:54)
[2020-08-09] MEDS: SIMETHICONE 125 MG CHEW TAB PO SCH ×4 (06:41→21:54)
[2020-08-09] MEDS: LEVOTHYROXINE 100 MCG TABLET PO SCH (06:41)
[2020-08-09 07:00] VITALS: BP 106/64
[2020-08-09 08:39] LABS: BASOPHILS % (AUTO) 1 % (0-1); EOSINOPHILS % (AUTO) 4 % (1-7); LYMPHOCYTES % (AUTO) 24 % (22-44); MEAN CORPUSCULAR HEMOGLOBIN 39.1 pg (27.5-34.5); MEAN CORPUSCULAR HGB CONC 34.4 g/dL (33.2-36.2); MEAN PLATELET VOLUME 7.6 fL (7.4-10.4); MONOCYTES % (AUTO) 14 % (2-9); NEUTROPHILS % (AUTO) 57 % (42-75); PLATELET COUNT 146 x10^3/uL (130-400); RED BLOOD COUNT 2.36 x10^6/uL (4.38-5.82); RED CELL DISTRIBUTION WIDTH 15.5 % (9.4-14.8)
[2020-08-09 08:44] LABS: MD NO
[2020-08-09 08:45] LABS: ALANINE AMINOTRANSFERASE 26 U/L (12-78); ALBUMIN 1.6 g/dL (3.4-5.0); ANION GAP 8 mmol/L (5-15); CALCIUM 8.2 mg/dL (8.5-10.1); CHLORIDE 110 mmol/L (98-107); CREATININE 1.18 mg/dL (0.7-1.3)
[2020-08-09 08:47] LABS: ALKALINE PHOSPHATASE 90 U/L (45-117); BILIRUBIN,TOTAL 2.7 mg/dL (0.2-1.0); TOTAL PROTEIN 6.8 g/dL (6.4-8.2)
[2020-08-09] MEDS: SPIRONOLACTONE 50 MG TABLET PO SCH (09:53)
[2020-08-09] MEDS: RIFAXIMIN 550 MG TABLET PO SCH ×2 (09:53→21:54)
[2020-08-09] MEDS: FUROSEMIDE 40 MG TABLET PO SCH (09:53)
[2020-08-09] MEDS: MAGNESIUM OXIDE 400 MG TABLET PO SCH (09:53)
[2020-08-09] MEDS: FOLIC ACID 1 MG TABLET PO SCH (09:54)
[2020-08-09] MEDS: THIAMINE 100MG TABLET PO SCH (09:56)
[2020-08-09] MEDS: FLUOXETINE HCL 20 MG CAPSULE PO SCH (09:56)
[2020-08-09] MEDS: MULTIVITAMIN 1 TABLET PO SCH (09:56)
[2020-08-09] MEDS: DICYCLOMINE 10 MG CAPSULE PO SCH ×3 (09:57→17:30)
[2020-08-09 12:05] VITALS: BP 121/71
[2020-08-09] MEDS: POTASSIUM CHLORIDE 20 MEQ TAB.ER.PRT PO SCH ×2 (15:08→16:17)
[2020-08-09] MEDS: OXYcodone IR 5MG TABLET PO PRN (18:32)
[2020-08-09 18:46] VITALS: BP 129/80
[2020-08-09] MEDS: QUETIAPINE 100MG TABLET PO SCH (21:54)
[2020-08-10 00:27] VITALS: BP 108/68
[2020-08-10 05:48] LABS: ALBUMIN 1.5 g/dL (3.4-5.0); ANION GAP 8 mmol/L (5-15); CHLORIDE 111 mmol/L (98-107)
[2020-08-10] MEDS: LACTULOSE 10 GM/15 ML UDC PO SCH ×5 (05:51→19:44)
[2020-08-10] MEDS: OXYcodone IR 5MG TABLET PO PRN (05:52)
[2020-08-10] MEDS: LEVOTHYROXINE 100 MCG TABLET PO SCH (05:52)
[2020-08-10] MEDS: OMEPRAZOLE 20 MG CAPSULE.DR PO SCH (05:52)
[2020-08-10] MEDS: SIMETHICONE 125 MG CHEW TAB PO SCH ×4 (05:52→19:44)
[2020-08-10 05:53] LABS: ALANINE AMINOTRANSFERASE 25 U/L (12-78); ALKALINE PHOSPHATASE 86 U/L (45-117); BILIRUBIN,TOTAL 2.3 mg/dL (0.2-1.0); CREATININE 1.09 mg/dL (0.7-1.3); TOTAL PROTEIN 6.8 g/dL (6.4-8.2)
[2020-08-10 06:09] LABS: BASOPHILS % (AUTO) 3 % (0-1); EOSINOPHILS % (AUTO) 6 % (1-7); LYMPHOCYTES % (AUTO) 29 % (22-44); MEAN CORPUSCULAR HEMOGLOBIN 38.8 pg (27.5-34.5); MEAN CORPUSCULAR HGB CONC 34.1 g/dL (33.2-36.2); MEAN PLATELET VOLUME 8.5 fL (7.4-10.4); MONOCYTES % (AUTO) 13 % (2-9); NEUTROPHILS % (AUTO) 50 % (42-75); PLATELET COUNT 119 x10^3/uL (130-400); RED BLOOD COUNT 2.35 x10^6/uL (4.38-5.82); RED CELL DISTRIBUTION WIDTH 15.9 % (9.4-14.8)
[2020-08-10 06:26] LABS: MD NO
[2020-08-10 06:27] VITALS: BP 121/79
[2020-08-10] MEDS ORDERED: MAGNESIUM SULFATE 1 GM in SODIUM CHLORIDE 0.9% 50 ML IV ONE (08:00)
[2020-08-10] MEDS: POTASSIUM CHLORIDE 20 MEQ TAB.ER.PRT PO SCH ×2 (08:18→16:24)
[2020-08-10] MEDS: RIFAXIMIN 550 MG TABLET PO SCH ×2 (08:18→19:45)
[2020-08-10] MEDS: MULTIVITAMIN 1 TABLET PO SCH (08:18)
[2020-08-10] MEDS: MAGNESIUM OXIDE 400 MG TABLET PO SCH (08:18)
[2020-08-10] MEDS: DICYCLOMINE 10 MG CAPSULE PO SCH ×3 (08:19→16:24)
[2020-08-10] MEDS: SPIRONOLACTONE 50 MG TABLET PO SCH (08:19)
[2020-08-10] MEDS: FOLIC ACID 1 MG TABLET PO SCH (08:19)
[2020-08-10] MEDS: FLUOXETINE HCL 20 MG CAPSULE PO SCH (08:19)
[2020-08-10] MEDS: FUROSEMIDE 40 MG TABLET PO SCH (08:19)
[2020-08-10] MEDS: THIAMINE 100MG TABLET PO SCH (08:19)
[2020-08-10 11:44] VITALS: BP 119/77
[2020-08-10 19:19] VITALS: BP 137/73
[2020-08-10] MEDS: QUETIAPINE 100MG TABLET PO SCH (19:46)
[2020-08-11 01:52] VITALS: BP 118/76
[2020-08-11] MEDS: LACTULOSE 10 GM/15 ML UDC PO SCH ×5 (06:35→20:22)
[2020-08-11] MEDS: OMEPRAZOLE 20 MG CAPSULE.DR PO SCH (06:36)
[2020-08-11] MEDS: LEVOTHYROXINE 100 MCG TABLET PO SCH (06:37)
[2020-08-11 06:44] VITALS: BP 118/73
[2020-08-11] MEDS: SIMETHICONE 125 MG CHEW TAB PO SCH ×4 (07:00→20:23)
[2020-08-11 07:52] LABS: INTERNATIONAL NORMALIZED RATIO 2.12 (0.93-1.1); PROTHROMBIN TIME 22.3 Seconds (9.6-11.5)
[2020-08-11] MEDS: DICYCLOMINE 10 MG CAPSULE PO SCH ×3 (08:00→16:47)
[2020-08-11] MEDS: FUROSEMIDE 40 MG TABLET PO SCH (09:00)
[2020-08-11] MEDS: FLUOXETINE HCL 20 MG CAPSULE PO SCH (09:00)
[2020-08-11] MEDS ORDERED: PHYTONADIONE 10 MG in SODIUM CHLORIDE 0.9% 50 ML IV ONE (09:00)
[2020-08-11] MEDS: FOLIC ACID 1 MG TABLET PO SCH (09:00)
[2020-08-11] MEDS: MULTIVITAMIN 1 TABLET PO SCH (09:00)
[2020-08-11] MEDS: SPIRONOLACTONE 50 MG TABLET PO SCH (09:00)
[2020-08-11] MEDS: MAGNESIUM OXIDE 400 MG TABLET PO SCH (09:00)
[2020-08-11] MEDS: THIAMINE 100MG TABLET PO SCH (09:00)
[2020-08-11] MEDS: RIFAXIMIN 550 MG TABLET PO SCH ×2 (09:00→20:23)
[2020-08-11] MEDS ORDERED: NALOXONE 1 MG/ML, 2ML ONE (09:25)
[2020-08-11] MEDS ORDERED: MIDAZOLAM 1 MG/ML, 5ML ONE (09:25)
[2020-08-11] MEDS ORDERED: FENTANYL PF 100 MCG/2ML ONE ×2 (09:25)
[2020-08-11] MEDS ORDERED: FLUMAZENIL 0.1 MG/1 ML, 5ML ONE (09:25)
[2020-08-11] MEDS ORDERED: LIDOCAINE 1%, 20ML ONE (09:49)
[2020-08-11] MEDS ORDERED: LIDOCAINE 1%, 10ML ONE (10:26)
[2020-08-11 13:08] VITALS: BP 124/73
[2020-08-11] MEDS: OXYcodone IR 5MG TABLET PO PRN (15:16)
[2020-08-11 19:31] VITALS: BP 122/84
[2020-08-11] MEDS: QUETIAPINE 100MG TABLET PO SCH (20:23)
[2020-08-12 00:59] VITALS: BP 113/70
[2020-08-12] MEDS: OMEPRAZOLE 20 MG CAPSULE.DR PO SCH (05:39)
[2020-08-12] MEDS: LEVOTHYROXINE 100 MCG TABLET PO SCH (05:39)
[2020-08-12] MEDS: LACTULOSE 10 GM/15 ML UDC PO SCH ×2 (05:39→10:10)
[2020-08-12] MEDS: SIMETHICONE 125 MG CHEW TAB PO SCH ×2 (06:14→10:10)
[2020-08-12 06:20] VITALS: BP 105/63
[2020-08-12] MEDS: SPIRONOLACTONE 50 MG TABLET PO SCH (08:08)
[2020-08-12] MEDS: THIAMINE 100MG TABLET PO SCH (08:08)
[2020-08-12] MEDS: RIFAXIMIN 550 MG TABLET PO SCH (08:08)
[2020-08-12] MEDS: MAGNESIUM OXIDE 400 MG TABLET PO SCH (08:08)
[2020-08-12] MEDS: DICYCLOMINE 10 MG CAPSULE PO SCH ×2 (08:08→11:20)
[2020-08-12] MEDS: FOLIC ACID 1 MG TABLET PO SCH (08:08)
[2020-08-12] MEDS: FUROSEMIDE 40 MG TABLET PO SCH (08:09)
[2020-08-12] MEDS: FLUOXETINE HCL 20 MG CAPSULE PO SCH (08:09)
[2020-08-12] MEDS: MULTIVITAMIN 1 TABLET PO SCH (08:09)
[2020-08-12] MEDS ORDERED: LACT10SO28 PO (09:34)
[2020-08-12 12:01] VITALS: BP 114/74
[2020-08-12] MEDS: OXYcodone IR 5MG TABLET PO PRN (12:49)
== END 2020-08-12 13:50 | disposition hospice, inpatient (51) | DRG 432 ==
LOC: ED 19:14 → EDIP 19:57 → 4WST 20:07
PROVIDERS: ADMIT Family Medicine; ATTEND Hospitalist
PROC: 0W9G30Z Drainage of Peritoneal Cavity with Drainage Device, Percutaneous Approach (ICD-10-PCS; principal; 2020-08-11)
PROC: BW40ZZZ Ultrasonography of Abdomen (ICD-10-PCS; 2020-08-11)
DX: K70.40 Alcoholic hepatic failure without coma (principal); E43 Unspecified severe protein-calorie malnutrition; G93.41 Metabolic encephalopathy; K56.7 Ileus, unspecified; E03.9 Hypothyroidism, unspecified; E11.9 Type 2 diabetes mellitus without complications; I10 Essential (primary) hypertension; K70.31 Alcoholic cirrhosis of liver with ascites; F32.9 Major depressive disorder, single episode, unspecified; E83.42 Hypomagnesemia; D64.9 Anemia, unspecified; R60.0 Localized edema; Z79.4 Long term (current) use of insulin; Z90.49 Acquired absence of other specified parts of digestive tract; Z88.6 Allergy status to analgesic agent; Z68.32 Body mass index [BMI] 32.0-32.9, adult
CPT/HCPCS: 36415; 74018; 99285; J3490; 49418; 49421; 74176; 76700; 76705; 76942; 80048; 80053; 81001; 82140; 82962; 83605; 83735; 84100; 84443; 85025; 85610; 85730; 87086; 93306; 99156; 99157; G0378; J1940; J2250; J3010; J3430; J3475; P9047; C1729; J1815; J2310